=== PATIENT | female | born 1940 | race Caucasian/White ===

== ENCOUNTER → 2023-10-11 09:30 | Outpatient (REF) | payer MEDICARE, OTHER, SELFPAY | LOC: HWRAD 09:30 | PROVIDERS: ATTENDING PHYSICIAN Internal Medicine Geriatric Medicine | DX: R09.89 Other specified symptoms and signs involving the circulatory and respiratory systems (principal) | CPT/HCPCS: 93880 ==

== ENCOUNTER → 2023-11-23 10:31 | Outpatient (REF) | payer OTHER, SELFPAY | LOC: HWRAD 10:31 | PROVIDERS: ATTENDING PHYSICIAN Surgery Vascular Surgery; FAMILY PHYSICIAN Internal Medicine Geriatric Medicine | DX: I65.23 Occlusion and stenosis of bilateral carotid arteries (principal) | CPT/HCPCS: 70496; 70498; Q9967 ==

== ENCOUNTER → 2023-12-29 14:28 | Outpatient (REF) | payer OTHER, SELFPAY | LOC: HWRAD 14:28 | PROVIDERS: ATTENDING PHYSICIAN Internal Medicine Geriatric Medicine; FAMILY PHYSICIAN Internal Medicine Geriatric Medicine | DX: M25.551 Pain in right hip (principal) | CPT/HCPCS: 73522 ==

== ENCOUNTER → 2024-06-13 13:52 | Outpatient (REF) | payer OTHER, SELFPAY | LOC: RAD 13:52 | PROVIDERS: ATTENDING PHYSICIAN Surgery Vascular Surgery; FAMILY PHYSICIAN Internal Medicine Geriatric Medicine | DX: I65.29 Occlusion and stenosis of unspecified carotid artery (principal) | CPT/HCPCS: 93880 ==

== ENCOUNTER → 2024-07-11 14:44 | Outpatient (REF) | payer OTHER, SELFPAY ==
[2024-07-11 16:00] LABS: Blood Urea Nitrogen 20 mg/dl (7-17); Carbon Dioxide 30 mmol/L (22-30); Chloride 103 mmol/L (98-107); Glucose 92 mg/dl (70-99); Sodium 142 mmol/L (135-145); eGFR > 60.00
== END ==
LOC: REG 14:44
PROVIDERS: ATTENDING PHYSICIAN Surgery Vascular Surgery; FAMILY PHYSICIAN Internal Medicine Geriatric Medicine
DX: I65.29 Occlusion and stenosis of unspecified carotid artery (principal)
CPT/HCPCS: 36415; 80048

== ENCOUNTER → 2024-07-26 09:31 | Outpatient (REF) | payer OTHER, SELFPAY | LOC: RAD 09:31 | PROVIDERS: ATTENDING PHYSICIAN Surgery Vascular Surgery; FAMILY PHYSICIAN Internal Medicine Geriatric Medicine | DX: I65.29 Occlusion and stenosis of unspecified carotid artery (principal) | CPT/HCPCS: 70496; 70498; Q9967 ==

== ENCOUNTER → 2024-08-08 09:14 | Outpatient (REF) | payer OTHER, SELFPAY | LOC: HWRCS 09:14 | PROVIDERS: ATTENDING PHYSICIAN Nuclear Medicine Nuclear Cardiology; FAMILY PHYSICIAN Nurse Practitioner Adult Health | DX: R00.2 Palpitations (principal); Z01.810 Encounter for preprocedural cardiovascular examination; I10 Essential (primary) hypertension; I35.1 Nonrheumatic aortic (valve) insufficiency; I65.23 Occlusion and stenosis of bilateral carotid arteries; I34.0 Nonrheumatic mitral (valve) insufficiency; R93.1 Abnormal findings on diagnostic imaging of heart and coronary circulation | CPT/HCPCS: 93306 ==

== ENCOUNTER → 2024-08-15 07:49 | Outpatient (REF) | payer OTHER, SELFPAY | LOC: HWRCS 07:49 | PROVIDERS: ATTENDING PHYSICIAN Nuclear Medicine Nuclear Cardiology; FAMILY PHYSICIAN Nurse Practitioner Adult Health | DX: R00.2 Palpitations (principal); Z01.810 Encounter for preprocedural cardiovascular examination; I10 Essential (primary) hypertension; I35.1 Nonrheumatic aortic (valve) insufficiency; I65.23 Occlusion and stenosis of bilateral carotid arteries; I34.0 Nonrheumatic mitral (valve) insufficiency; R93.1 Abnormal findings on diagnostic imaging of heart and coronary circulation | CPT/HCPCS: 78452; 93017; A9500; J2785 ==

== ENCOUNTER 2024-08-28 06:23 | Inpatient (IN) | payer OTHER, SELFPAY ==
[2024-08-22 09:40] VITALS: BMI 27.2
[2024-08-22 10:01] LABS: % Basophils 1.3 % (0-2); % Eosinophils 3.8 % (0-6); % Immature Granulocytes 0.4 % (0-0.5); % Lymphocytes 17.9 % (20.5-51.1); % Monocytes 9.5 % (1.7-9.3); % Neutrophils 67.1 % (42.2-75.2); Absolute Basophils 0.1 10^3/uL (0-0.2); Absolute Eosinophils 0.2 10^3/uL (0-0.7); Absolute Monocytes 0.5 10^3/uL (0.1-0.6); Absolute Neutrophils 3.8 10^3/uL (1.4-6.5); Hematocrit 40.1 % (37.0-47.0); Hemoglobin 13.3 g/dL (12.0-16.0); Mean Corp Hgb Conc. 33.2 g/dL (33.0-37.0); Mean Corpuscular Hgb 31.9 pg (27.0-31.0); Mean Corpuscular Volume 96.2 fL (81.0-99.0); Mean Platelet Volume 9.8 fL (7.4-10.4); Nucleated Red Blood Cells % 0 %; Platelet Count 192 10^3/uL (130-400); Red Blood Cell Count 4.17 10^6/uL (4.20-5.40); Red Cell Dist. Width 13.3 % (11.5-14.5); White Blood Cell Count 5.6 10^3/uL (4.8-10.8)
[2024-08-22 10:11] LABS: INR 0.89; PT 12.5 Sec (11.4-14.6)
[2024-08-22 10:12] LABS: APTT 25.3 Sec (23.4-35.0)
[2024-08-22 10:16] LABS: Blood Urea Nitrogen 16 mg/dl (7-17); Calcium 9.5 mg/dl (8.4-10.2); Carbon Dioxide 29 mmol/L (22-30); Chloride 105 mmol/L (98-107); Estimated Creatinine Clearance 48 ml/min; Glucose 77 mg/dl (70-99); Potassium 3.7 mmol/L (3.5-5.1); Sodium 142 mmol/L (135-145); eGFR > 60.00
[2024-08-28] VITALS (9 sets, daily range): BP systolic 84–165; BP diastolic 49–89; BMI 26.9
[2024-08-28] MEDS: PERIDEX 0.12% ORAL RINSE 15 ML PO (06:45)
[2024-08-28] MEDS: BACTROBAN NASAL 1 GRAM NASAL (06:45)
[2024-08-28 07:19] LABS: Glucose - Point of Care 97 mg/dl (70-99)
--- NOTE | 2024-08-28 07:35 | W.SUR.PREOP ---
Pre-Operative Surgical Note
-
I have examined this patient prior to the performance of the scheduled procedure.
The patient's condition is unchanged from the time of the current History and
Physical and the patient is able to undergo the scheduled procedure.
[2024-08-28 08:57] LABS: ACT-LR - POC 282 Seconds (116-155)
[2024-08-28 09:29] LABS: ACT-LR - POC 244 Seconds (116-155)
--- NOTE | 2024-08-28 09:57 | OR.RPT ---
Operative Report
Operative Report
Date of Operation: 08/28/2024
Pre Op Diagnosis: High-grade asymptomatic right internal carotid artery stenosis
Post Op Diagnosis: High-grade asymptomatic right internal carotid artery stenosis
Procedure: RIGHT carotid endarterectomy with patch angioplasty using bovine pericardium
Surgeon: Juan R Fernandez III, MD
Child Development Professor: Lewis Haque MD PGY1
Anesthesia: General
Complications: None
History and Indications for Procedure: 83-year-old female with asymptomatic high-grade right internal carotid artery stenosis
Procedure in Detail: Komal Keller was correctly identified and placed supine on the operating table. After adequate induction of anesthesia the right neck was positioned, prepped and draped in the usual sterile fashion. Preoperative antibiotics were
administered. A timeout procedure was performed with the nursing and anesthesia staff confirming the patients identity as well as the nature and laterality of the procedure.
The carotid bifurcation was marked with ultrasound at the beginning of the case. The incision was planned accordingly. An incision was made along the anterior border of the right sternocleidomastoid muscle. Electrocautery was used to divide the
subcutaneous tissue and platysma. The carotid sheath was entered with sharp dissection. The internal jugular vein was retracted laterally. The vagus nerve was identified and protected throughout the case. The common carotid artery was identified at
the base of this incision and carefully encircled with a vessel loop. The patient was systemically heparinized. The dissection was continued distally towards the carotid bifurcation. The facial vein was skeletonized, ligated and divided between silk
ties and clips. The proximal external carotid artery was encircled with a vessel loop. The distal internal carotid artery was encircled with a vessel loop at a soft spot on the artery beyond the plaque. The hypoglossal nerve was identified and
protected.
The internal vessel loop was secured followed by the common and external. An arteriotomy was made on the distal common carotid artery with an 11-blade. This was extended proximally and distally with Mckeon scissors. The arteriotomy was extended
distally through the plaque to an area of normal appearing internal carotid artery. The distal vessel loop was replaced with a short tip hockey-stick type vascular clamp. An endarterectomy was performed with a [place] elevator in the standard
fashion. The proximal extent of the plaque was transected with scissors. The distal end of the plaque in the internal carotid artery was feathered and no distal intimal flap was identified. The plaque extending into the external carotid artery was
everted. Once the plaque was fully removed the endarterectomy plane was irrigated with heparinized saline and any loose fronds of tissue were removed. A pre-cut piece of bovine pericardium was sewn in place using a running 6-0 Prolene suture. Prior
to the completion of the patch the common carotid was allowed to forward bleed and the external was allowed to back bleed. The area under the patch was irrigated with heparinized saline to remove any potential thrombus or debris. The anastomosis was
completed.
The external vessel loop was released first, followed by the common and then the internal. There was an excellent pulse in the distal internal carotid artery. An excellent quality Doppler signal in the distal internal carotid artery was also
confirmed. The patch suture line was closely inspected for hemostasis and was achieved. Protamine was administered. Hemostasis was achieved in the wound bed. The wound was irrigated with saline solution.
The wound was then closed in layers. Sterile skin glue was applied. The patient awoke from anesthesia with no immediate neuro deficits and was taken to the PACU in stable condition.
Attestation: I was present and responsible for the entire procedure
Signed:
Juan R Fernandez III, MD
[facility] Vascular Surgery
[phone] (cell)
--- NOTE | 2024-08-28 10:11 | W.IMMPOSTOP ---
Surgical Immed Post Op Note
-
Primary Surgeon: Rebecca
Assisting Surgeon: Shabnam
Pre-op Diagnosis: R carotid stenosis
Post-op Diagnosis: R carotid stenosis
Procedure Performed: R carotid endarterectomy
Anesthesia Type: General
Specimen / Cultures: None
Estimated Blood Loss: 25 cc
Complications: None
Operative Findings: R carotid stenosis at bifurcation, endarterectomy performed with patch angioplasty
--- NOTE | 2024-08-28 10:28 | CON.INTV ---
Consultation
Consultation Request
Date/Time Consultation Requested: 08/28/2024947
Date/Time Consultation Performed: 08/28/2024 - 1014
Requesting Provider: REJI Del Valle
Performing Provider: Dr. Whyte
Reason for Consultation: s/p R-CEA
Medical History
-
Chief Complaint: Elective right carotid endarterectomy
History of Present Illness:
83-year-old female former tobacco smoker with a past medical history of gastric sarcoma s/p resection, history of Graves' disease, hypercholesterolemia, hypertension, osteopenia, history of bladder cancer, history of diverticulosis and carotid
artery stenosis who presents with elective right carotid endarterectomy. Patient known to vascular surgery with last visit on 08/06/[address] Fernandez. Patient had a recent CTA head/neck on 07/26/2024 showing moderate predominantly noncalcific
atherosclerotic plaque at the origin of the right ICA with associated 80% stenosis. The left carotid bifurcation had <30% stenosis of the left ICA at its origin. Vascular intervention was reviewed including its risks and benefits and she had
agreed to an endarterectomy. Today she underwent a right carotid endarterectomy with patch angioplasty using bovine pericardium. There were no complications and she was transferred to the ICU postoperatively for further care, with inventory worker
services consulted for additional management/recommendations.
When I saw the patient, she was in bed in no acute distress. She has an ice pack on her right side of her neck. Heart rate 51, BP via A-line: 112/45, and saturating 97% on 5 L/min. Patient's daughter, Dm, and the patient's , Will, both
at bedside, and all questions were answered. Patient has a slight left-sided facial droop which she has never had before. Vascular surgery made aware. The patient otherwise feels fine, denying shortness of breath, chest pain, MILAN, nausea, fevers
or chills. Also no tingling or weakness in any extremity.
PMHx: Gastric sarcoma s/p stomach resection, Hx of Graves disease, high cholesterol, hypertension, Osteopenia, pessary--removed in favor of surgical treatment, bladder CA, chronic adhesional pain s/p abdominal surgery, mild MR and mild-moderate AR
on Echo 01/16/19, colonoscopy 09/12/2017 [facility]: diverticulosis; repeat 5 years (2022), carotid artery stenosis
PSHx: Breast reduction, WALT/BSO, appendectomy, cholecystectomy, gastric sarcoma resection in her stomach, bladder lift, bladder carcinoma curettage/excision
Past Medical History
Past Medical History: Other (Above as per HPI)
Past Surgical History: Other (Above as per HPI)
Social History
Tobacco: Former Smoker (Quit 5-10 years ago, smoked 1 pack/day for 65-70 years)
Alcohol: None
Drug: None
Family History
Family History: CAD (Mother: History of DE) and Cancer (Father, mother + sibling: Colon cancer; Maternal grandmother: Breast cancer)
Allergies / Home Medications
Allergies
Allergy/AdvReac Type Severity Reaction Status Date / Time
No Known Allergies Allergy Verified 08/28/24 06:36
Home Medications
�Medication �Instructions �Recorded �Confirmed �Last Taken �Type
acetaminophen 500 mg tablet 1,000 mg PO BID 08/20/24 08/20/24 Unknown History
amlodipine 10 mg tablet 10 mg PO DAILY 08/20/24 08/20/24 08/27/24 09:00 History
aspirin 81 mg capsule 81 mg PO DAILY 08/20/24 08/20/24 08/28/24 05:45 History
calcium 600 mg (as carbonate)-vit 1 tab PO DAILY 08/20/24 08/20/24 08/27/24 22:00 History
D3 20 mcg (800 unit) chewable
tablet (Caltrate plus D)
cholecalciferol (vitamin D3) 25 25 mcg PO DAILY 08/20/24 08/20/24 08/27/24 22:00 History
mcg (1,000 unit) capsule (Vitamin
D3)
folic acid 1 mg tablet 1 mg PO DAILY 08/20/24 08/20/24 08/27/24 09:00 History
levothyroxine 88 mcg tablet 88 mcg PO DAILY 08/20/24 08/20/24 08/28/24 05:45 History
lisinopril 10 mg tablet 10 mg PO DAILY 08/20/24 08/20/24 08/28/24 05:45 History
mecobalamin (vitamin B12) 1,000 1,000 mcg PO DAILY 08/20/24 08/20/24 08/27/24 22:00 History
mcg chewable tablet (B12 Active)
pravastatin 20 mg tablet 20 mg PO HS 08/20/24 08/20/24 08/27/24 09:00 History
trazodone 50 mg tablet 100 mg PO HS 08/20/24 08/20/24 08/27/24 22:00 History
Review of Systems
-
History Source: Patient
All other systems: Negative unless noted
Vitals / Labs / Diagnostic Testing
Vital Signs
Temp Pulse Resp BP Pulse Ox
98.2 F 44 14 106/54 98
08/28/24 11:55 08/28/24 12:45 08/28/24 12:45 08/28/24 12:00 08/28/24 12:45
Lab Data
08/28/24 10:35
08/28/24 10:35
Diagnostic Testing:
Physical Exam
-
HEENT: Normocephalic and Anicteric
Cardiovascular: S1/S2 and Peripheral Edema (negative)
Respiratory: Wheeze (negative), Rales (negative), Rhonchi (negative) and Non-Labored Respirations
GI: Soft, Non Distended, Non Tender and Normal Bowel Sounds
Neurology: Awake, Alert, Tremors (negative) and Other (Mild facial droop on the left with flattening of her nasolabial fold; normal labor delivery rn strength bilaterally and normal foot dorsi/plantarflexion bilaterally; normal sensation to light touch in all 4
extremities)
Skin: Warm and Dry
General: Respiratory Distress (negative), Comfortable, Fever (negative) and Chills (negative)
Assessment
-
Assessment: 83-year-old female former tobacco smoker with a past medical history of gastric sarcoma s/p resection, history of Graves' disease, hypercholesterolemia, hypertension, osteopenia, history of bladder cancer, history of diverticulosis and
carotid artery stenosis who presents with elective right carotid endarterectomy. Patient known to vascular surgery with last visit on 08/06/[address] Fernandez. Patient had a recent CTA head/neck on 07/26/2024 showing moderate predominantly
noncalcific atherosclerotic plaque at the origin of the right ICA with associated 80% stenosis. The left carotid bifurcation had <30% stenosis of the left ICA at its origin. Vascular intervention was reviewed including its risks and benefits and
she had agreed to an endarterectomy. Today she underwent a right carotid endarterectomy with patch angioplasty using bovine pericardium. There were no complications and she was transferred to the ICU postoperatively for further care, with
inventory worker services consulted for additional management/recommendations.
Chronic conditions RADIO COMMUNICATION COORDINATOR: Gastric sarcoma s/p stomach resection, Hx of Graves disease, high cholesterol, hypertension, Osteopenia, pessary--removed in favor of surgical treatment, bladder CA, chronic adhesional pain s/p abdominal surgery, mild MR and
mild-moderate AR on Echo 01/16/19, colonoscopy 09/12/2017 [facility]: diverticulosis; repeat 5 years (2022), carotid artery stenosis
Impression:
#High-grade asymptomatic right internal carotid artery stenosis s/p right carotid endarterectomy with patch angioplasty using bovine pericardium (POD #0)
#Anemia
#Former tobacco smoker (quit 5-10 years ago, smoked 1 pack/day for 65-70 years)
#History of gastric sarcoma s/p resection
#History of Graves' disease
#Hypercholesterolemia
#Hypertension
#History of bladder cancer
Plan:
Postoperative surgical intensive care unit monitoring
Supplemental oxygen as needed to maintain SpO2 >90-94%
prn nebulized bronchodilators � not currently bronchospastic
Incentive spirometry encouraged 10x per hour for at least 4 hrs a day
Aspiration precautions
Pain control
Neuro and vascular checks per protocol
Maintain MAP>65
Replete electrolytes with K>4, Mg>2
Maintain euglycemia with goal BG 140-180
Vascular surgery following-correspondence and operative notes reviewed
Transfuse blood products as needed to keep Hb>7g/dL, and plt>50k (given post-operative status)
She does not qualify for lung cancer screening giving she is >80 years old
DVT prophylaxis
Early nutrition
Early mobilization
Critical care statement: A total of 37 minutes of critical care time was provided for this patient today. This includes management of unstable vital signs, evaluation of the patient at bedside, reviewing the patient's pertinent medical records
including radiographs, microbiology, laboratory evaluations, and discussion with primary team, consultants, pharmacy, nutrition, physical therapy, case management, charge nurse, critical care nursing, and respiratory therapy.
[2024-08-28] MEDS: SUBLIMAZE 50 MCG IV (10:38)
[2024-08-28 10:55] LABS: Hematocrit 35.2 % (37.0-47.0); Hemoglobin 11.7 g/dL (12.0-16.0); Mean Corp Hgb Conc. 33.2 g/dL (33.0-37.0); Mean Corpuscular Hgb 31.9 pg (27.0-31.0); Mean Corpuscular Volume 95.9 fL (81.0-99.0); Mean Platelet Volume 9.6 fL (7.4-10.4); Platelet Count 166 10^3/uL (130-400); Red Blood Cell Count 3.67 10^6/uL (4.20-5.40); Red Cell Dist. Width 13.5 % (11.5-14.5)
[2024-08-28] MEDS: NEO-SYNEPHRINE 250 IV (10:57)
[2024-08-28 11:01] LABS: Blood Urea Nitrogen 16 mg/dl (7-17); Calcium 8.6 mg/dl (8.4-10.2); Carbon Dioxide 25 mmol/L (22-30); Chloride 109 mmol/L (98-107); Estimated Creatinine Clearance 48 ml/min; Glucose 105 mg/dl (70-99); Potassium 3.9 mmol/L (3.5-5.1); Sodium 140 mmol/L (135-145); eGFR > 60.00
[2024-08-28] MEDS: SUBLIMAZE 25 MCG IV (11:17)
[2024-08-28] MEDS: NSS 1000 IV (12:03)
[2024-08-28] MEDS: TYLENOL 650 MG PO ×3 (12:40→21:29)
--- NOTE | 2024-08-28 12:40 | W.PN.UPDATE ---
Update Note
Progress Note Update
Notified by RN via [place] text the patient is exhibiting facial asymmetry, patient is status post right carotid endarterectomy. Responded to bedside immediately following notification to assess patient. Patient resting in bed comfortably with equal
strength at bilateral upper extremities and lower extremities and no drift noted with left at either bilateral upper or lower extremity. Denies vision changes, headache, aphasia, dysphagia, nausea, vomiting, or unilateral weakness. Family is at
bedside and notes that she did have some intermittent thickness to some words, currently cannot appreciate. Patient is right-handed. Low suspicion for stroke given no additional signs or symptoms accompanying right sided facial droop, believe this
is likely injury to the mandibular nerve. Updated attending Dr. 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 Patient will continue with close monitoring in
ICU.
--- NOTE | 2024-08-28 12:53 | PTCARENOTE ---
Pt admitted to ICU bed 3365 from PACU. Noted very slight left sided facial droop during handoff. NIH 2 for droop and slightly slurred speech. Vascular HEAVY DUTY CUSTODIAN notified immediately and came to bedside to assess. No new orders at this time. Received
on Phenylephrine at 40mcg/min, now at 20. BP via right radial a-line. PRN Tylenol given for c/o mild headache and right neck pain. Incision C/D/I, ice applied. Pt resting at this time. Family at bedside.
--- NOTE | 2024-08-28 18:28 | PTCARENOTE ---
Pt alert and oriented. Forgetful which is her baseline per family. Continues to have slight facial droop. Slurred speech seems improved. Extremity strength equal. 'Little bit of a headache' and right neck pain improves with Tylenol. All other
assessments unchanged.
[2024-08-28] MEDS: HEPARIN 5000 UNITS SC (19:52)
[2024-08-28] MEDS: PRAVACHOL 20 MG PO (23:00)
[2024-08-29] VITALS (19 sets, daily range): BP systolic 76–130; BP diastolic 37–73; BMI 27.0
[2024-08-29] MEDS: NSS 1000 IV (01:35)
--- NOTE | 2024-08-29 03:29 | PTCARENOTE ---
received pt from daysokneri RN, patient in room eating dinner, no c/o pain at this time, neuro checks q1hr, patient has slight L facial droop, per prior shift this is normal post op, no difficulty swallowing, speaking, no uneven traffic personnel supervisor or unequal
strength.
kin remains on for sbp of 97, a line patent, patient pleasant but wanting to get oob.
--- NOTE | 2024-08-29 03:31 | PTCARENOTE ---
while patient turning about in bed, she pulled out her IV in L upper arm, currently has patent iv in L lower arm, patient c/o headache, tylenol given with effective results. purewick in place no urine as of yet.
[2024-08-29] MEDS: TYLENOL 650 MG PO ×3 (04:22→14:55)
[2024-08-29 04:34] LABS: Hematocrit 32.3 % (37.0-47.0); Hemoglobin 10.6 g/dL (12.0-16.0); Mean Corp Hgb Conc. 32.8 g/dL (33.0-37.0); Mean Corpuscular Hgb 31.9 pg (27.0-31.0); Mean Corpuscular Volume 97.3 fL (81.0-99.0); Mean Platelet Volume 9.8 fL (7.4-10.4); Platelet Count 164 10^3/uL (130-400); Red Blood Cell Count 3.32 10^6/uL (4.20-5.40); White Blood Cell Count 13.1 10^3/uL (4.8-10.8)
[2024-08-29 04:50] LABS: INR 1.03; PT 13.8 Sec (11.4-14.6)
[2024-08-29 05:02] LABS: Blood Urea Nitrogen 27 mg/dl (7-17); Calcium 8.7 mg/dl (8.4-10.2); Carbon Dioxide 21 mmol/L (22-30); Chloride 108 mmol/L (98-107); Estimated Creatinine Clearance 38 ml/min; Glucose 141 mg/dl (70-99); Potassium 4.2 mmol/L (3.5-5.1); Sodium 138 mmol/L (135-145); eGFR 55.21
[2024-08-29] MEDS: SYNTHROID 75 MCG PO (05:36)
[2024-08-29] MEDS: HEPARIN 5000 UNITS SC ×2 (07:48→20:35)
--- NOTE | 2024-08-29 08:10 | W.PN.INTV ---
Addendum entered and electronically signed by Wilder Whyte MD 08/29/24 20:31:
CDI inquiry response: Anemia is suspected to be acute dilutional anemia
Original Note:
Today's Communication / Plan
Recommendations
Up OOB as tolerated
Pain control
PT/OT
Maintain SpO2 >90-94%
Encourage incentive spirometer
Continue ICU level care until deemed stable for downgrade per vascular surgery. Once she is downgraded then we will sign off at that time.
Assessment
-
Assessment: 83-year-old female former tobacco smoker with a past medical history of gastric sarcoma s/p resection, history of Graves' disease, hypercholesterolemia, hypertension, osteopenia, history of bladder cancer, history of diverticulosis and
carotid artery stenosis who presents with elective right carotid endarterectomy. Patient known to vascular surgery with last visit on 08/06/[address] Fernandez. Patient had a recent CTA head/neck on 07/26/2024 showing moderate predominantly
noncalcific atherosclerotic plaque at the origin of the right ICA with associated 80% stenosis. The left carotid bifurcation had <30% stenosis of the left ICA at its origin. Vascular intervention was reviewed including its risks and benefits and
she had agreed to an endarterectomy. Today she underwent a right carotid endarterectomy with patch angioplasty using bovine pericardium. There were no complications and she was transferred to the ICU postoperatively for further care, with
candy spreader helper services consulted for additional management/recommendations.
Chronic conditions DOCUMENT PROCESSING SPECIALIST: Gastric sarcoma s/p stomach resection, Hx of Graves disease, high cholesterol, hypertension, Osteopenia, pessary--removed in favor of surgical treatment, bladder CA, chronic adhesional pain s/p abdominal surgery, mild MR and
mild-moderate AR on Echo 01/16/19, colonoscopy 09/12/2017 [facility]: diverticulosis; repeat 5 years (2022), carotid artery stenosis
Impression:
#High-grade asymptomatic right internal carotid artery stenosis s/p right carotid endarterectomy with patch angioplasty using bovine pericardium (POD #1)
#Anemia
#Former tobacco smoker (quit 5-10 years ago, smoked 1 pack/day for 65-70 years)
#History of gastric sarcoma s/p resection
#History of Graves' disease
#Hypercholesterolemia
#Hypertension
#History of bladder cancer
Plan:
Postoperative surgical intensive care unit monitoring
Supplemental oxygen as needed to maintain SpO2 >90-94%
prn nebulized bronchodilators � not currently bronchospastic
Incentive spirometry encouraged 10x per hour for at least 4 hrs a day
Aspiration precautions
Pain control
Neuro and vascular checks per protocol
Maintain MAP>65
Replete electrolytes with K>4, Mg>2
Maintain euglycemia with goal BG 140-180
Vascular surgery following-correspondence and operative notes reviewed
Transfuse blood products as needed to keep Hb>7g/dL, and plt>50k (given post-operative status)
She does not qualify for lung cancer screening giving she is >80 years old
DVT prophylaxis
Early nutrition
Early mobilization
Continue ICU level care until deemed stable for downgrade per vascular surgery. Once she is downgraded then we will sign off at that time.
Total time spent today was 56 minutes for this encounter. Time includes reviewing laboratory test/imaging results, reviewing pertinent medical records, obtaining and reviewing medical history, performing an appropriate exam, ordering medications,
tests and procedures. Time also includes documentation of this encounter, coordinating patient care and communicating with other healthcare professionals. Total time does not include separately billed tests performed on this date of service.
Subjective Dataa
Subjective Data
Date of Service:
Date of Service: August 29, 2024
Chief Complaint: Bottom Crane Operator Follow Up
Subjective:
Pt seen this AM. HR 43, BP 108/56 and SpO2 95% on room air. Off kin since 730AM today. She feels well, sitting in chair no acute distress with family members at bedside. Denies chest pain, MILAN, nausea, fevers or chills.
Review of Systems
General: Other (Negative unless mentioned above)
Objective Data
Data Reviewed
Vital Signs / I&O / Oxygen:
Vital Signs
Temp Pulse Resp BP Pulse Ox
97.6 F 54 16 106/54 92
08/29/24 08:25 08/29/24 07:30 08/29/24 07:30 08/28/24 12:00 08/29/24 07:00
Intake and Output
08/28/24 08/29/24 08/30/24
06:59 06:59 06:59
Intake Total 1911 160 / 160
Output Total 100 / 100
Balance 1911 60 / 60
SaO2 92
Nasal Cannula flow liters per 2
minute
Physical Exam
General: Respiratory Distress (n), Comfortable and Chills (n)
HEENT: Normocephalic and Anicteric
Cardiovascular: S1-S2, Peripheral Edema (n) and Other (Bradycardic)
Respiratory: Wheeze (n), Crackles (Bibasilar) and Rhonchi (n)
GI: Soft, Non Distended, Non Tender and Normal Bowel Sounds
Neurology: AO x 3 and Tremors (n)
Skin: Warm and Dry
Labs/Micro/Reports
Lab Data
08/29/24 04:17
08/29/24 04:17
Laboratory Results
08/29/24
04:17
PT 13.8
INR 1.03
APTT 27.0
--- NOTE | 2024-08-29 08:23 | W.PN.VS ---
Addendum entered and electronically signed by Juan R Fernandez III, MD 08/29/24 10:30:
This patient was seen and examined in collaboration with REJI Banegas. I agree with the history and physical exam as well as the assessment and plan. I have the following additions:
Grossly nonfocal neuroexam
No complaints this morning
Neck incision clean and dry
Neck is soft
Agree with plan
Signed:
Juan R Fernandez III, MD
[facility] Vascular Surgery
[phone] (akqg)
Original Note:
Today's Communication / Plan
-
Patient seen and examined at bedside with Dr. Juan R Fernandez III, below plan reviewed with attending.
Assessment/Plan
-
Assessment: 83-year-old female POD #1 right carotid endarterectomy
Plan:
Wean off Antonio-Synephrine infusion as tolerated and discontinue arterial line
Discontinue IV fluids
OOB to chair with progression to ambulation as tolerated
Continue aspirin and statin
Possible discharge later this afternoon pending patient progression
Subjective Data
-
Date of Service: August 29, 2024
Patient seen and examined at bedside, offers no complaints. Denies headache, nausea, vomiting, fever, and chills. Endorses no difficulty with swallowing.
Objective Data
-
Vital Signs
Temp Pulse Resp BP Pulse Ox
97.6 F 54 16 106/54 92
08/28/24 15:56 08/29/24 07:30 08/29/24 07:30 08/28/24 12:00 08/29/24 07:00
Intake and Output
08/28/24 08/29/24 08/30/24
06:59 06:59 06:59
Intake Total 1911 160 / 160
Output Total 100 / 100
Balance 1911 60 / 60
Intake:
Oral fluids 400 / 400
IV fluids (Total) 1512 / 1592 160 / 160
Nss 1,000 ml @ 80 mls/hr IV . 1440 / 1520 160 / 160
[id number] SUMEET Rx#:[id number]
Phenylephrine 72 / 72
Output:
Urine, Voided 100 / 100
Other:
Number of approximated MODERATE 1
amounts of urine
Lab Results
08/29/24 04:17
08/29/24 04:17
Calcium 8.7 mg/dl (8.4-10.2) 08/29/24 04:17
Physical Exam
-
No apparent distress, resting in bed comfortably
Scant right-sided nasolabial fold paralysis (unchanged from postop), tongue midline, right neck surgical incision CDI with no evidence of hematoma or edema
No tachycardia
No dyspnea on room air
ABD flat, nontender, nondistended
Moves bilateral upper extremities and lower extremities with equal strength spontaneously and to command
[2024-08-29] MEDS: ZESTRIL PO (08:34)
[2024-08-29] MEDS: NORVASC PO (08:34)
[2024-08-29] MEDS: FOLVITE 1 MG PO (08:59)
[2024-08-29] MEDS: VITAMIN D3 (cholecalciferol) 25 MCG PO (08:59)
[2024-08-29] MEDS: OSCAL 500 + D 500 MG PO (08:59)
[2024-08-29] MEDS: LOW STRENGTH ASPIRIN 81 MG PO (08:59)
[2024-08-29] MEDS: VITAMIN B-12 1000 MCG PO (10:20)
--- NOTE | 2024-08-29 10:31 | PN.CDI ---
CDI
- -
CDI:
Physician Documentation Request
Admit Date: 08/28/24 06:23
Dear Doctor,
Please review the following and provide your response in the progress notes.
Clinical Indicators:
Pt admitted with right carotid stenosis s/p carotid endarterectomy 08/28
Linotyper consult, ' #Anemia...'
Trended Hemoglobin/Hematocrit below
08/22/24 08/28/24 08/29/24
09:51 10:35 04:17
Hgb 13.3 11.7 L 10.6 L
Hct 40.1 35.2 L 32.3 L
Based on the above, could you clarify, in your progress note, which of the following is the most likely type of anemia you are evaluating, monitoring and/or treating?
Acute blood loss anemia
Drop in hemoglobin only
Other ( please specify)
Use of terms such as suspected, likely, concern for, or probable (associated with a specific diagnosis that is being evaluated, monitored, or treated as if it exists) are acceptable and can be coded in the inpatient setting, when documented at the
time of discharge.
Thank you,
Maddie Abarca RN
CDI Specialist
[place] [employer]
Please use your independent medical judgment in providing your response.
--- NOTE | 2024-08-29 12:51 | CM ---
CM following re: discharge planning.
Reviewed pt's chart, met with pt.
Pt is an 83 year old female, admitted with primary dx of POD #1 right carotid endarterectomy. pt stated she was told by she will be discharged home tomorrow. IMM reviewed, placed on chart, pt has a copy.
Pt reports she lives with in an independent apartment at [facility], has 3 supportive children. 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 No DME, VN or SNF history. Pt has been observed walking independently in her room.
Pt reports her just had chest RX and might be admitted to the hospital.
PCP: Fritz Goodrich
Pharmacy: [facility].
D/C plan: home with anticipated no needs. Family to transport at discharge.
--- NOTE | 2024-08-29 13:22 | PTCARENOTE ---
Pt AAOx3, forgetful. Neuro checks WNL. OOB in chair. Ambulating with steady gait. BP stable off phenylephrine. Sinus pietro HR 45. Denies pain. Good appetite.
--- NOTE | 2024-08-29 17:32 | PTCARENOTE ---
PRN Tylenol given for c/o dull headache. Neurochecks WNL. All other assessments unchanged.
--- NOTE | 2024-08-29 20:39 | PTCARENOTE ---
Pt AAOx3 forgetful at times. Q4 neuro checks. Sinus pietro HR in the 40's. Denies pain has slight tenderness at incision site. Pt had no complaints at this time. Bed alarm communications director gold within reach.
[2024-08-29] MEDS: PRAVACHOL 20 MG PO (21:49)
[2024-08-29] MEDS: TUMS EX (EXTRA STRENGTH) CHEWABLE TABLET 600 MG PO (23:52)
[2024-08-30] VITALS (11 sets, daily range): BP systolic 106–130; BP diastolic 50–72; BMI 28.3
--- NOTE | 2024-08-30 00:04 | PTCARENOTE ---
Pt having complaints of 'heart burn' feeling pt requesting Tums. KIDS ACTIVITIES COACH made aware order for Tums placed. Pt denies pain at surgical site, just tenderness.
[2024-08-30] MEDS: SYNTHROID 75 MCG PO (04:25)
[2024-08-30 04:50] LABS: Hematocrit 32.5 % (37.0-47.0); Hemoglobin 10.5 g/dL (12.0-16.0); Mean Corp Hgb Conc. 32.3 g/dL (33.0-37.0); Mean Corpuscular Volume 99.1 fL (81.0-99.0); Mean Platelet Volume 9.9 fL (7.4-10.4); Platelet Count 151 10^3/uL (130-400); Red Blood Cell Count 3.28 10^6/uL (4.20-5.40); Red Cell Dist. Width 14.2 % (11.5-14.5); White Blood Cell Count 10.9 10^3/uL (4.8-10.8)
[2024-08-30 05:40] LABS: Blood Urea Nitrogen 37 mg/dl (7-17); Calcium 9.8 mg/dl (8.4-10.2); Carbon Dioxide 24 mmol/L (22-30); Chloride 109 mmol/L (98-107); Estimated Creatinine Clearance 43 ml/min; Glucose 99 mg/dl (70-99); Potassium 4.4 mmol/L (3.5-5.1); Sodium 139 mmol/L (135-145); eGFR > 60.00
--- NOTE | 2024-08-30 06:10 | PTCARENOTE ---
Pt appearing to get some rest though out night. Respiration even unlabored. Spo2 spo2 check at 92%. Q4 Neuro exam unremarkable. Right carotid surgical site clean dry intact, slight ecchymosis.
--- NOTE | 2024-08-30 07:20 | PTCARENOTE ---
Received pt in bed. Right neck incision MARY, approximated with purple ecchymosis along the incision line. Right AC#20g protective catheter flushed and patent. Lungs dim in the bases. Exertional wheeze, denies SOB. Good peripheral pulses, no edema.
+BSx4. Fair appetite. She was encouraged to take Colace or Senokot when she gets home if she feels full and constipated. She was informed of the plan of care. Safe environment maintained.
[2024-08-30] MEDS: HEPARIN 5000 UNITS SC (07:56)
[2024-08-30] MEDS: OSCAL 500 + D 500 MG PO (07:56)
[2024-08-30] MEDS: VITAMIN D3 (cholecalciferol) 25 MCG PO (07:56)
[2024-08-30] MEDS: FOLVITE 1 MG PO (07:56)
[2024-08-30] MEDS: LOW STRENGTH ASPIRIN 81 MG PO (07:56)
[2024-08-30] MEDS: NORVASC 10 MG PO (08:00)
--- NOTE | 2024-08-30 08:00 | PTCARENOTE ---
Verified with Yadira MENDOZA regarding the administration of her Norvasc & Zestril given HR 40's and SBP was 106. Will administer as ordered. Pt was instructed to call for ambulation and to sit up first then manager of international place then ambulates as long as
she has no dizziness.
[2024-08-30] MEDS: ZESTRIL 10 MG PO (08:05)
[2024-08-30] MEDS: VITAMIN B-12 1000 MCG PO (08:07)
--- NOTE | 2024-08-30 08:10 | W.PN.INTV ---
Today's Communication / Plan
Recommendations
Up OOB as tolerated
Pain control
PT/OT
Maintain SpO2 >90-94%
Encourage incentive spirometer
Patient is being prepared for discharge home today. No additional recommendations at this time. Event Coordinator/Pulmonary service will now sign off. Please reconsult if there are any additional questions/concerns, or if patient's respiratory status
deteriorates.
Assessment
-
Assessment: 83-year-old female former tobacco smoker with a past medical history of gastric sarcoma s/p resection, history of Graves' disease, hypercholesterolemia, hypertension, osteopenia, history of bladder cancer, history of diverticulosis and
carotid artery stenosis who presents with elective right carotid endarterectomy. Patient known to vascular surgery with last visit on 08/06/[address] Fernandez. Patient had a recent CTA head/neck on 07/26/2024 showing moderate predominantly
noncalcific atherosclerotic plaque at the origin of the right ICA with associated 80% stenosis. The left carotid bifurcation had <30% stenosis of the left ICA at its origin. Vascular intervention was reviewed including its risks and benefits and
she had agreed to an endarterectomy. Today she underwent a right carotid endarterectomy with patch angioplasty using bovine pericardium. There were no complications and she was transferred to the ICU postoperatively for further care, with
screen tacker services consulted for additional management/recommendations.
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
mild-moderate AR on Echo 01/16/19, colonoscopy 09/12/2017 [facility]: diverticulosis; repeat 5 years (2022), carotid artery stenosis
Impression:
#High-grade asymptomatic right internal carotid artery stenosis s/p right carotid endarterectomy with patch angioplasty using bovine pericardium (POD #2)
#Anemia
#Former tobacco smoker (quit 5-10 years ago, smoked 1 pack/day for 65-70 years)
#History of gastric sarcoma s/p resection
#History of Graves' disease
#Hypercholesterolemia
#Hypertension
#History of bladder cancer
Plan:
Postoperative surgical intensive care unit monitoring
Supplemental oxygen as needed to maintain SpO2 >90-94%
prn nebulized bronchodilators � not currently bronchospastic
Incentive spirometry encouraged 10x per hour for at least 4 hrs a day
Aspiration precautions
Pain control
Neuro and vascular checks per protocol
Maintain MAP>65
Replete electrolytes with K>4, Mg>2
Maintain euglycemia with goal BG 140-180
Vascular surgery following-correspondence and operative notes reviewed
Transfuse blood products as needed to keep Hb>7g/dL, and plt>50k (given post-operative status)
She does not qualify for lung cancer screening giving she is >80 years old
DVT prophylaxis
Early nutrition
Early mobilization
Patient is being prepared for discharge home today. No additional recommendations at this time. Event Coordinator/Pulmonary service will now sign off. Thank you for allowing us to be involved in the care of this patient. Please reconsult if there are
any additional questions/concerns, or if patient's respiratory status deteriorates.
Total time spent today was 26 minutes for this encounter. Time includes reviewing laboratory test/imaging results, reviewing pertinent medical records, obtaining and reviewing medical history, performing an appropriate exam, ordering medications,
tests and procedures. Time also includes documentation of this encounter, coordinating patient care and communicating with other healthcare professionals. Total time does not include separately billed tests performed on this date of service.
Subjective Dataa
Subjective Data
Date of Service:
Date of Service: August 30, 2024
Chief Complaint: Event Coordinator Follow Up
Subjective:
Patient seen and evaluated this morning. Still off Antonio-Synephrine since yesterday. Currently, heart rate 45 and she is asymptomatic. She is being discharged home today. She feels well, denying chest pain, MILAN, nausea, fevers or chills.
Review of Systems
General: Other (Negative unless mentioned above)
Objective Data
Data Reviewed
Vital Signs / I&O / Oxygen:
Vital Signs
Temp Pulse Resp BP Pulse Ox
98.3 F 43 13 129/55 92
08/30/24 03:43 08/30/24 08:05 08/30/24 08:00 08/30/24 08:05 08/29/24 21:16
Intake and Output
08/29/24 08/30/24 08/31/24
06:59 06:59 06:59
Intake Total 1911 460 / 460
Output Total 150 / 150
Balance 1911 310 / 310
SaO2 92
Nasal Cannula flow liters per 2
minute
Physical Exam
General: Respiratory Distress (n), Comfortable and Chills (n)
HEENT: Normocephalic and Anicteric
Cardiovascular: S1-S2, Peripheral Edema (n) and Other (Bradycardic)
Respiratory: Wheeze (n), Crackles (Bibasilar) and Rhonchi (n)
GI: Soft, Non Distended, Non Tender and Normal Bowel Sounds
Neurology: AO x 3 and Tremors (n)
Skin: Warm and Dry
Labs/Micro/Reports
Lab Data
08/30/24 04:37
08/30/24 04:37
--- NOTE | 2024-08-30 09:03 | W.PN.VS ---
Addendum entered and electronically signed by Juan R Fernandez III, MD 08/30/24 11:32:
This patient was seen and examined in collaboration with REJI Castillo. I agree with the history and physical exam as well as the assessment and plan. I have the following additions:
Blood pressure improved
Remains bradycardic but asymptomatic
Neck incision clean and dry
Neck soft
Will plan for discharge later today
Signed:
Juan R Fernandez III, MD
[facility]
[phone] (cell)
Original Note:
Today's Communication / Plan
-
Seen and assessed with Dr Fernandez
Assessment/Plan
-
Assessment: 83-year-old female POD #2 right carotid endarterectomy
Plan:
OK for discharge this am after home meds administered and tolerated
Subjective Data
-
Date of Service: August 30, 2024
Pt seen at bedside this am with Dr Fernandez. Pt offers no complaints at this time. No events overnight. BP stable
Objective Data
-
Vital Signs
Temp Pulse Resp BP Pulse Ox
98.3 F 43 13 129/55 92
08/30/24 03:43 08/30/24 08:05 08/30/24 08:00 08/30/24 08:05 08/29/24 21:16
Intake and Output
08/29/24 08/30/24 08/31/24
06:59 06:59 06:59
Intake Total 1911 460 / 460
Output Total 150 / 150
Balance 1911 310 / 310
Intake:
Oral fluids 400 / 400 300 / 300
IV fluids (Total) 1512 / 1592 160 / 160
Nss 1,000 ml @ 80 mls/hr IV . 1440 / 1520 160 / 160
[id number] SUMEET Rx#:[id number]
Phenylephrine 72 / 72
Output:
Urine, Voided 150 / 150
Other:
Number of approximated MODERATE 1 1
amounts of urine
Number of approximated LARGE 1
amounts of urine
Lab Results
08/30/24 04:37
08/30/24 04:37
Calcium 9.8 mg/dl (8.4-10.2) 08/30/24 04:37
Physical Exam
-
No apparent distress, resting in bed comfortably
Right neck surgical incision CDI with no evidence of hematoma or edema
No tachycardia
No dyspnea on room air
ABD flat, nontender, nondistended
Moves bilateral upper extremities and lower extremities with equal strength spontaneously and to command
--- NOTE | 2024-08-30 11:19 | PTCARENOTE ---
She tolerated ambulating on the unit with RN. BP stable. She did not experience any dizziness, or SOB. Her was informed of the plan of care for possible discharge in several hours.
--- NOTE | 2024-08-30 11:21 | W.DS.TRANS ---
DC Summary - Power Distribution Engineer
-
Discharge Instructions:
Discharge Diagnosis/Procedures Right carotid endarterectomy
Diet As tolerated
Activity No strenuous activity
Driving Restrictions Not until seen by your Dr
Bathing Restrictions OK to Shower
Instructions:
Stand-Alone Forms:
Changes to Home Medications: No
Discharge Medications:
DC Medications w/original date entered in [employer]
acetaminophen 500 mg tablet 1,000 mg PO BID 08/20/24
amlodipine 10 mg tablet 10 mg PO DAILY 08/20/24
aspirin 81 mg capsule 81 mg PO DAILY 08/20/24
calcium 600 mg (as carbonate)-vit D3 20 mcg (800 unit) chewable tablet (Caltrate plus D) 1 tab PO DAILY 08/20/24
cholecalciferol (vitamin D3) 25 mcg (1,000 unit) capsule (Vitamin D3) 25 mcg PO DAILY 08/20/24
folic acid 1 mg tablet 1 mg PO DAILY 08/20/24
levothyroxine 88 mcg tablet 75 mcg PO DAILY 08/20/24
lisinopril 10 mg tablet 10 mg PO DAILY 08/20/24
mecobalamin (vitamin B12) 1,000 mcg chewable tablet (B12 Active) 1,000 mcg PO DAILY 08/20/24
pravastatin 20 mg tablet 20 mg PO HS 08/20/24
trazodone 50 mg tablet 100 mg PO HS 08/20/24
rivastigmine 4.6 mg/24 hour transdermal patch 1 patch transdermal DAILY 08/28/24
Home Medication Changes
Pending Results: No
--- NOTE | 2024-08-30 11:31 | CM ---
CM following re: discharge planning.
Reviewed pt's chart, met with pt.
Discharge order noted. pt is aware, expressed her agreement with discharge and she stated her and daughter are coming to transport home. IMM reviewed yesterday.
Pt reports she walks independently and she does not need after care VN services.
D/C plan: home no needs. and daughter to transport.
--- NOTE | 2024-08-30 12:10 | PTCARENOTE ---
EKG obtained. Per Kirstin MENDOZA, Dr. Fernandez said OK for discharge.
--- NOTE | 2024-08-30 13:24 | PTCARENOTE ---
All discharge instructions read aloud. Pt's daughter is aware of physician follow-up visit, medications yet to take tonight. Reviewed S/S stroke and to call 911 to expedite care. Understanding verbalized. She was escorted to the car via wheelchair
and seat belt placed on pt.
== END 2024-08-30 13:25 | disposition home or self-care (01) | DRG 38 ==
LOC: ICU 06:23
PROVIDERS: Nurse Practitioner; ADMITTING PHYSICIAN Surgery Vascular Surgery; CONSULT PHYSICIAN Internal Medicine Critical Care Medicine; FAMILY PHYSICIAN Internal Medicine Geriatric Medicine
PROC: 03UK0KZ Supplement Right Internal Carotid Artery with Nonautologous Tissue Substitute, Open Approach (ICD-10-PCS; 2024-08-28)
PROC: 03CK0ZZ Extirpation of Matter from Right Internal Carotid Artery, Open Approach (ICD-10-PCS; 2024-08-28)
DX: I65.21 Occlusion and stenosis of right carotid artery (principal); G97.81 Other intraoperative complications of nervous system; I10 Essential (primary) hypertension; E78.00 Pure hypercholesterolemia, unspecified; M85.80 Other specified disorders of bone density and structure, unspecified site; E03.9 Hypothyroidism, unspecified; I08.0 Rheumatic disorders of both mitral and aortic valves; K21.9 Gastro-esophageal reflux disease without esophagitis; D64.89 Other specified anemias; Y83.8 Other surgical procedures as the cause of abnormal reaction of the patient, or of later complication, without mention of misadventure at the time of the procedure; R29.810 Facial weakness; Z85.028 Personal history of other malignant neoplasm of stomach; Z82.49 Family history of ischemic heart disease and other diseases of the circulatory system; Z85.51 Personal history of malignant neoplasm of bladder; Z87.891 Personal history of nicotine dependence; Z79.82 Long term (current) use of aspirin; Z79.890 Hormone replacement therapy; Z79.899 Other long term (current) drug therapy
CPT/HCPCS: 88304; 88311; 35301; 36415; 71046; 80048; 82962; 85025; 85027; 85610; 85730; 93005; 95938; 95941; 95955

== ENCOUNTER 2024-10-15 17:15 | Inpatient (IN) | payer OTHER, SELFPAY ==
[2024-10-15] VITALS (26 sets, daily range): BP systolic 82–119; BP diastolic 47–87; BMI 25.2
[2024-10-15 14:38] LABS: ALT (SGPT) 18 U/L (0-35); AST (SGOT) 38 U/L (14-36); Albumin 4.1 g/dl (3.5-5.0); Alkaline Phosphatase 80 U/L (38-126); Blood Urea Nitrogen 40 mg/dl (7-17); Calcium 9.5 mg/dl (8.4-10.2); Carbon Dioxide 20 mmol/L (22-30); Chloride 106 mmol/L (98-107); Glucose 154 mg/dl (70-99); Hematocrit 38.7 % (37.0-47.0); Hemoglobin 12.9 g/dL (12.0-16.0); Mean Corp Hgb Conc. 33.3 g/dL (33.0-37.0); Mean Platelet Volume 10.5 fL (7.4-10.4); Platelet Count 131 10^3/uL (130-400); Potassium 4.1 mmol/L (3.5-5.1); Red Blood Cell Count 4.03 10^6/uL (4.20-5.40); Red Cell Dist. Width 13.5 % (11.5-14.5); Sodium 142 mmol/L (135-145); Total Bilirubin 1.5 mg/dl (0.2-1.3); Total Protein 6.3 g/dl (6.3-8.2); White Blood Cell Count 27.9 10^3/uL (4.8-10.8); eGFR 19.31
[2024-10-15 15:34] LABS: Absolute Neutrophils -Man Diff 25.3 10^3/uL (1.4-6.5); Band Neutrophils 22 % (0-3); Lymphocytes 1 % (20-51); Metamyelocytes 3 % (-); Monocytes 5 % (2-9); Normal RBC Morphology Yes; Platelets Checked Yes; Segmented Neutrophils 69 % (42-75)
[2024-10-15 15:35] LABS: Total Cells Counted 100
--- NOTE | 2024-10-15 15:38 | ED.GENMED ---
History of Present Illness
<REJI Lugo - Last Filed: 10/16/24 16:12>
General
Chief Complaint: Abdominal Symptoms
Source: patient
Exam Limitations: none
Time Seen by Provider: 10/15/24 14:06
Nursing documentation reviewed up to this point in time: agreed with
History of Present Illness
History of Present Illness:
Patient is a 83-year-old female with past med history of hypertension hyperlipidemia MR carotid stenosis with right carotid enterectomy August 28 who presents to the ER for evaluation. Daughter at bedside reports patient's has COVID . the
patient started with sneezing 2 days ago and tested positive today. She does report however the patient apparently woke up vomiting in her sleep and has had several episodes of vomiting and diarrhea. She reports patient does have some mild
dementia seemed a little more confused than normal.
Pt arrives awake alert mildly confused has not complaints now. Confused on why she is here.
Past History
<REJI Lugo - Last Filed: 10/16/24 16:12>
Past History
ED Past Medical History: Cancer (Gallbladder CA), HTN and Other (Hyperthyroid)
ED Past Surgical History: Cholecystectomy, Gynecological (Hysterectomy) and Urological (Bladder tumor with surgery)
Social History
Tobacco: Former smoker
Alcohol: None
Personal:
Living: with family
Review of Systems
<REJI Lugo - Last Filed: 10/16/24 16:12>
Review of Systems
Allergies reviewed?: Yes
Other source history: family
All Other Systems: ROS reviewed and negative except as documented in HPI and ROS
Constitutional: Reports no symptoms; Denies fever
Respiratory: Reports no symptoms
Cardiac: Reports no symptoms
ABD/GI: Reports nausea and vomiting
: Reports no symptoms
Musculoskeletal: Reports no symptoms
Skin: Reports no symptoms
Neurological: Reports no symptoms
Psychiatric: Reports no symptoms
Phy Exam
<REJI Lugo - Last Filed: 10/16/24 16:12>
General Physical Exam
General Presentation: no apparent distress
General age: appears stated age
General Skin: warm and dry
General Habitus: elderly
General Mental: alert
General Hydration: dry mucous membranes
Cardiovascular Exam
Cardiovascular Exam: regular rate/rhythm, no murmur and normal peripheral pulses
Pulmonary Exam
Pulmonary Exam: lungs clear and no respiratory distress
Neurological Exam
Neurological Exam: alert and oriented x3
Musculoskeletal Exam
Musculoskeletal Exam: full ROM and other (right lateral neck with healing surgical incision(recent carotid enterectomy 08/28/24) )
Skin Exam
Skin Exam: normal color and warm/dry
Psychiatric Exam
Psychiatric Exam: normal mood/affect
Course
<REJI Lugo - Last Filed: 10/16/24 16:12>
Orders/Labs/Results
Orders:
Orders
10/15/24 Lunch
Regular
At Your Request: Limited, Inspector Publications Required
10/15/24 14:18
Complete Blood Count/With Diff Urgent
Comprehensive Metabolic Panel Urgent
Manual Differential Urgent
10/15/24 15:37
UA Reflex to Culture [Urinalysis Reflex To Culture] Urgent
Date Specimen was Collected: 10/16/24
Time Specimen was Collected: 08:43
0.9% Sodium Chloride 1000 ml [Nss] 1,000 ml IV BOLUS
Chest [CR Chest - 2 Views ] Urgent
Comment:
Reason For Exam: elevated wbc
10/15/24 15:53
COVID-19 Antigen Urgent
Source: Nasal Swab
Lactic Acid Q4H
Comment: CANCEL 2nd LACTIC ACID IF 1st LACTIC ACID IS LESS THAN 2
Blood Culture Q30M
CARMITA Source: Blood/Venous
Specimen Description:
Blood Culture Q30M
CARMITA Source: Blood/Venous
Specimen Description:
Influenza A+B Rapid Molecular Urgent
CARMITA Source: Nasal Swab
Specimen Description:
10/15/24 16:24
CefTRIAXone [Rocephin] 1,000 mg IV NOW STA
10/15/24 16:25
Azithromycin 500 mg/250 ml [Zithromax Infusion] 500 mg in 250 ml IV NOW
10/15/24 16:57
Admit/Transfer Patient As Directed
Co-Sign Provider:
Level of Care: Inpatient admission
Assign to:: Telemetry
Physician / Group: alexis bennett
Diagnosis: Severe sepsis with acute organ dysfunction
Reason for Telemetry: Other
Other Reason for Telemetry: Sepsis
Date to Stop Telemetry: 10/17/24
Time to Stop Telemetry: 11:00
Reason for Hospitalization: Severe sepsis with acute organ dysfunction
Expected length of stay greater than two midnights?: Yes
ELOS- Estimated Length of Stay in days: 2
I certify the patient meets the requirements for IP care: Yes
PRN Pain Medication Management As Directed
May give lesser potent ordered pain med per pt: Yes
preference::
Protocol:: Medication orders for pain may be administered in a
manner that supports deferring to patient preference
when the pt is:
- Requesting an ordered lesser potent pain medication.
Least to most potent pain medications are defined
as: acetaminophen < NSAID < tramadol < opioids
(morphine, oxycodone, hydromorphone).
- Requesting a lesser dose of the same medication IF
ORDERED.
- Requesting a less intrusive route of administration
if both routes are prescribed by the provider (PO <
IV).
10/15/24 18:00
Dexamethasone Sod Phosphate [Decadron] 6 mg IV Q12H
10/15/24 21:25
Lactic Acid Q4H
Comment: CANCEL 2nd LACTIC ACID IF 1st LACTIC ACID IS LESS THAN 2
10/15/24 21:47
0.9% Sodium Chloride 1000 ml [Nss] 1,000 ml IV 80 mls/hr
Acetaminophen [Tylenol] 650 mg PO Q4HPRN PRN
Bisacodyl [Dulcolax] 10 mg RECTAL [id number] PRN
Docusate W/Senna [Senokot-S] 1 tablet PO BIDPRN PRN
Ipratropium/Albuterol Sulfate [Duoneb] 3 ml INH R Q4HPRN PRN
Ondansetron Injectable [Zofran] 4 mg IV Q6HPRN PRN
Polyethylene Glycol Powder [Miralax] 17 grams PO DAILYPRN PRN
10/15/24 21:47
INFECTIOUS DISEASE CONSULT Routine
Consulting Provider: Abe Peraza
Was physician already notified: Yes
Reason for consult: COVID, pneumonia
Activity As Directed
Activity Level: With Assistance
Vital Signs As Directed
Frequency: Per unit guidelines
Ot Eval And Treat Routine
Pt Eval And Treat Routine
Activity Level: With Assistance
DX Deep Vein Thrombosis Video Routine
10/15/24 22:00
Pravastatin Sodium [Pravachol] 20 mg PO HS
Trazodone [Desyrel] 100 mg PO HS
10/16/24 00:00
Heparin 5,000 units SC Q8
10/16/24 05:35
Complete Blood Count/No Diff IN AM
Comprehensive Metabolic Panel IN AM
10/16/24 06:00
Levothyroxine [Synthroid] 75 mcg PO DAILY @ 0600
10/16/24 08:00
Aspirin Chewable [Low Strength Aspirin] 81 mg PO DAILY
Calcium Carbonate/Vitamin D3 [Oscal 500 + D] 500 mg PO DAILY
Cholecalciferol (Vitamin D3) [VITAMIN D3 (cholecalciferol)] 25 mcg PO DAILY
Cyanocobalamin [Vitamin B-12] 1,000 mcg PO DAILY
FOLic ACID [Folvite] 1 mg PO DAILY
Rivastigmine [Exelon Patch] 4.6 mg TRANSDERM DAILY
10/16/24 16:00
Azithromycin 500 mg/250 ml [Zithromax Infusion] 500 mg in 250 ml IV Q24H
CefTRIAXone [Rocephin] 1,000 mg IV Q24H
10/17/24 11:00
DC Protocol for Telemetry ONCE
Abnormal Lab Results
10/15/24 10/15/24
14:18 15:53
WBC 27.9 H 10^3/uL
(4.8-10.8)
RBC 4.03 L 10^6/uL
(4.20-5.40)
MCH 32.0 H pg
(27.0-31.0)
MPV 10.5 H fL
(7.4-10.4)
Abs Neuts (Manual) 25.3 H 10^3/uL
(1.4-6.5)
Band Neutrophils 22 H %
(0-3)
Lymphocytes (Manual) 1 L %
(20-51)
Carbon Dioxide 20 L mmol/L
(22-30)
BUN 40 H mg/dl
(7-17)
Creatinine 2.4 H mg/dL
(0.6-1.0)
Glucose 154 H mg/dl
(70-99)
Lactic Acid 2.7 H mmol/L
(0.7-2.0)
Total Bilirubin 1.5 H mg/dl
(0.2-1.3)
AST 38 H U/L
(14-36)
SARS-CoV-2 Antigen Positive A
(Negative)
10/15/24 14:18
10/15/24 14:18
Vital Signs
Initial and Last Documented VS:
Initial Vital Signs
Pulse Resp Pulse Ox
75 21 95
10/15/24 14:03 10/15/24 14:03 10/15/24 14:03
Last Documented Vital Signs
Temp Pulse Resp BP Pulse Ox
97.9 F 67 16 115/53 96
10/16/24 11:43 10/16/24 11:43 10/16/24 11:43 10/16/24 11:43 10/16/24 11:43
[employer] Nurse consulted with Physician
[employer] Nurse consulted with physician?: Yes
Name of Physician Consulted: marilyn
<Jitendra Early MD - Last Filed: 10/15/24 15:57>
Orders/Labs/Results
Orders:
Orders
10/15/24 Lunch
Regular
At Your Request: Limited, Inspector Publications Required
10/15/24 14:18
Complete Blood Count/With Diff Urgent
Comprehensive Metabolic Panel Urgent
Manual Differential Urgent
10/15/24 15:37
UA Reflex to Culture [Urinalysis Reflex To Culture] Urgent
Date Specimen was Collected: 10/16/24
Time Specimen was Collected: 08:43
0.9% Sodium Chloride 1000 ml [Nss] 1,000 ml IV BOLUS
Chest [CR Chest - 2 Views ] Urgent
Comment:
Reason For Exam: elevated wbc
10/15/24 15:53
COVID-19 Antigen Urgent
Source: Nasal Swab
Lactic Acid Q4H
Comment: CANCEL 2nd LACTIC ACID IF 1st LACTIC ACID IS LESS THAN 2
Blood Culture Q30M
CARMITA Source: Blood/Venous
Specimen Description:
Blood Culture Q30M
CARMITA Source: Blood/Venous
Specimen Description:
Influenza A+B Rapid Molecular Urgent
CARMITA Source: Nasal Swab
Specimen Description:
10/15/24 16:24
CefTRIAXone [Rocephin] 1,000 mg IV NOW STA
10/15/24 16:25
Azithromycin 500 mg/250 ml [Zithromax Infusion] 500 mg in 250 ml IV NOW
10/15/24 16:57
Admit/Transfer Patient As Directed
Co-Sign Provider:
Level of Care: Inpatient admission
Assign to:: Telemetry
Physician / Group: alexis bennett
Diagnosis: Severe sepsis with acute organ dysfunction
Reason for Telemetry: Other
Other Reason for Telemetry: Sepsis
Date to Stop Telemetry: 10/17/24
Time to Stop Telemetry: 11:00
Reason for Hospitalization: Severe sepsis with acute organ dysfunction
Expected length of stay greater than two midnights?: Yes
ELOS- Estimated Length of Stay in days: 2
I certify the patient meets the requirements for IP care: Yes
PRN Pain Medication Management As Directed
May give lesser potent ordered pain med per pt: Yes
preference::
Protocol:: Medication orders for pain may be administered in a
manner that supports deferring to patient preference
when the pt is:
- Requesting an ordered lesser potent pain medication.
Least to most potent pain medications are defined
as: acetaminophen < NSAID < tramadol < opioids
(morphine, oxycodone, hydromorphone).
- Requesting a lesser dose of the same medication IF
ORDERED.
- Requesting a less intrusive route of administration
if both routes are prescribed by the provider (PO <
IV).
10/15/24 18:00
Dexamethasone Sod Phosphate [Decadron] 6 mg IV Q12H
10/15/24 21:25
Lactic Acid Q4H
Comment: CANCEL 2nd LACTIC ACID IF 1st LACTIC ACID IS LESS THAN 2
10/15/24 21:47
0.9% Sodium Chloride 1000 ml [Nss] 1,000 ml IV 80 mls/hr
Acetaminophen [Tylenol] 650 mg PO Q4HPRN PRN
Bisacodyl [Dulcolax] 10 mg RECTAL [id number] PRN
Docusate W/Senna [Senokot-S] 1 tablet PO BIDPRN PRN
Ipratropium/Albuterol Sulfate [Duoneb] 3 ml INH R Q4HPRN PRN
Ondansetron Injectable [Zofran] 4 mg IV Q6HPRN PRN
Polyethylene Glycol Powder [Miralax] 17 grams PO DAILYPRN PRN
10/15/24 21:47
INFECTIOUS DISEASE CONSULT Routine
Consulting Provider: Abe Peraza
Was physician already notified: Yes
Reason for consult: COVID, pneumonia
Activity As Directed
Activity Level: With Assistance
Vital Signs As Directed
Frequency: Per unit guidelines
Ot Eval And Treat Routine
Pt Eval And Treat Routine
Activity Level: With Assistance
DX Deep Vein Thrombosis Video Routine
10/15/24 22:00
Pravastatin Sodium [Pravachol] 20 mg PO HS
Trazodone [Desyrel] 100 mg PO HS
10/16/24 00:00
Heparin 5,000 units SC Q8
10/16/24 05:35
Complete Blood Count/No Diff IN AM
Comprehensive Metabolic Panel IN AM
10/16/24 06:00
Levothyroxine [Synthroid] 75 mcg PO DAILY @ 0600
10/16/24 08:00
Aspirin Chewable [Low Strength Aspirin] 81 mg PO DAILY
Calcium Carbonate/Vitamin D3 [Oscal 500 + D] 500 mg PO DAILY
Cholecalciferol (Vitamin D3) [VITAMIN D3 (cholecalciferol)] 25 mcg PO DAILY
Cyanocobalamin [Vitamin B-12] 1,000 mcg PO DAILY
FOLic ACID [Folvite] 1 mg PO DAILY
Rivastigmine [Exelon Patch] 4.6 mg TRANSDERM DAILY
10/16/24 16:00
Azithromycin 500 mg/250 ml [Zithromax Infusion] 500 mg in 250 ml IV Q24H
CefTRIAXone [Rocephin] 1,000 mg IV Q24H
10/17/24 11:00
DC Protocol for Telemetry ONCE
Abnormal Lab Results
10/15/24 10/15/24
14:18 15:53
WBC 27.9 H 10^3/uL
(4.8-10.8)
RBC 4.03 L 10^6/uL
(4.20-5.40)
MCH 32.0 H pg
(27.0-31.0)
MPV 10.5 H fL
(7.4-10.4)
Abs Neuts (Manual) 25.3 H 10^3/uL
(1.4-6.5)
Band Neutrophils 22 H %
(0-3)
Lymphocytes (Manual) 1 L %
(20-51)
Carbon Dioxide 20 L mmol/L
(22-30)
BUN 40 H mg/dl
(7-17)
Creatinine 2.4 H mg/dL
(0.6-1.0)
Glucose 154 H mg/dl
(70-99)
Lactic Acid 2.7 H mmol/L
(0.7-2.0)
Total Bilirubin 1.5 H mg/dl
(0.2-1.3)
AST 38 H U/L
(14-36)
SARS-CoV-2 Antigen Positive A
(Negative)
10/15/24 14:18
10/15/24 14:18
Vital Signs
Initial and Last Documented VS:
Initial Vital Signs
Pulse Resp Pulse Ox
75 21 95
10/15/24 14:03 10/15/24 14:03 10/15/24 14:03
Last Documented Vital Signs
Temp Pulse Resp BP Pulse Ox
97.9 F 67 16 115/53 96
10/16/24 11:43 10/16/24 11:43 10/16/24 11:43 10/16/24 11:43 10/16/24 11:43
<REJI Lugo - Last Filed: 10/16/24 16:12>
MDM/Problems Addressed
MDM/Problems Addressed:
Patient is an 83-year-old female who was COVID-positive presents with several days of sneezing etc. however today was vomiting in her sleep and also may have several episodes of diarrhea. Patient presents afebrile however white count is elevated at
27,000 patient is dehydrated with elevated BUN/creatinine. Patient is not hypoxic however chest x-ray does shows bilateral opacities antibiotics ordered for pneumonia.
With elevated white count and bandemia along with pneumonia, dehydration will admit.
<REJI Lugo - Last Filed: 10/16/24 16:12>
*Radiology
Radiology exam reviewed: radiology read reviewed
*Pulse Oximetry
Patient hypoxic: no
*EKG
Interpreted by ED Provider?: Yes
Heart Rate: 69
Rate: normal
Rhythm: sinus
Ischemia: non-specific ST changes
*Critical Care Note
Total Time (30-74mins, 75-104mins- exclusive of procedures): Not Applicable
ED Attending Note
<REJI Lugo - Last Filed: 10/16/24 16:12>
-
Portions of this chart may have been created with voice recognition software.� Occasional wrong word or��sound alike� substitutions may have occurred due to the inherent limitations of voice recognition software.
<Jitendra Early MD - Last Filed: 10/15/24 15:57>
ED Attending Note
Patient seen and examined by attending physician: Yes
I performed the substantive portion of visit, reviewed & personally made and approve the management plan that is documented in note by myself or LEONIDAS.: Yes
ED Attending Note:
83-year-old female brought in for change in mental status weakness. Started this morning. Patient's diagnosed with COVID days ago. COVID-positive at home earlier today. Daughter notes patient does appear better at this time and is more
alert. Patient has no specific complaints
GENERAL: Alert and oriented in no apparent distress. Elderly and frail
EYE: Orbits normal.
NECK: Supple, no significant adenopathy. Well-healing scar to the right neck
ENT: Pharynx without erythema
CARDIAC: Regular rate and rhythm without any obvious murmurs.
LUNGS: Clear breath sounds,normal
ABDOMEN: Soft, without focal tenderness or distention
NEUROLOGICAL: Alert and oriented , grossly non-focal
SKIN: Warm and dry, no rash or lesion, no discoloration, skin intact.
MUSCULOSKELETAL: No edema,no deformity.Good color
PSYCH: Normal and appropriate interaction.
Impression COVID/prerenal azotemia/dehydration. Significant white count with bandemia. Looking for secondary bacterial infection including urine and chest. Will require admission. To consider antibiotics for bandemia and high white count but
will await urine x-ray first
Discharge Plan
Departure
Patient Disposition: Admit
Date of Disposition: 10/15/24
Time of Disposition: 16:29
Admit to: Med/Surg
Admit to doctor: hospitalist
Presentation/result/management discussed w/ accepting MD/DO: Hospitalist
Patient with high blood pressure during this ER visit?: No
Condition: Fair
Covid-19: Confirmed COVID-19
Discharge Problem:
COVID-19, bilateral pneumonia, Acute kidney insufficiency
Interventions
Interventions:
*Risk Screen - Suicide Last Done: 10/15/24 14:12
*General Assessment Last Done: 10/15/24 19:18
*Neglect/Abuse Screening Last Done: 10/15/24 14:12
*ED- Fall Risk Assessment Last Done: 10/15/24 19:18
*ED COVID-19 Vaccine History Last Done: 10/15/24 14:12
*Nursing Disposition Last Done: 10/15/24 21:38
JE-Gecngh-Lmxaiflisz Assessment Last Done: 10/15/24 14:33
Discharge Date and Time
Discharge Date/Time: 10/15/24 21:48
[2024-10-15] MEDS: NSS 1000 IV ×2 (15:53→23:16)
[2024-10-15 16:20] LABS: Lactic Acid 2.7 mmol/L (0.7-2.0)
[2024-10-15 16:47] LABS: COVID-19 Antigen Positive (Negative)
[2024-10-15] MEDS: ZITHROMAX INFUSION 250 IV (16:48)
[2024-10-15] MEDS: ROCEPHIN 1000 MG IV (16:48)
--- NOTE | 2024-10-15 17:08 | HPS.HSE ---
Family Physician
-
Family Physician: Fritz Akins
Chief Complaint
-
Confusion
History of Present Illness
Patient is a pleasant 83 years old with a history of hypertension, hyperlipidemia, hypothyroidism, carotid stenosis status post right carotid artery endarterectomy, who came to the ER combined with daughter at bedside for change in status,
was diagnosed with COVID on Tuesday and patient started sneezing 2 days ago and tested positive today.
Daughter was concerning that patient was confused, she has underlying mild dementia but seems confused more than normal.
Patient also has several episodes of vomiting and diarrhea.
In the ER initial workup shows evidence of sepsis with elevated white count and also acute renal failure.
Chest x-ray done in the ER shows There are new patchy bibasilar airspace opacities concerning for pneumonia.
Patient started on Rocephin and Zithromax and will be admitted under hospitalist service.
Medical History
Past Medical History
Past Medical History: Reports HTN and Hypothyroidism
Additional Past Medical History:
Gallbladder cancer
Past Surgical History: Reports Other (Cholecystectomy, Gynecological (Hysterectomy) and Urological (Bladder tumor with surgery)-carotid endarterectomy)
Social History
Unable to obtain full social history at this time due to: Dementia
Tobacco: Former Smoker
Alcohol: None
Drug: None
Personal:
Living: With Family
Family History
Family History: Not pertinent
Allergies / Home Medications
Allergies reflects when Allergies were last updated in [facility].
Home Medications with original date entered in [facility]
Allergy/Medication List:
Allergies
Allergy/AdvReac Type Severity Reaction Status Date / Time
No Known Allergies Allergy Verified 08/28/24 06:36
Home Medications
acetaminophen 500 mg tablet 1,000 mg PO BID Pain 08/20/24
amlodipine 10 mg tablet 10 mg PO DAILY Blood Pressure 08/20/24
calcium 600 mg (as carbonate)-vit D3 20 mcg (800 unit) chewable tablet (Caltrate plus D) 1 tab PO DAILY Supplement 08/20/24
cholecalciferol (vitamin D3) 25 mcg (1,000 unit) capsule (Vitamin D3) 25 mcg PO DAILY Supplement 08/20/24
folic acid 1 mg tablet 1 mg PO DAILY Supplement 08/20/24
lisinopril 10 mg tablet 10 mg PO DAILY Blood Pressure 08/20/24
pravastatin 20 mg tablet 20 mg PO HS High Cholesterol 08/20/24
trazodone 50 mg tablet 100 mg PO HS Sleep 08/20/24
rivastigmine 4.6 mg/24 hour transdermal patch 1 patch transdermal DAILY 08/28/24
aspirin 81 mg chewable tablet 81 mg PO DAILY 10/15/24
cyanocobalamin (vitamin B-12) 1,000 mcg tablet 1,000 mcg PO DAILY 10/15/24
levothyroxine 75 mcg tablet 75 mcg PO DAILY 10/15/24
Review of Systems
-
History Source: Family
A 12 point ROS was completed and negative except as noted: Yes
Constitutional: Reports Fatigue; Denies Fever, Weight Gain, Weight Loss or Sleep Disturbance
EENT: Denies Tearing, Sore Throat, Mouth Pain, Mouth Swelling or Runny Nose
Respiratory: Denies Cough, Hemoptysis or Trouble Breathing
Cardiac: Denies Chest Pain, Diaphoresis, Palpitations or Syncope
Abdomen/GI: Reports Vomiting and Diarrhea; Denies Abdominal Pain, Nausea, Constipated, Bloody Stools or Black Stools
: Denies Dysuria, Frequency, Flank Pain, Incontinence, Difficulty Voiding, Urgency, Bleeding or Dark Urine
Musculoskeletal: Denies Joint Pain, Joint Swelling, Muscle Pain, Muscle Stiffness or Edema
Skin: Denies Itching or Rash
Neurological: Denies Dizzy, Headache, Weakness or Numbness
Endocrine: Denies Polyuria, Polydipsia or Temp Intolerance
Hematologic/Lymphatic: Denies Bleeding, Swollen Glands or Bruising
Psych: Reports Calm; Denies Depression, Anxiety or Panic Disorder
Physical Exam
Vital Signs
Vital Signs
Temp Pulse Resp BP Pulse Ox
97.6 F 78 19 96/51 94
10/15/24 14:12 10/15/24 16:00 10/15/24 16:00 10/15/24 16:47 10/15/24 16:00
Physical Exam
General: Well Developed, Well Nourished, No Apparent Distress, Comfortable and Good Appetite; No Pain, Chills or Sweats
HEENT: NormoCephalic, Moist mucous membranes, Atraumatic, Good Dentition, PERRLA, Nose Appears Normal and Ears Appear Normal
Respiratory: Rales and Rhonchi
Cardiac: S1/S2 and Regular Rhythm
Breast: Deferred by me
GI: Soft, Non Tender, Non Distended and Normal Bowel Sounds
Genito-urinary: Deferred by me
Musculoskeletal: No Clubbing, No Cyanosis and No Edema
Skin: Warm; No Rash, Jaundice, Ulcers, Lesions or Decubitus Ulcers
Neuro: Awake, Alert, No Motor Deficits, Nonfocal/grossly intact and Cranial Nerves Intact
Hematologic/Lymphatic: No Lymphadenopathy
Psych: Calm and Confused
Laboratory Results
-
10/15/24 14:18
10/15/24 14:18
Laboratory Results
Lactic Acid 2.7 mmol/L (0.7-2.0) H 10/15/24 15:53
Total Bilirubin 1.5 mg/dl (0.2-1.3) H 10/15/24 14:18
AST 38 U/L (14-36) H 10/15/24 14:18
ALT 18 U/L (0-35) 10/15/24 14:18
Alkaline Phosphatase 80 U/L (38-126) 10/15/24 14:18
Data Reviewed
-
Diagnostic Radiology: Report Reviewed by me
CT Scan: Report Reviewed by me
Medical Tests (Nuc Med, Echo, EKG etc): Report Reviewed by me
Lab Data: Labs Reviewed by me
Old Records: Reviewed
Impression/Plan
-
IMPRESSION:
Patient is a pleasant 83 years old with a history of hypertension, hyperlipidemia, hypothyroidism, carotid stenosis status post right carotid artery endarterectomy, who came to the ER combined with daughter at bedside for change in status,
was diagnosed with COVID on Tuesday and patient started sneezing 2 days ago and tested positive for COVID today.
found to have sepsis with elevated white count and acute renal failure.
Chest x-ray done in the ER shows There are new patchy bibasilar airspace opacities concerning for pneumonia.
Assessment/plan:
Severe sepsis with acute organ dysfunction
Patient meets sepsis criteria on admission
Elevated white count to 27.9
Bandemia 22
Source of infection is COVID/bacterial pneumonia
Organ dysfunction in form of acute metabolic encephalopathy/acute renal failure
hypotension and lactic acidosis
Start IV fluid
Start IV antibiotic in form of Rocephin/azithromycin
IV dexamethasone
Blood culture pending
Urine culture pending
Consult infectious disease.
Acute renal failure
IV fluid hydration.
Avoid nephrotoxins.
Hold lisinopril/amlodipine
Acute metabolic encephalopathy
Secondary to sepsis.
Underlying mild dementia.
Continue to monitor
Lactic acidosis
IV fluid hydration, repeat lactic
Hypertension
Currently hypotensive, hold amlodipine and lisinopril
History of hypercholesterolemia
Continue statin
DVT prophylaxis: Heparin
Diet: Regular diet
Family communication: Discussed with daughter at bedside
Total time spent on today's encounter was 75 minutes which included time spent in counseling the patient/family regarding diagnosis and treatment plan as listed above, goals of care, and symptom management. Case was discussed with nursing staff,
specialists, and care coordinators/case management. All labs and imaging personally reviewed by me. Remainder the time spent in detailed review of previous records, lab data, imaging, and other medical provider documentation.
[2024-10-15] MEDS: DECADRON 6 MG IV (18:31)
[2024-10-15 21:44] LABS: Lactic Acid 1.2 mmol/L (0.7-2.0)
[2024-10-15] MEDS: PRAVACHOL PO (23:16)
[2024-10-15] MEDS: HEPARIN SC (23:17)
[2024-10-15 23:31] LABS: Glucose - Point of Care 123 mg/dl (70-99)
[2024-10-16] VITALS (9 sets, daily range): BP systolic 107–172; BP diastolic 48–93; PULSE 67–101; O2SAT 97
[2024-10-16 00:06] LABS: HCO3 21.8 mmol/L (21-28); PCO2 30 mmHg (32-35); PO2 152 mmHg (83-108); pH 7.47 (7.35-7.45)
[2024-10-16 00:09] LABS: Hematocrit 34.6 % (37.0-47.0); Hemoglobin 11.9 g/dL (12.0-16.0); Mean Corp Hgb Conc. 34.4 g/dL (33.0-37.0); Mean Corpuscular Hgb 32.5 pg (27.0-31.0); Mean Corpuscular Volume 94.5 fL (81.0-99.0); Mean Platelet Volume 10.1 fL (7.4-10.4); Platelet Count 123 10^3/uL (130-400); Red Blood Cell Count 3.66 10^6/uL (4.20-5.40); Red Cell Dist. Width 13.5 % (11.5-14.5); White Blood Cell Count 23.6 10^3/uL (4.8-10.8)
[2024-10-16 00:15] LABS: INR 1.29; PT 16.4 Sec (11.4-14.6)
[2024-10-16 00:16] LABS: APTT 35.4 Sec (23.4-35.0)
--- NOTE | 2024-10-16 00:18 | PTCARENOTE ---
Patient arrived to the floor aprox 2200 from ER via Stretcher with DX of COVID and Sepsis. She was arousable once in bed, she ambulated to Bathroom with nurse, steady gait, able to answer questions appropriately as to where she was month date and
year as well as name and . Monitor placed on Patient, VSS, Nurse re entered patients room aprox 2300 to complete admission. patient was unresponsive, eyes fixed pupils sluggish only responded to deep pain, MANAGER [employer] arrived to room advised to call
Rapid Response and Stroke alert due to change in MS.
--- NOTE | 2024-10-16 00:28 | W.PN.UPDATE ---
Addendum entered and electronically signed by REJI Villar 10/16/24 06:09:
Called and spoke with patient's daughter, Mariluz to update with overnight events. Reviewed plan of care. Daughter appreciative of call. Of note, daughter stated that patient's also has COVID.
Original Note:
Update Note
Progress Note Update
~ 23:30 Received TT from RN, patient with change of mental status. Per RN, patient was able to walk to the bathroom earlier (around 2200) when she arrived on the unit. Patient was AOx3 and is now unresponsive.
Evaluated patient, patient is only responsive to pain, does awake and fall back to sleep, pupils are sluggish, unable to do NIH at this time. VS: BP 101/50, HR 74, Resp 19, Pulsox 94% 2L, afebrile, temp 97.0. Accucheck 123.
EKG showed NSR incomplete right bundle branch block, HR 69.
Rapid response called. Stroke alert called. RN spoke with Neurologist, Dr. Wilson for SBAR. Reviewed with Neurology
Per Neurology Orders placed for: CBC, CMP, PTT, PT/INR, ABG, UA, Orthostatic VS,
CT Head showed No acute intracranial abnormality. No acute territorial infarct, hemorrhage, mass effect, or midline shift. Mild microangiopathy and volume loss.
Ordered CTA Head/Neck unable to be done due to elevated creatinine.
Ordered MRA Head/Neck w/o Gadolinium due to elevated creatinine, to rule out basilar artery thrombosis
Patient taken to CT scan, patient is more responsive. She is answering questions,
~1 am Repeat assessment completed. Arousable to verbal stimuli. No facial droop noted, patient able to complete some items. No drift b/l upper and lower extremities. + Resistance to gravity. Opens eyes on request. Protecting face when arm drop test
done. No asymmetry noted on exam. Patient is very sleepy.
~2 am Decision made by Neurology and Radiology to proceed with CTA Head/Neck, aware of elevated creatinine.
Preliminary read: CTA Head/Neck with IV contrast - Results finalized @ 3:15 and faxed
CTA Neck
No new occlusion or severe narrowing. Compared to prior exam, there is resolution of the moderate focal narrowing of the origin of the right internal carotid artery with persistent moderate focal narrowing just distally at the side of prior
dissection. The carotid arteries were other calles patent.
The bilateral vertebral arteries are widely patent
Moderate centrilobular emphysema. Moderate atherosclerotic calcifications of the aortic arch. Prior thyroidectomy.
CTA Head
No occlusion or significant stenosis.
Similar appearing 5 mm aneurysm arising off the terminal right ICA, 3 mm aneurysm arising off of the terminal left ICA and 3 mm aneurysm arising off of the left A1 segment.
Report sent to Neurology
~[address] scan, patient wide awake, answering all questions, moves all limbs w/o restrictions, drank water. Patient states she does not remember anything that happened the last three hours.
[2024-10-16] MEDS: PRAVACHOL PO (00:41)
[2024-10-16 00:54] LABS: ALT (SGPT) 16 U/L (0-35); AST (SGOT) 36 U/L (14-36); Albumin 3.3 g/dl (3.5-5.0); Alkaline Phosphatase 85 U/L (38-126); Blood Urea Nitrogen 46 mg/dl (7-17); Calcium 8.6 mg/dl (8.4-10.2); Carbon Dioxide 19 mmol/L (22-30); Chloride 111 mmol/L (98-107); Estimated Creatinine Clearance 21 ml/min; Glucose 130 mg/dl (70-99); Potassium 3.9 mmol/L (3.5-5.1); Sodium 143 mmol/L (135-145); Total Bilirubin 0.9 mg/dl (0.2-1.3); Total Protein 5.7 g/dl (6.3-8.2); eGFR 29.21
[2024-10-16] MEDS: HEPARIN SC (01:18)
[2024-10-16] MEDS: SYNTHROID 75 MCG PO (05:17)
[2024-10-16] MEDS: DECADRON 6 MG IV ×2 (05:17→17:08)
--- NOTE | 2024-10-16 07:07 | CON.NEURO ---
Consultation
Order
Date of Consultation: 10/16/24
Requesting Provider: Tylor Gallardo MD
Reason for Consult: Unresponsiveness
Neurology Consultation Note.
HPI: This is an 83-year-old woman who presented to [facility] on 10/15/2024 with emesis, diarrhea and worsening of baseline encephalopathy.
ER VS: 97/48-82/50, 75, afebrile, 95 on 2 L of oxygen.
CXR-patchy bibasilar airspace opacities concerning for pneumonia.
EKG: NSR, QTc Int : 458 ms
PDMP: No recently prescribed medication
Labs: WBCs�27.9, platelets�131�119, PT�16.7, PTT�35.4, glucose�154, creatinine�2.4 -1.7 normal sodium, bilirubin�1.5, SARS-CoV-2�positive..
Stroke alert was activated at 11:36 PM on 10/15/2024 due to unresponsiveness. Last time seen verbal and ambulatory at 22:00 on 10/15/2024. No TNK was provided due to clinical improvement.
The patient does not recall the above events. No history of seizures or epilepsy.
MAR: No administered MACHINE FOLDER suppressants.
CT head wo contrast�no acute abnormalities, mild atrophy
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
PMH: Mild dementia, R marginal mandibular nerve palsy, gastric sarcoma, bladder CA, T11-T12 compression fracture, HTN, DLP, anemia, hypothyroidism, GERD, osteoporosis, insomnia,
PSH: R CEA(08/28/2024), thyroidectomy, appendectomy, WALT/BSO, reduction mammoplasty, sacrocolpopexy, cholecystectomy, appendectomy,
SH: , resident at [facility], former smoker, does not drive
FH: Not contributory to current presentation
All:NKDA
ROS: Constitutional: Negative. Negative for chills, fever and unexpected weight change.
HENT: Positive for hearing impairment
Eyes: Negative. Negative for photophobia, pain and visual disturbance.
Respiratory: Negative for cough, choking and shortness of breath.
Cardiovascular: Negative for chest pain, palpitations and leg swelling.
Gastrointestinal: Positive for recent emesis, diarrhea
Endocrine: Negative. Negative for cold intolerance.
Genitourinary: Negative for dysuria, flank pain and urgency.
Musculoskeletal: Negative for back pain, gait problem, neck pain and neck stiffness.
Skin: Negative for rash.
Allergic/Immunologic: Negative. Negative for immunocompromised state.
Neurological: Positive for chronic cognitive symptoms
General: Well developed. In no acute distress.
Cardio: Regular rate and rhythm without murmur. Extremities are without cyanosis or edema.
Neuro:
Mental Status: Alert, oriented to person, place, year, month. Impaired attention and comprehension. Follows simple requests. Nonfluent. No hemineglect.
Cranial Nerves: Pupils are equally round and reactive to light. EOMs full. Blinks to threat bilaterally no ptosis. No nystagmus. V1-V3 intact to light touch and pinprick bilaterally, symmetric. Face symmetric. Poor hearing AU. The palate
elevated well. SCMs and traps 5/5. Tongue midline. No dysarthria.
Motor: Normal bulk and tone. No pronator or arm drift. Strength 5/5 throughout. No clonus.
Reflexes: Positive for grasp bilaterally
Sensory: Stated that patient at the ankles was intact
Coordination: No dysmetria or tremor.
Gait: deferred
Assessment and Plan:
I. Transient unresponsiveness. Differential diagnosis includes vascular vs toxic vs epileptic etiologies.
II. History of right REX stenosis status post right CEA (08/2024)
III. 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
IV. Encephalopathy (neurodegenerative, metabolic, vascular, infectious)
V. 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
. History of sedative, hypnotic or anxiolytic dependence
-Continue Telemetry monitoring
-Avoid cerebral hypoperfusion and hypoxia
-Please obtain brain MRI without nicki to rule out acute infarcts
-Please check urine tox, LDL
- Aspirin 81 mg once a day
- Neurosurgery consult (can be done as OP)
- The case was discussed with patient's daughter
I personally reviewed all radiology and labs along with past medical records pertinent to current medical problems. Total time spent in patient care is 60 minutes.
Thank you for allowing us to participate in the care of this patient. We will continue to follow. Please do not hesitate to contact us with any questions or concerns.
Subjective/Objective
Subjective Data
Date of Service: October 16, 2024
Objective Data
Vital Signs
Temp Pulse Resp BP Pulse Ox
36.4 C 79 18 113/60 98
10/16/24 03:14 10/16/24 03:14 10/16/24 03:14 10/16/24 03:14 10/16/24 03:14
PT 16.4 Sec (11.4-14.6) H 10/15/24 23:55
INR 1.29 10/15/24 23:55
APTT 35.4 Sec (23.4-35.0) H 10/15/24 23:55
Sodium 143 mmol/L (135-145) 10/15/24 23:55
Potassium 3.9 mmol/L (3.5-5.1) 10/15/24 23:55
BUN 46 mg/dl (7-17) H 10/15/24 23:55
Glucose 130 mg/dl (70-99) H 10/15/24 23:55
Calcium 8.6 mg/dl (8.4-10.2) 10/15/24 23:55
Patient Allergies
No Known Allergies Allergy (Verified 08/28/24 06:36)
Medications
-
Active Medications
Generic Name Dose Route Start Last Admin
Trade Name Freq PRN Reason Stop Dose Admin
Acetaminophen 650 mg 10/15/24 21:47
Acetaminophen 325 Mg Tablet PO 11/12/24 21:46
Q4HPRN PRN
mild pain/MILAN/temp> 100.4F
Albuterol/Ipratropium 3 ml 10/15/24 21:47
Ipratropium 0.5/Albuterol 3 Mg (3 Ml Ampul) INH
R Q4HPRN PRN
shortness of breath
Protocol
Aspirin 81 mg 10/16/24 08:00
Aspirin 81 Mg Chewable Tablet PO 11/13/24 07:59
DAILY SUMEET
Bisacodyl 10 mg 10/15/24 21:47
Bisacodyl 10 Mg Rectal Suppository RECTAL 11/12/24 21:46
[id number] PRN
constipation
Calcium/Vitamin D 500 mg 10/16/24 08:00
Calcium Carbonate 500 Mg/Vitamin D 5 Mcg (200 Units) Tablet PO 11/13/24 07:59
DAILY SUMEET
Ceftriaxone Sodium 1,000 mg 10/16/24 16:00
Ceftriaxone 1000 Mg / 10 Ml Vial IV
Q24H SUMEET
Cholecalciferol 25 mcg 10/16/24 08:00
Cholecalciferol (Vitamin D3) 25 Mcg Tablet (1,000 Units) PO 11/13/24 07:59
DAILY SUMEET
Cyanocobalamin 1,000 mcg 10/16/24 08:00
Cyanocobalamin 1,000 Mcg Tablet PO 11/13/24 07:59
DAILY SUMEET
Dexamethasone Sodium Phosphate 6 mg 10/15/24 18:00 10/16/24 05:17
Dexamethasone 4 Mg/Ml 1 Ml Vial IV 11/12/24 17:59 6 mg
Q12H SUMEET Administration
Folic Acid 1 mg 10/16/24 08:00
Folic Acid 1 Mg Tablet PO 11/13/24 07:59
DAILY SUMEET
Heparin Sodium 5,000 units 10/16/24 00:00 10/16/24 01:18
Heparin 5,000 Units/Ml 1 Ml Vial SC 11/13/24 00:00 Not Given
Q8 SUMEET
Azithromycin 500 mg in 250 mls @ 250 mls/hr 10/16/24 16:00
Zithromax Infusion IV
Q24H SUMEET
Sodium Chloride 1,000 mls @ 80 mls/hr 10/15/24 21:47 10/15/24 23:16
Nss IV 1,000 mls
.[id number] SUMEET Administration
Levothyroxine Sodium 75 mcg 10/16/24 06:00 10/16/24 05:17
Levothyroxine 75 Mcg Tablet PO 11/13/24 05:59 75 mcg
DAILY @ 0600 SUMEET Administration
Ondansetron HCl 4 mg 10/15/24 21:47
Ondansetron 4 Mg/2 Ml Vial IV 11/12/24 21:46
Q6HPRN PRN
nausea and vomiting
Polyethylene Glycol 17 grams 10/15/24 21:47
Polyethylene Glycol Powder 17 Grams Packet PO 11/12/24 21:46
DAILYPRN PRN
constipation
Pravastatin Sodium 20 mg 10/15/24 22:00 10/16/24 00:41
Pravastatin 20 Mg Tablet PO 11/12/24 21:59 Not Given
HS SUMEET
Rivastigmine 4.6 mg 10/16/24 08:00
Rivastigmine (Exelon) 4.6 Mg Patch TRANSDERM 11/13/24 07:59
DAILY SUMEET
Senna/Docusate Sodium 1 tablet 10/15/24 21:47
Docusate W/Senna (Shikha-Colace) Tablet PO 11/12/24 21:46
BIDPRN PRN
constipation
Sodium Chloride 0 flush 10/15/24 18:00
Sodium Chloride 0.9% (Flush) Syringe IV 11/12/24 17:59
PER PROTOCOL SUMEET
Sterile Water 10 ml 10/16/24 16:00
Sterile Water For Injection 10 Ml Vial IV 11/13/24 15:59
Q24H SUMEET
Trazodone HCl 100 mg 10/15/24 22:00 10/16/24 00:40
Trazodone 50 Mg Tablet PO 11/12/24 21:59 Not Given
HS SUMEET
Home Medications
�Medication �Instructions �Recorded
acetaminophen 500 mg tablet 1,000 mg PO BID Pain 08/20/24
amlodipine 10 mg tablet 10 mg PO DAILY Blood Pressure 08/20/24
calcium 600 mg (as carbonate)-vit 1 tab PO DAILY Supplement 08/20/24
D3 20 mcg (800 unit) chewable
tablet (Caltrate plus D)
cholecalciferol (vitamin D3) 25 25 mcg PO DAILY Supplement 08/20/24
mcg (1,000 unit) capsule (Vitamin
D3)
folic acid 1 mg tablet 1 mg PO DAILY Supplement 08/20/24
lisinopril 10 mg tablet 10 mg PO DAILY Blood Pressure 08/20/24
pravastatin 20 mg tablet 20 mg PO HS High Cholesterol 08/20/24
trazodone 50 mg tablet 100 mg PO HS Sleep 08/20/24
rivastigmine 4.6 mg/24 hour 1 patch transdermal DAILY 08/28/24
transdermal patch
aspirin 81 mg chewable tablet 81 mg PO DAILY 10/15/24
cyanocobalamin (vitamin B-12) 1,000 mcg PO DAILY 10/15/24
1,000 mcg tablet
levothyroxine 75 mcg tablet 75 mcg PO DAILY 10/15/24
Vital Signs and Labs
-
Vital Signs and Labs:
Vital Signs
Temp Pulse Resp BP Pulse Ox
36.4 C 79 18 113/60 98
10/16/24 03:14 10/16/24 03:14 10/16/24 03:14 10/16/24 03:14 10/16/24 03:14
PT 16.4 Sec (11.4-14.6) H 10/15/24 23:55
INR 1.29 10/15/24 23:55
APTT 35.4 Sec (23.4-35.0) H 10/15/24 23:55
Sodium 143 mmol/L (135-145) 10/15/24 23:55
Potassium 3.9 mmol/L (3.5-5.1) 10/15/24 23:55
BUN 46 mg/dl (7-17) H 10/15/24 23:55
Glucose 130 mg/dl (70-99) H 10/15/24 23:55
Calcium 8.6 mg/dl (8.4-10.2) 10/15/24 23:55
Medications
-
Medications:
Generic Name Dose Route Start Last Admin
Trade Name Freq PRN Reason Stop Dose Admin
Acetaminophen 650 mg 10/15/24 21:47
Acetaminophen 325 Mg Tablet PO 11/12/24 21:46
Q4HPRN PRN
mild pain/MILAN/temp> 100.4F
Albuterol/Ipratropium 3 ml 10/15/24 21:47
Ipratropium 0.5/Albuterol 3 Mg (3 Ml Ampul) INH
R Q4HPRN PRN
shortness of breath
Protocol
Aspirin 81 mg 10/16/24 08:00
Aspirin 81 Mg Chewable Tablet PO 11/13/24 07:59
DAILY SUMEET
Bisacodyl 10 mg 10/15/24 21:47
Bisacodyl 10 Mg Rectal Suppository RECTAL 11/12/24 21:46
[id number] PRN
constipation
Calcium/Vitamin D 500 mg 10/16/24 08:00
Calcium Carbonate 500 Mg/Vitamin D 5 Mcg (200 Units) Tablet PO 11/13/24 07:59
DAILY SUMEET
Ceftriaxone Sodium 1,000 mg 10/16/24 16:00
Ceftriaxone 1000 Mg / 10 Ml Vial IV
Q24H SUMEET
Cholecalciferol 25 mcg 10/16/24 08:00
Cholecalciferol (Vitamin D3) 25 Mcg Tablet (1,000 Units) PO 11/13/24 07:59
DAILY SUMEET
Cyanocobalamin 1,000 mcg 10/16/24 08:00
Cyanocobalamin 1,000 Mcg Tablet PO 11/13/24 07:59
DAILY SUMEET
Dexamethasone Sodium Phosphate 6 mg 10/15/24 18:00 10/16/24 05:17
Dexamethasone 4 Mg/Ml 1 Ml Vial IV 11/12/24 17:59 6 mg
Q12H SUMEET Administration
Folic Acid 1 mg 10/16/24 08:00
Folic Acid 1 Mg Tablet PO 11/13/24 07:59
DAILY SUMEET
Heparin Sodium 5,000 units 10/16/24 00:00 10/16/24 01:18
Heparin 5,000 Units/Ml 1 Ml Vial SC 11/13/24 00:00 Not Given
Q8 SUMEET
Azithromycin 500 mg in 250 mls @ 250 mls/hr 10/16/24 16:00
Zithromax Infusion IV
Q24H SUMEET
Sodium Chloride 1,000 mls @ 80 mls/hr 10/15/24 21:47 10/15/24 23:16
Nss IV 1,000 mls
.[id number] SUMEET Administration
Levothyroxine Sodium 75 mcg 10/16/24 06:00 10/16/24 05:17
Levothyroxine 75 Mcg Tablet PO 11/13/24 05:59 75 mcg
DAILY @ 0600 SUMEET Administration
Ondansetron HCl 4 mg 10/15/24 21:47
Ondansetron 4 Mg/2 Ml Vial IV 11/12/24 21:46
Q6HPRN PRN
nausea and vomiting
Polyethylene Glycol 17 grams 10/15/24 21:47
Polyethylene Glycol Powder 17 Grams Packet PO 11/12/24 21:46
DAILYPRN PRN
constipation
Pravastatin Sodium 20 mg 10/15/24 22:00 10/16/24 00:41
Pravastatin 20 Mg Tablet PO 11/12/24 21:59 Not Given
HS SUMEET
Rivastigmine 4.6 mg 10/16/24 08:00
Rivastigmine (Exelon) 4.6 Mg Patch TRANSDERM 11/13/24 07:59
DAILY SUMEET
Senna/Docusate Sodium 1 tablet 10/15/24 21:47
Docusate W/Senna (Shikha-Colace) Tablet PO 11/12/24 21:46
BIDPRN PRN
constipation
Sodium Chloride 0 flush 10/15/24 18:00
Sodium Chloride 0.9% (Flush) Syringe IV 11/12/24 17:59
PER PROTOCOL SUMEET
Sterile Water 10 ml 10/16/24 16:00
Sterile Water For Injection 10 Ml Vial IV 11/13/24 15:59
Q24H SUMEET
Trazodone HCl 100 mg 10/15/24 22:00 10/16/24 00:40
Trazodone 50 Mg Tablet PO 11/12/24 21:59 Not Given
HS SUMEET
Home Medications
-
Home Medications
acetaminophen 500 mg tablet 1,000 mg PO BID Pain 08/20/24
amlodipine 10 mg tablet 10 mg PO DAILY Blood Pressure 08/20/24
calcium 600 mg (as carbonate)-vit D3 20 mcg (800 unit) chewable tablet (Caltrate plus D) 1 tab PO DAILY Supplement 08/20/24
cholecalciferol (vitamin D3) 25 mcg (1,000 unit) capsule (Vitamin D3) 25 mcg PO DAILY Supplement 08/20/24
folic acid 1 mg tablet 1 mg PO DAILY Supplement 08/20/24
lisinopril 10 mg tablet 10 mg PO DAILY Blood Pressure 08/20/24
pravastatin 20 mg tablet 20 mg PO HS High Cholesterol 08/20/24
trazodone 50 mg tablet 100 mg PO HS Sleep 08/20/24
rivastigmine 4.6 mg/24 hour transdermal patch 1 patch transdermal DAILY 08/28/24
aspirin 81 mg chewable tablet 81 mg PO DAILY 10/15/24
cyanocobalamin (vitamin B-12) 1,000 mcg tablet 1,000 mcg PO DAILY 10/15/24
levothyroxine 75 mcg tablet 75 mcg PO DAILY 10/15/24
[2024-10-16 07:09] LABS: Hematocrit 36.1 % (37.0-47.0); Mean Corp Hgb Conc. 33.2 g/dL (33.0-37.0); Mean Corpuscular Hgb 32.3 pg (27.0-31.0); Mean Platelet Volume 10.6 fL (7.4-10.4); Platelet Count 119 10^3/uL (130-400); Red Blood Cell Count 3.72 10^6/uL (4.20-5.40); Red Cell Dist. Width 13.6 % (11.5-14.5); White Blood Cell Count 23.2 10^3/uL (4.8-10.8)
[2024-10-16] MEDS: HEPARIN 5000 UNITS SC ×2 (07:56→16:24)
[2024-10-16] MEDS: VITAMIN B-12 1000 MCG PO (07:56)
[2024-10-16] MEDS: VITAMIN D3 (cholecalciferol) 25 MCG PO (07:56)
[2024-10-16] MEDS: LOW STRENGTH ASPIRIN 81 MG PO (07:56)
[2024-10-16] MEDS: OSCAL 500 + D 500 MG PO (07:56)
[2024-10-16] MEDS: FOLVITE 1 MG PO (07:56)
[2024-10-16] MEDS: EXELON PATCH 4.6 MG TRANSDERM (07:56)
[2024-10-16 09:11] LABS: Urine Albumin 2+ (Neg - Trace); Urine Bilirubin Negative (Negative); Urine Character Cloudy (Clear); Urine Color Yellow; Urine Glucose Negative (Negative); Urine Ketone Negative (Negative); Urine Leukocyte 3+ (Negative); Urine Nitrite Negative (Negative); Urine Occult Blood 4+ (Negative); Urine Specific Gravity 1.015 (<1.030); Urine Urobilinogen Negative (Neg - 1+)
[2024-10-16 09:20] LABS: Urine Bacteria Few (Negative); Urine Squamous Cell 16-20 /LPF (Few); Urine White Cell 50-60 /HPF (0-5)
[2024-10-16 09:21] LABS: Urine Red Blood Cell 0-2 /HPF (0-2)
[2024-10-16 09:39] LABS: ALT (SGPT) 17 U/L (0-35); AST (SGOT) 33 U/L (14-36); Albumin 3.5 g/dl (3.5-5.0); Alkaline Phosphatase 97 U/L (38-126); Blood Urea Nitrogen 46 mg/dl (7-17); Calcium 8.6 mg/dl (8.4-10.2); Carbon Dioxide 17 mmol/L (22-30); Chloride 110 mmol/L (98-107); Estimated Creatinine Clearance 22 ml/min; Glucose 103 mg/dl (70-99); Potassium 3.8 mmol/L (3.5-5.1); Sodium 143 mmol/L (135-145); Total Bilirubin 0.7 mg/dl (0.2-1.3); Total Protein 5.8 g/dl (6.3-8.2); eGFR 31.41
--- NOTE | 2024-10-16 09:57 | CON.ID ---
Consultation
-
Date/Time Consultation Requested: October 15, [id number]
Date/Time Consultation Performed: October 16, 2024 1000
Requesting Provider: Dr. Tylor Gallardo
Performing Provider: Dr. Yadira Jorgensen
Reason for Consultation: COVID, pneumonia
Chief Complaint / Past History
Chief Complaint
Cough, change in mental status
History of Present Illness
83-year-old female with history of Graves' disease, hypertension, carotid artery stenosis status post recent right CEA August 2024 who presented to the hospital on October 15 due to COVID and confusion. Patient reports her started feeling
unwell last week and tested positive for COVID on October 12. On Tuesday, patient started with mild headache, dry cough, fatigue. On Tuesday, daughter noted pt more confused. She was sent to the hospital. White count 27.9. Patient mildly
hypoxic 87% room air. COVID-positive. Chest x-ray shows new bibasilar opacities. She was started on ceftriaxone and azithromycin. Overnight she was minimally responsive. Head CT no acute pathology. This morning mental status returned to
baseline. She denies rhinorrhea/sinus congestion/sore throat. Mild headache. Positive dry cough. Mild shortness of breath. No chest pain. No nausea, vomiting, abdominal pain, or diarrhea. No dysuria, urinary urgency, frequency, or flank
pain. No fever. She states she recently just had her COVID-vaccine at [facility] prior to admission. She is feeling better today.
Past History
Additional Past Medical History:
Hypertension
Graves' disease
Gastric sarcoma status post resection
History of bladder cancer status post excision
Mild to moderate aortic regurgitation
HLD
Carotid artery stenosis s/p RIGHT carotid endarterectomy with patch angioplasty using bovine pericardium (08/28/24)
chronic adhesional pain s/p abdominal surgery,
WALT/BSO
Appendectomy
Cholecystectomy
Allergy History:
No Known Allergies Allergy (Verified 08/28/24 06:36)
Medications Reviewed: Yes
Current Antibiotics:
Ceftriaxone
Azithromycin
Social History
Tobacco: Former Smoker
Alcohol: None
Drug: None
Personal:
Living: With Family
Family History
Family History: Not Pertinent
Review of Systems
Review of Systems
General: Change in Appetite; Negative Fever or Chills
HEENT: Negative Sinus Problems or Pharyngitis
Cardiovascular: Negative Chest Pain
Respiratory: Dyspnea and Cough; Negative Sputum Production
Gasteroenterology: Negative Nausea, Vomiting or Diarrhea
Genital / Urological: Negative Dysuria, Hematuria or Flank Pain
Endocrine: Weakness
Skin / Hair / Nails: Negative Rash
Neurological: Negative Dizziness
All systems: All other systems were reviewed and were negative
Vital Signs
Temp Pulse Resp BP Pulse Ox
98.2 F 70 16 111/51 88
10/16/24 07:25 10/16/24 07:25 10/16/24 07:25 10/16/24 07:25 10/16/24 07:25
Physical Exam
Physical Exam
Constitutional: No Acute Distress and Comfortable
Head: Other (No frontal or max or sinus tenderness)
Eyes: No Conjunctival Hemorrhage and Sclera Anicteric
Cardiovascular: Regular Rate and S1/S2
Pulmonary: Rales (crackles at bases)
Gastrointestinal: Soft, Non Tender, Non Distended and Normal Bowel Sounds
Genito-Urinary: Negative Fernandez, Suprapubic Tenderness or CVA Tenderness
Extremities: Negative Edema
Neurological: AO x 3
Lab / Diagnostic Study Results
10/16/24 05:35
10/16/24 05:35
Total Counted 100 10/15/24 14:18
Abs Neuts (Manual) 25.3 10^3/uL (1.4-6.5) H 10/15/24 14:18
Segmented Neutrophils 69 % (42-75) 10/15/24 14:18
Band Neutrophils 22 % (0-3) H 10/15/24 14:18
Lymphocytes (Manual) 1 % (20-51) L 10/15/24 14:18
PT 16.4 Sec (11.4-14.6) H 10/15/24 23:55
INR 1.29 10/15/24 23:55
Lactic Acid 1.2 mmol/L (0.7-2.0) 10/15/24 21:25
Ur Squamous Epith Cells 16-20 /LPF (Few) 10/16/24 08:49
Microbiology Results
Micro:
10/16/24 08:49 Urine Culture - Pending
Urine
10/15/24 15:53 Blood Culture - Preliminary
Blood/Venous Positive culture in progress
Gram Stain - Preliminary
10/15/24 15:53 Blood Culture - Preliminary
Blood/Venous Positive culture in progress
Gram Stain - Preliminary
10/15/24 15:53 Influenza Types A & B (ONEL) - Final
Nasal Swab Negative for Influenza A & B, NAAT
Negative results must be combined with clinical observations
and patient history.
Nucleic Acid Amplification test (NAAT)performed on the
[employer] NOW platform.
10/15/24 CXR: There are new patchy bibasilar airspace opacities concerning for pneumonia.
10/16/24 Head/Neck CTA: Bilateral carotid plaque with nonhemodynamically significant stenosis of the proximal internal carotid arteries bilaterally, right greater than left, as detailed above. Findings suspicious for small chronic dissection of the
proximal right internal carotid artery.
Assessment / Plan
# GNR bacteremia x 2 sets.
# Leukocytosis with bandemia
- possibly urine source, although pt without urinary sxs
- await identification of organism.
- Continue ceftriaxone (d2)
- Trend wbc.
# Pneumonia
- COVID vs bacterial CAP
- Check urine legionella and strep pneumo ag.
-Continue ceftriaxone and p.o. azithromycin.
# Mild symptomatic COVID19
- Sxs onset 10/14
- Hypoxic insufficiency
-Start molnupiravir 800 mg p.o. twice daily x 5 days. (CrCL <30)
- COVID isolation
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
Hypertension
Graves' disease
Gastric sarcoma status post resection
History of bladder cancer status post excision
Mild to moderate aortic regurgitation
HLD
Carotid artery stenosis s/p RIGHT carotid endarterectomy with patch angioplasty using bovine pericardium (08/28/24)
chronic adhesional pain s/p abdominal surgery,
WALT/BSO
Appendectomy
Cholecystectomy
Care Review
Plan reviewed with: Physician (Dr. Gallardo)
[2024-10-16 10:44] LABS: Amphetamines Negative (Negative); Barbiturates Negative (Negative); Benzodiazepines Negative (Negative); Buprenorphine Negative (Negative); Cocaine Negative (Negative); Marijuana Negative (Negative); Methadone Negative (Negative); Methamphetamines Negative (Negative); Opiates Negative (Negative); Phencyclidine Negative (Negative); Tricyclic Antidepressants Negative (Negative)
[2024-10-16 10:51] LABS: Ammonia < 9 umol/L (9-30)
[2024-10-16 10:56] LABS: Creatine Phosphokinase 97 U/L (30-135)
[2024-10-16] MEDS: ZITHROMAX 500 MG PO (10:56)
[2024-10-16] MEDS: MOLNUPIRAVIR (EUA) 800 MG PO ×2 (10:59→20:51)
--- NOTE | 2024-10-16 12:34 | W.PN.HOSP.TC ---
Today's Communication/Plan
-
MRI brain, neurology consult.
Assessment / Plan
Assessment / Plan
IMPRESSION:
Patient is a pleasant 83 years old with a history of hypertension, hyperlipidemia, hypothyroidism, carotid stenosis status post right carotid artery endarterectomy, who came to the ER combined with daughter at bedside for change in status,
was diagnosed with COVID on Tuesday and patient started sneezing 2 days ago and tested positive for COVID today.
found to have sepsis with elevated white count and acute renal failure.
Chest x-ray done in the ER shows There are new patchy bibasilar airspace opacities concerning for pneumonia.
10/16
Overnight developed unresponsive event and stroke alert
MRI pending.
Assessment/plan:
Severe sepsis with acute organ dysfunction
Patient meets sepsis criteria on admission
Elevated white count to 27.9
Bandemia 22
Source of infection is COVID/bacterial pneumonia
Organ dysfunction in form of acute metabolic encephalopathy/acute renal failure
hypotension and lactic acidosis
Start IV fluid
Start IV antibiotic in form of Rocephin/azithromycin
IV dexamethasone
Blood culture pending
Urine culture pending
Consulted infectious disease.
10/16
Overnight event of unresponsiveness.
2/2 blood cultures came back positive for gram-negative bacilli.
Infectious disease recommending to continue current anti-B
COVID-pneumonia
Continue infectious disease per
Start molnupiravir 800 mg p.o. twice daily x 5 days.
Episodes of unresponsiveness rule out acute CVA.
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
Episodes of unresponsiveness
Stroke alert called
CT head shows no acute finding.
CTA Neck showed No new occlusion or severe narrowing. Compared to prior exam, there is resolution of the moderate focal narrowing of the origin of the right internal carotid artery with persistent moderate focal narrowing just distally at the side
of prior dissection. The carotid arteries were other calles patent.
The bilateral vertebral arteries are widely patent
Moderate centrilobular emphysema. Moderate atherosclerotic calcifications of the aortic arch. Prior thyroidectomy.
CTA Head showed No occlusion or significant stenosis.
MRI pending.
Patient completely back to baseline.
Neurology consulted
Acute renal failure
continue IV fluid hydration.
Avoid nephrotoxins.
Hold lisinopril/amlodipine
Creatinine improved
Acute metabolic encephalopathy
Secondary to sepsis/rule out acute CVA
Superimposed with underlying mild dementia.
Continue to monitor
Lactic acidosis
Resolved
Hypertension
Currently hypotensive, hold amlodipine and lisinopril
History of hypercholesterolemia
Continue statin
CODE STATUS: Full code
DVT prophylaxis: Heparin
Diet: Regular diet
Family communication: Discussed with daughter at bedside
Total time spent on today's encounter was 65 minutes which included time spent in counseling the patient/family regarding diagnosis and treatment plan as listed above, goals of care, and symptom management. Case was discussed with nursing staff,
specialists, and care coordinators/case management. All labs and imaging personally reviewed by me. Remainder the time spent in detailed review of previous records, lab data, imaging, and other medical provider documentation.
Anticipated Discharge: > 48 hours
Subjective/Interval History
-
Date of Service: October 16, 2024
Patient seen and examined at bedside, overnight patient had episode of unresponsiveness.
Stroke alert called.
Currently patient back to baseline, patient denies any chest pain or shortness of breath, no abdominal pain, no nausea, no vomiting, no diarrhea or constipation.
Later discussed with daughter at bedside.
Objective Data
-
Labs:
Laboratory Results
10/15/24 10/16/24
23:55 05:35
WBC 23.2 H
Hgb 12.0
Hct 36.1 L
Plt Count 119 L
Sodium 143 143
Potassium 3.9 3.8
Chloride 111 H 110 H
Carbon Dioxide 19 L 17 L
BUN 46 H 46 H
Creatinine 1.7 H 1.6 H
Glucose 130 H 103 H
Calcium 8.6 8.6
Total Bilirubin 0.9 0.7
AST 36 33
ALT 16 17
Alkaline Phosphatase 85 97
Vital Signs:
Vital Signs
Temp Pulse Resp BP Pulse Ox
97.9 F 67 16 115/53 96
10/16/24 11:43 10/16/24 11:43 10/16/24 11:43 10/16/24 11:43 10/16/24 11:43
Physical Exam
-
General: Well Developed, Well Nourished, No Apparent Distress and Comfortable
HEENT: Normocephalic, Atraumatic, Moist Mucous Membranes, No Ptosis, PERRLA and Nose Appears Normal
Respiratory: Clear to Auscultation and Non Labored Respirations
Cardiac: Regular Rhythm and S1/S2
Breast: Deferred by me
GI: Soft, Nontender, Nondistended and Normal Bowel Sounds
Genito-urinary: No Costovertebral Tender
Musculoskeletal: No Clubbing, No Cyanosis and No Edema
Skin: Warm
Neuro: Awake, Alert, Oriented, AO x 3 and No Motor Deficits
Psych: Calm
Data Reviewed
-
Diagnostic Radiology: Image personally visualized and interpreted and Report Reviewed by me
CT Scan: Image personally visualized and interpreted and Report Reviewed by me
Ultrasound: Image personally visualized and interpreted and Report Reviewed by me
MRI: Image personally visualized and interpreted and Report Reviewed by me
Medical Tests (Nuc Med, Echo etc): Image personally visualized and interpreted and Report Reviewed by me
Labs: Labs Reviewed by me
Old Records: Reviewed
--- NOTE | 2024-10-16 12:42 | CM ---
Reviewed the chart notes and spoke with the patient at the bedside. The patient resides with her spouse in an independent apartment at [facility]. The patient reports no DME/VN/SNF in the past. The patient confirmed her pharmacy of choice is
the [facility] in [facility]. CM continues to be available to patient/family and is monitoring medical plan for needs at discharge.
Plan: Discharge to home when medically stable. No needs anticipated at this time.
[2024-10-16] MEDS: NSS 1000 IV (14:09)
[2024-10-16] MEDS: STERILE WATER FOR INJECTION 10 ML IV (16:23)
[2024-10-16] MEDS: ROCEPHIN 1000 MG IV (16:24)
[2024-10-16] MEDS: PRAVACHOL 20 MG PO (22:16)
[2024-10-17] VITALS (8 sets, daily range): BP systolic 127–154; BP diastolic 59–85; PULSE 63–85
[2024-10-17] MEDS: HEPARIN 5000 UNITS SC ×3 (01:02→17:20)
[2024-10-17] MEDS: NSS 1000 IV ×3 (03:15→22:54)
--- NOTE | 2024-10-17 04:02 | PTCARENOTE ---
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 Patient sleeping with no issues and arousable during 0000 heparin and 0300 vital signs.
[2024-10-17] MEDS: DECADRON 6 MG IV ×2 (05:35→17:20)
[2024-10-17] MEDS: SYNTHROID 75 MCG PO (05:36)
[2024-10-17] MEDS: MOLNUPIRAVIR (EUA) 800 MG PO ×2 (07:44→19:20)
[2024-10-17] MEDS: VITAMIN B-12 1000 MCG PO (07:45)
[2024-10-17] MEDS: VITAMIN D3 (cholecalciferol) 25 MCG PO (07:45)
[2024-10-17] MEDS: LOW STRENGTH ASPIRIN 81 MG PO (07:45)
[2024-10-17] MEDS: OSCAL 500 + D 500 MG PO (07:45)
[2024-10-17] MEDS: EXELON PATCH 4.6 MG TRANSDERM (07:45)
[2024-10-17] MEDS: FOLVITE 1 MG PO (07:45)
[2024-10-17] MEDS: ZITHROMAX 500 MG PO (07:45)
[2024-10-17 08:46] LABS: Blood Urea Nitrogen 44 mg/dl (7-17); Calcium 8.4 mg/dl (8.4-10.2); Carbon Dioxide 19 mmol/L (22-30); Chloride 114 mmol/L (98-107); Estimated Creatinine Clearance 36 ml/min; Glucose 132 mg/dl (70-99); Sodium 142 mmol/L (135-145); eGFR 55.21
[2024-10-17 09:03] LABS: Hematocrit 34.3 % (37.0-47.0); Hemoglobin 11.6 g/dL (12.0-16.0); Mean Corp Hgb Conc. 33.8 g/dL (33.0-37.0); Mean Corpuscular Hgb 32.1 pg (27.0-31.0); Mean Platelet Volume 11.2 fL (7.4-10.4); Platelet Count 140 10^3/uL (130-400); Red Blood Cell Count 3.61 10^6/uL (4.20-5.40); Red Cell Dist. Width 13.4 % (11.5-14.5)
--- NOTE | 2024-10-17 09:57 | W.PN.NEURO.1 ---
Today's Communication / Plan
-
.
Subjective/Objective
Subjective Data
Date of Service: October 17, 2024
Neurology Consultation Note.
The patient continues to be afebrile. She reports no complaints.
Brain MRI showed evidence of acute infarcts.
Urine cultures�E. coli, blood cultures�positive
Labs: WBCs�17, glucose�132, urine tox�negative
PMH: Mild dementia, R marginal mandibular nerve palsy, gastric sarcoma, bladder CA, T11-T12 compression fracture, HTN, DLP, anemia, hypothyroidism, GERD, osteoporosis, insomnia,
PSH: R CEA(08/28/2024), thyroidectomy, appendectomy, WALT/BSO, reduction mammoplasty, sacrocolpopexy, cholecystectomy, appendectomy,
SH: , resident at [facility], former smoker, does not drive
All:NKDA
ROS: Negative for headache, chills, fever, positive for chronic cognitive impairment, hearing impairment
General: Well developed. In no acute distress.
Cardio: Regular rate and rhythm without murmur. Extremities are without cyanosis or edema.
Neuro:
Mental Status: Alert, oriented to self, place. Impaired attention and comprehension. Follows simple requests. Nonfluent. No hemineglect.
Cranial Nerves: Pupils are equally round and reactive to light. EOMs full. Blinks to threat bilaterally no ptosis. No nystagmus. V1-V3 intact to light touch and pinprick bilaterally, symmetric. Mild R facial weakness. Poor hearing AU. The
palate elevated well. SCMs and traps 5/5. Tongue midline. No dysarthria.
Motor: Normal bulk and tone. No pronator or arm drift. Strength 5/5 throughout. No clonus.
Coordination: No dysmetria or tremor.
Gait: deferred
Assessment and Plan:
I. Transient unresponsiveness. Likely due to bacteremia, UTI
II. History of right REX stenosis status post right CEA (08/2024)
III. 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
IV. Encephalopathy (neurodegenerative, metabolic,infectious), stable.
V. 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
-Continue Telemetry monitoring
- Continue aspirin 81 mg once a day
- Neurosurgery consult (can be done as OP)
- Please follow up TFTs
- Please recall neurology service with any questions or concerns
I personally reviewed all radiology and labs along with past medical records pertinent to current medical problems. Total time spent in patient care is 35 minutes.
Thank you for allowing us to participate in the care of this patient. Please do not hesitate to contact us with any questions or concerns.
Objective Data
Vital Signs
Temp Pulse Resp BP Pulse Ox
36.4 C 104 16 154/75 96
10/17/24 07:56 10/17/24 07:56 10/17/24 07:56 10/17/24 07:56 10/17/24 07:56
Lab Results
10/17/24 07:35
10/17/24 07:35
PT 16.4 Sec (11.4-14.6) H 10/15/24 23:55
INR 1.29 10/15/24 23:55
APTT 35.4 Sec (23.4-35.0) H 10/15/24 23:55
Sodium 142 mmol/L (135-145) 10/17/24 07:35
Potassium 4.0 mmol/L (3.5-5.1) 10/17/24 07:35
BUN 44 mg/dl (7-17) H 10/17/24 07:35
Glucose 132 mg/dl (70-99) H 10/17/24 07:35
Calcium 8.4 mg/dl (8.4-10.2) 10/17/24 07:35
Ur Buprenorphine Negative (Negative) 10/16/24 08:49
Patient Allergies
No Known Allergies Allergy (Verified 08/28/24 06:36)
Vital Signs and Labs
-
Vital Signs and Labs:
Vital Signs
Temp Pulse Resp BP Pulse Ox
36.4 C 104 16 154/75 96
10/17/24 07:56 10/17/24 07:56 10/17/24 07:56 10/17/24 07:56 10/17/24 07:56
Lab Results
10/17/24 07:35
10/17/24 07:35
PT 16.4 Sec (11.4-14.6) H 10/15/24 23:55
INR 1.29 10/15/24 23:55
APTT 35.4 Sec (23.4-35.0) H 10/15/24 23:55
Sodium 142 mmol/L (135-145) 10/17/24 07:35
Potassium 4.0 mmol/L (3.5-5.1) 10/17/24 07:35
BUN 44 mg/dl (7-17) H 10/17/24 07:35
Glucose 132 mg/dl (70-99) H 10/17/24 07:35
Calcium 8.4 mg/dl (8.4-10.2) 10/17/24 07:35
Ur Buprenorphine Negative (Negative) 10/16/24 08:49
Medications
-
Medications:
Generic Name Dose Route Start Last Admin
Trade Name Freq PRN Reason Stop Dose Admin
Acetaminophen 650 mg 10/15/24 21:47
Acetaminophen 325 Mg Tablet PO 11/12/24 21:46
Q4HPRN PRN
mild pain/MILAN/temp> 100.4F
Albuterol/Ipratropium 3 ml 10/15/24 21:47
Ipratropium 0.5/Albuterol 3 Mg (3 Ml Ampul) INH
R Q4HPRN PRN
shortness of breath
Protocol
Aspirin 81 mg 10/16/24 08:00 04/16/25 07:45
Aspirin 81 Mg Chewable Tablet PO 11/13/24 07:59 81 mg
DAILY SUMEET Administration
Azithromycin 500 mg 10/16/24 11:00 10/17/24 07:45
Azithromycin 250 Mg Tablet PO 500 mg
DAILY SUMEET Administration
Bisacodyl 10 mg 10/15/24 21:47
Bisacodyl 10 Mg Rectal Suppository RECTAL 11/12/24 21:46
[id number] PRN
constipation
Calcium/Vitamin D 500 mg 10/16/24 08:00 10/17/24 07:45
Calcium Carbonate 500 Mg/Vitamin D 5 Mcg (200 Units) Tablet PO 11/13/24 07:59 500 mg
DAILY SUMEET Administration
Ceftriaxone Sodium 1,000 mg 10/16/24 16:00 10/16/24 16:24
Ceftriaxone 1000 Mg / 10 Ml Vial IV 1,000 mg
Q24H SUMEET Administration
Cholecalciferol 25 mcg 10/16/24 08:00 10/17/24 07:45
Cholecalciferol (Vitamin D3) 25 Mcg Tablet (1,000 Units) PO 11/13/24 07:59 25 mcg
DAILY SUMEET Administration
Cyanocobalamin 1,000 mcg 10/16/24 08:00 10/17/24 07:45
Cyanocobalamin 1,000 Mcg Tablet PO 11/13/24 07:59 1,000 mcg
DAILY SUMEET Administration
Dexamethasone Sodium Phosphate 6 mg 10/15/24 18:00 10/17/24 05:35
Dexamethasone 4 Mg/Ml 1 Ml Vial IV 11/12/24 17:59 6 mg
Q12H SUMEET Administration
Folic Acid 1 mg 10/16/24 08:00 10/17/24 07:45
Folic Acid 1 Mg Tablet PO 11/13/24 07:59 1 mg
DAILY SUMEET Administration
Heparin Sodium 5,000 units 10/16/24 00:00 10/17/24 07:45
Heparin 5,000 Units/Ml 1 Ml Vial SC 11/13/24 00:00 5,000 units
Q8 SUMEET Administration
Levothyroxine Sodium 75 mcg 10/16/24 06:00 10/17/24 05:36
Levothyroxine 75 Mcg Tablet PO 11/13/24 05:59 75 mcg
DAILY @ 0600 SUMEET Administration
Molnupiravir 800 mg 10/16/24 10:37 10/17/24 07:44
Molnupiravir 200 Mg Capsule PO 10/20/24 20:01 800 mg
BID SUMEET Administration
Ondansetron HCl 4 mg 10/15/24 21:47
Ondansetron 4 Mg/2 Ml Vial IV 11/12/24 21:46
Q6HPRN PRN
nausea and vomiting
Polyethylene Glycol 17 grams 10/15/24 21:47
Polyethylene Glycol Powder 17 Grams Packet PO 11/12/24 21:46
DAILYPRN PRN
constipation
Pravastatin Sodium 20 mg 10/15/24 22:00 10/16/24 22:16
Pravastatin 20 Mg Tablet PO 11/12/24 21:59 20 mg
HS SUMEET Administration
Rivastigmine 4.6 mg 10/16/24 08:00 10/17/24 07:45
Rivastigmine (Exelon) 4.6 Mg Patch TRANSDERM 11/13/24 07:59 4.6 mg
DAILY SUMEET Administration
Senna/Docusate Sodium 1 tablet 10/15/24 21:47
Docusate W/Senna (Shikha-Colace) Tablet PO 11/12/24 21:46
BIDPRN PRN
constipation
Sodium Chloride 0 flush 10/15/24 18:00
Sodium Chloride 0.9% (Flush) Syringe IV 11/12/24 17:59
PER PROTOCOL SUMEET
Sterile Water 10 ml 10/16/24 16:00 10/16/24 16:23
Sterile Water For Injection 10 Ml Vial IV 11/13/24 15:59 10 ml
Q24H SUMEET Administration
Trazodone HCl 100 mg 10/15/24 22:00 10/16/24 22:16
Trazodone 50 Mg Tablet PO 11/12/24 21:59 Not Given
HS SUMEET
Home Medications
-
Home Medications
acetaminophen 500 mg tablet 1,000 mg PO BID Pain 08/20/24
amlodipine 10 mg tablet 10 mg PO DAILY Blood Pressure 08/20/24
calcium 600 mg (as carbonate)-vit D3 20 mcg (800 unit) chewable tablet (Caltrate plus D) 1 tab PO DAILY Supplement 08/20/24
cholecalciferol (vitamin D3) 25 mcg (1,000 unit) capsule (Vitamin D3) 25 mcg PO DAILY Supplement 08/20/24
folic acid 1 mg tablet 1 mg PO DAILY Supplement 08/20/24
lisinopril 10 mg tablet 10 mg PO DAILY Blood Pressure 08/20/24
pravastatin 20 mg tablet 20 mg PO HS High Cholesterol 08/20/24
trazodone 50 mg tablet 100 mg PO HS Sleep 08/20/24
rivastigmine 4.6 mg/24 hour transdermal patch 1 patch transdermal DAILY 08/28/24
aspirin 81 mg chewable tablet 81 mg PO DAILY Blood Clot Prevention/Tx 10/15/24
cyanocobalamin (vitamin B-12) 1,000 mcg tablet 1,000 mcg PO DAILY Supplement 10/15/24
levothyroxine 75 mcg tablet 75 mcg PO DAILY Thyroid 10/15/24
[2024-10-17 11:51] LABS: % Basophils 0.2 % (0-2); % Immature Granulocytes 1.4 % (0-0.5); % Lymphocytes 2.5 % (20.5-51.1); % Monocytes 2.3 % (1.7-9.3); % Neutrophils 93.6 % (42.2-75.2); Absolute Immature Granulocytes 0.2 10^3/uL (0-0.05); Absolute Lymphocytes 0.4 10^3/uL (1.2-3.4); Absolute Monocytes 0.4 10^3/uL (0.1-0.6); Absolute Neutrophils 15.9 10^3/uL (1.4-6.5); Nucleated Red Blood Cells % 0 %
--- NOTE | 2024-10-17 11:51 | W.PN.HOSP.TC ---
Today's Communication/Plan
-
Pending repeat blood culture
Assessment / Plan
Assessment / Plan
IMPRESSION:
Patient is a pleasant 83 years old with a history of hypertension, hyperlipidemia, hypothyroidism, carotid stenosis status post right carotid artery endarterectomy, who came to the ER combined with daughter at bedside for change in status,
was diagnosed with COVID on Tuesday and patient started sneezing 2 days ago and tested positive for COVID today.
found to have sepsis with elevated white count and acute renal failure.
Chest x-ray done in the ER shows There are new patchy bibasilar airspace opacities concerning for pneumonia.
Patient developed unresponsive event and stroke alert
MRI shows no acute finding, patient back to baseline
Assessment/plan:
Severe sepsis with acute organ dysfunction
Patient meets sepsis criteria on admission
Elevated white count to 27.9
Bandemia 22
Source of infection is COVID/bacterial pneumonia
Organ dysfunction in form of acute metabolic encephalopathy/acute renal failure
hypotension and lactic acidosis
Start IV fluid
Start IV antibiotic in form of Rocephin/azithromycin
IV dexamethasone
Blood culture pending
Urine culture pending
Consulted infectious disease.
10/16
Overnight event of unresponsiveness.
2/2 blood cultures came back positive for gram-negative bacilli.
Infectious disease recommending to continue current antibiotic.
10/17
MRI negative
Patient back to baseline
Improved leukocytosis
Repeat blood culture pending
COVID-pneumonia
Continue infectious disease per
Started on molnupiravir 800 mg p.o. twice daily x 5 days.
Episodes of unresponsiveness rule out acute CVA.
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
Episodes of unresponsiveness
Stroke alert called
CT head shows no acute finding.
CTA Neck showed No new occlusion or severe narrowing. Compared to prior exam, there is resolution of the moderate focal narrowing of the origin of the right internal carotid artery with persistent moderate focal narrowing just distally at the side
of prior dissection. The carotid arteries were other calles patent.
The bilateral vertebral arteries are widely patent
Moderate centrilobular emphysema. Moderate atherosclerotic calcifications of the aortic arch. Prior thyroidectomy.
CTA Head showed No occlusion or significant stenosis.
MRI pending.
Patient completely back to baseline.
Neurology consulted
10/17
MRI negative.
Patient back to baseline.
Acute renal failure
continue IV fluid hydration.
Avoid nephrotoxins.
Hold lisinopril/amlodipine
Creatinine improved
10/17
Resolved, discontinue IV fluid
Acute metabolic encephalopathy
Secondary to sepsis/rule out acute CVA
Superimposed with underlying mild dementia.
Continue to monitor
Lactic acidosis
Resolved
Hypertension
Currently hypotensive, hold amlodipine and lisinopril
10/17
Kidney function improved.
Blood pressure improved
Resume Norvasc today and lisinopril 10
History of hypercholesterolemia
Continue statin
CODE STATUS: Full code
DVT prophylaxis: Heparin
Diet: Regular diet
Family communication: Discussed with daughter at bedside
Total time spent on today's encounter was 65 minutes which included time spent in counseling the patient/family regarding diagnosis and treatment plan as listed above, goals of care, and symptom management. Case was discussed with nursing staff,
specialists, and care coordinators/case management. All labs and imaging personally reviewed by me. Remainder the time spent in detailed review of previous records, lab data, imaging, and other medical provider documentation.
Anticipated Discharge: Within 24 hours
Subjective/Interval History
-
Date of Service: October 17, 2024
Patient seen and examined at bedside, denies any chest pain or shortness of breath, no abdominal pain, no nausea, no vomiting, no diarrhea or constipation.
MRI brain shows no acute infarct.
Objective Data
-
Labs:
Laboratory Results
10/17/24
07:35
WBC 17.0 H
Hgb 11.6 L
Hct 34.3 L
Plt Count 140
Sodium 142
Potassium 4.0
Chloride 114 H
Carbon Dioxide 19 L
BUN 44 H
Creatinine 1.0
Glucose 132 H
Calcium 8.4
Vital Signs:
Vital Signs
Temp Pulse Resp BP Pulse Ox
97.8 F 63 16 144/66 96
10/17/24 11:30 10/17/24 11:30 10/17/24 11:30 10/17/24 11:30 10/17/24 11:30
I&O
10/16/24 10/17/24 10/18/24
06:59 06:59 06:59
Intake Total 1380 / 1380
Balance 1380 / 1380
Physical Exam
-
General: Well Developed, Well Nourished, No Apparent Distress and Comfortable
HEENT: Normocephalic, Atraumatic, Moist Mucous Membranes, No Ptosis, PERRLA and Nose Appears Normal
Respiratory: Clear to Auscultation and Non Labored Respirations
Cardiac: Regular Rhythm and S1/S2
Breast: Deferred by me
GI: Soft, Nontender, Nondistended and Normal Bowel Sounds
Genito-urinary: No Costovertebral Tender
Musculoskeletal: No Clubbing, No Cyanosis and No Edema
Skin: Warm
Neuro: Awake, Alert, Oriented, AO x 3 and No Motor Deficits
Psych: Calm
Data Reviewed
-
Diagnostic Radiology: Image personally visualized and interpreted and Report Reviewed by me
CT Scan: Image personally visualized and interpreted and Report Reviewed by me
Ultrasound: Image personally visualized and interpreted and Report Reviewed by me
MRI: Image personally visualized and interpreted and Report Reviewed by me
Medical Tests (Nuc Med, Echo etc): Image personally visualized and interpreted and Report Reviewed by me
Labs: Labs Reviewed by me
Old Records: Reviewed
--- NOTE | 2024-10-17 12:05 | CM ---
Reviewed the chart notes. Patient from independent living at [facility]. Per PT notes, no skilled need. CM continues to be available to patient/family and is monitoring medical plan for needs at discharge.
Plan: Discharge back to home when medically stable. No needs anticipated at this time.
[2024-10-17] MEDS: OMNIPAQUE 50 ML PO (12:42)
[2024-10-17] MEDS: NORVASC 10 MG PO (12:42)
--- NOTE | 2024-10-17 13:56 | W.PN.ID1 ---
Date of Service
Date of Service: October 17, 2024
Today's Communication
Recommend CT a/p
Assessment / Plan
# E.coli bacteremia x 2 sets.
# Leukocytosis with bandemia - improving
- Ucx< 40K mixed mj -> not urine source of bacteremia
- Recommend CT a/p with po and IV contrast to assess for intra-abd source.
- Repeat blood cx's
- Continue ceftriaxone (d3) for now pending susceptibility.
- Trend wbc.
# Pneumonia
- COVID vs bacterial CAP
- urine legionella and strep pneumo ag neg (low sensitivity tests)
-Continue ceftriaxone and p.o. azithromycin (d3)
# Mild symptomatic COVID19
- Sxs onset 10/14
- Hypoxic insufficiency - resolved
-Continue molnupiravir 800 mg p.o. twice daily (d2 of 5). (CrCL <30)
- COVID isolation
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
Hypertension
Graves' disease
Gastric sarcoma status post resection
History of bladder cancer status post excision
Mild to moderate aortic regurgitation
HLD
Carotid artery stenosis s/p RIGHT carotid endarterectomy with patch angioplasty using bovine pericardium (08/28/24)
chronic adhesional pain s/p abdominal surgery,
WALT/BSO
Appendectomy
Cholecystectomy
Chief Complaint
-: Pneumonia, Bacteremia and Other (COVID)
Subjective / Review of Systems
Daughter at bedside.
Pt reports she is feeling good today. Cough better.
Per daughter had diarrhea at home. No diarrhea today.
Vital Signs / Physical Exam
Vital Signs
Vital Signs
Temp Pulse Resp BP Pulse Ox
97.8 F 63 16 144/66 96
10/17/24 11:30 10/17/24 11:30 10/17/24 11:30 10/17/24 11:30 10/17/24 11:30
Physical Exam
Constitutional: No Acute Distress and Comfortable
Eyes: Sclera Anicteric
Cardiovascular: Regular Rate and S1/S2
Pulmonary: Coarse (bases)
Gastrointestinal: Soft, Non Tender and Non Distended
Genito-Urinary: Negative CVA Tenderness
Extremities: Negative Edema
Neurological: AO x 3
Objective Data
Lab Data
Lab Results
10/17/24 07:35
10/17/24 07:35
PT 16.4 Sec (11.4-14.6) H 10/15/24 23:55
INR 1.29 10/15/24 23:55
APTT 35.4 Sec (23.4-35.0) H 10/15/24 23:55
Estimated Creat Clear 36 ml/min 10/17/24 07:35
Lactic Acid 1.2 mmol/L (0.7-2.0) 10/15/24 21:25
Total Bilirubin 0.7 mg/dl (0.2-1.3) 10/16/24 05:35
AST 33 U/L (14-36) 10/16/24 05:35
ALT 17 U/L (0-35) 10/16/24 05:35
Alkaline Phosphatase 97 U/L (38-126) 10/16/24 05:35
Most recent labs reviewed.
Micro Results:
10/15/24 15:53 Blood Culture - Preliminary
Blood/Venous Escherichia coli
Gram Stain - Preliminary
10/15/24 15:53 Blood Culture - Preliminary
Blood/Venous Escherichia coli
Gram Stain - Preliminary
10/17/24 10:45 Blood Culture - Pending
Blood/Venous
10/16/24 08:49 Urine Culture - Final
Urine
10/17/24 09:46 Blood Culture - Pending
Blood/Venous
10/16/24 08:49 Legionella Urinary Antigen - Final
Urine Negative for Legionella pneumophila Serogroup 1 antigen.
A negative result does not rule out the possiblity of
Legionella infection due to other serogroups or species of
Legionella. Clinical correlation is recommended.
Streptococcus pneumoniae Antigen (M - Final
Negative for Streptococcus pneumoniae antigen.
A negative result does not exclude infection with
Streptococcus pneumoniae. Clinical correlation is
recommended.
10/15/24 15:53 Influenza Types A & B (ONEL) - Final
Nasal Swab Negative for Influenza A & B, NAAT
Negative results must be combined with clinical observations
and patient history.
Nucleic Acid Amplification test (NAAT)performed on the
[employer] platform.
10/15/24 CXR: There are new patchy bibasilar airspace opacities concerning for pneumonia.
10/16/24 Head/Neck CTA: Bilateral carotid plaque with nonhemodynamically significant stenosis of the proximal internal carotid arteries bilaterally, right greater than left, as detailed above. Findings suspicious for small chronic dissection of the
proximal right internal carotid artery.
Care Review
Plan reviewed with: Physician (Dr. Gallardo)
[2024-10-17] MEDS: STERILE WATER FOR INJECTION 10 ML IV (17:20)
[2024-10-17] MEDS: ROCEPHIN 1000 MG IV (17:20)
--- NOTE | 2024-10-17 17:51 | CON.MD ---
Consultation - Medical
-
see dictated note
pt with remote hx of bladder cancer
presented with fevers/mild hypotension
COVID +- blood cx's would return + for ecoli/ ucx contamination
has been stable
had CT today- obstructing prox right ureteral stone
pt is comfortable/afebrile/HD stable
has mild dementia reviewed plan with pt/daughter and med team
clinically stable now
continue hydration and iv antibx
to OR tomorrow for cysto/stent
risks, benefits, alternatives and disabilities reviewed
consent signed
[2024-10-17 19:59] LABS: TSH 0.72 uIU/ml (0.47-4.68)
[2024-10-17] MEDS: PRAVACHOL 20 MG PO (21:47)
[2024-10-18] VITALS (14 sets, daily range): BP systolic 107–170; BP diastolic 51–90; PULSE 68–78
[2024-10-18] MEDS: HEPARIN 5000 UNITS SC ×2 (00:52→08:38)
[2024-10-18] MEDS: DECADRON 6 MG IV ×2 (05:28→18:56)
[2024-10-18] MEDS: SYNTHROID 75 MCG PO (05:29)
--- NOTE | 2024-10-18 06:18 | W.PN.UPDATE ---
Update Note
Progress Note Update
pt stable overnight
plan for OR today for stent placement
[employer] delivery consultant to OR
[2024-10-18 06:53] LABS: Hematocrit 32.2 % (37.0-47.0); Hemoglobin 10.9 g/dL (12.0-16.0); Mean Corp Hgb Conc. 33.9 g/dL (33.0-37.0); Mean Corpuscular Hgb 32.2 pg (27.0-31.0); Mean Corpuscular Volume 95.3 fL (81.0-99.0); Mean Platelet Volume 10.9 fL (7.4-10.4); Platelet Count 140 10^3/uL (130-400); Red Blood Cell Count 3.38 10^6/uL (4.20-5.40); Red Cell Dist. Width 13.4 % (11.5-14.5); White Blood Cell Count 12.3 10^3/uL (4.8-10.8)
[2024-10-18 07:16] LABS: Blood Urea Nitrogen 35 mg/dl (7-17); Calcium 8.7 mg/dl (8.4-10.2); Carbon Dioxide 20 mmol/L (22-30); Chloride 113 mmol/L (98-107); Estimated Creatinine Clearance 36 ml/min; Glucose 134 mg/dl (70-99); Potassium 4.1 mmol/L (3.5-5.1); Sodium 142 mmol/L (135-145); eGFR 55.21
[2024-10-18] MEDS: EXELON PATCH 4.6 MG TRANSDERM (08:36)
[2024-10-18] MEDS: MOLNUPIRAVIR (EUA) 800 MG PO ×2 (08:37→20:03)
[2024-10-18] MEDS: FOLVITE 1 MG PO (08:37)
[2024-10-18] MEDS: NORVASC 10 MG PO (08:38)
[2024-10-18] MEDS: LOW STRENGTH ASPIRIN 81 MG PO (08:38)
[2024-10-18] MEDS: OSCAL 500 + D 500 MG PO (08:38)
[2024-10-18] MEDS: ZITHROMAX 500 MG PO (08:38)
[2024-10-18] MEDS: VITAMIN B-12 1000 MCG PO (08:38)
[2024-10-18] MEDS: VITAMIN D3 (cholecalciferol) 25 MCG PO (08:39)
[2024-10-18] MEDS: ZESTRIL 10 MG PO (08:40)
[2024-10-18] MEDS: NSS 1000 IV (09:51)
--- NOTE | 2024-10-18 10:03 | CM ---
Reviewed the chart notes. Per notes, plan to proceed to the operating room tomorrow for cystoscopy and right ureteral stent placement. CM continues to be available to patient/family and is monitoring medical plan for needs at discharge.
Plan: Discharge plans will depend on the patient's progress after procedure.
--- NOTE | 2024-10-18 11:12 | W.PN.ID1 ---
Date of Service
Date of Service: October 18, 2024
Today's Communication
Continue current abx's.
Assessment / Plan
# E.coli bacteremia x 2 sets.
# Right pyelonephritis with obstructive uropathy
# Leukocytosis with bandemia - improving
- For ureteral stent today as per Urology.
- Repeat blood cx's neg to date
- Continue ceftriaxone (d4) for now pending susceptibility.
- Trend wbc.
# Pneumonia
- COVID vs bacterial CAP
- urine legionella and strep pneumo ag neg (low sensitivity tests)
-Continue ceftriaxone and p.o. azithromycin (d4)
# Mild symptomatic COVID19
- Sxs onset 10/14
- Hypoxic insufficiency - resolved
-Continue molnupiravir 800 mg p.o. twice daily (d3 of 5). (CrCL <30)
- COVID isolation
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
Hypertension
Graves' disease
Gastric sarcoma status post resection
History of bladder cancer status post excision
Mild to moderate aortic regurgitation
HLD
Carotid artery stenosis s/p RIGHT carotid endarterectomy with patch angioplasty using bovine pericardium (08/28/24)
chronic adhesional pain s/p abdominal surgery,
WALT/BSO
Appendectomy
Cholecystectomy
Chief Complaint
-: Pneumonia, Bacteremia and Other (COVID)
Subjective / Review of Systems
Continues to feel improved. Cough resolved.
No urinary sxs.
Vital Signs / Physical Exam
Vital Signs
Vital Signs
Temp Pulse Resp BP Pulse Ox
98.7 F 65 17 137/64 98
10/18/24 07:27 10/18/24 07:27 10/18/24 07:27 10/18/24 07:27 10/18/24 07:27
Physical Exam
Constitutional: No Acute Distress and Comfortable
Cardiovascular: Regular Rate and S1/S2
Pulmonary: Clear
Gastrointestinal: Soft, Non Tender, Non Distended and Normal Bowel Sounds
Genito-Urinary: Negative CVA Tenderness
Extremities: Negative Edema
Neurological: AO x 3
Objective Data
Lab Data
Lab Results
10/18/24 06:10
10/18/24 06:10
PT 16.4 Sec (11.4-14.6) H 10/15/24 23:55
INR 1.29 10/15/24 23:55
APTT 35.4 Sec (23.4-35.0) H 10/15/24 23:55
Estimated Creat Clear 36 ml/min 10/18/24 06:10
Lactic Acid 1.2 mmol/L (0.7-2.0) 10/15/24 21:25
Total Bilirubin 0.7 mg/dl (0.2-1.3) 10/16/24 05:35
AST 33 U/L (14-36) 10/16/24 05:35
ALT 17 U/L (0-35) 10/16/24 05:35
Alkaline Phosphatase 97 U/L (38-126) 10/16/24 05:35
Most recent labs reviewed.
Micro Results:
10/17/24 10:45 Blood Culture - Preliminary
Blood/Venous No Growth in 24 hours- Final report to follow
10/15/24 15:53 Blood Culture - Preliminary
Blood/Venous Escherichia coli
Gram Stain - Preliminary
10/17/24 09:46 Blood Culture - Preliminary
Blood/Venous No Growth in 24 hours- Final report to follow
10/15/24 15:53 Blood Culture - Preliminary
Blood/Venous Escherichia coli
Gram Stain - Preliminary
10/16/24 08:49 Urine Culture - Final
Urine
10/16/24 08:49 Legionella Urinary Antigen - Final
Urine Negative for Legionella pneumophila Serogroup 1 antigen.
A negative result does not rule out the possiblity of
Legionella infection due to other serogroups or species of
Legionella. Clinical correlation is recommended.
Streptococcus pneumoniae Antigen (M - Final
Negative for Streptococcus pneumoniae antigen.
A negative result does not exclude infection with
Streptococcus pneumoniae. Clinical correlation is
recommended.
10/15/24 15:53 Influenza Types A & B (ONEL) - Final
Nasal Swab Negative for Influenza A & B, NAAT
Negative results must be combined with clinical observations
and patient history.
Nucleic Acid Amplification test (NAAT)performed on the
[employer] platform.
10/15/24 CXR: There are new patchy bibasilar airspace opacities concerning for pneumonia.
10/16/24 Head/Neck CTA: Bilateral carotid plaque with nonhemodynamically significant stenosis of the proximal internal carotid arteries bilaterally, right greater than left, as detailed above. Findings suspicious for small chronic dissection of the
proximal right internal carotid artery.
10/17/24 CT a/p: There is a 7 mm stone in the proximal right ureter with associated mild right-sided hydronephrosis. There is a small wedge-shaped focus of mild hypoenhancement within the inferior pole the right kidney suspicious for focal
pyelonephritis.
Care Review
Plan reviewed with: Physician (Dr. Gallardo)
--- NOTE | 2024-10-18 11:24 | W.PN.HOSP.TC ---
Today's Communication/Plan
-
OR today.
CT head
Assessment / Plan
Assessment / Plan
IMPRESSION:
Patient is a pleasant 83 years old with a history of hypertension, hyperlipidemia, hypothyroidism, carotid stenosis status post right carotid artery endarterectomy, who came to the ER combined with daughter at bedside for change in status,
was diagnosed with COVID on Tuesday and patient started sneezing 2 days ago and tested positive for COVID today.
found to have sepsis with elevated white count and acute renal failure.
Chest x-ray done in the ER shows There are new patchy bibasilar airspace opacities concerning for pneumonia.
Patient developed unresponsive event and stroke alert
MRI shows no acute finding, patient back to baseline
CT abdomen pelvis done shows: 7 mm stone in the proximal right ureter with associated mild right-sided hydronephrosis. There is a small wedge-shaped focus of mild hypoenhancement within the inferior pole the right kidney suspicious for focal
pyelonephritis.
Trace bilateral pleural effusions with adjacent airspace opacities which may represent atelectasis or pneumonia.
Assessment/plan:
Severe sepsis with acute organ dysfunction
Patient meets sepsis criteria on admission
Elevated white count to 27.9
Bandemia 22
Source of infection is COVID/bacterial pneumonia/pyelonephritis
Organ dysfunction in form of acute metabolic encephalopathy/acute renal failure
hypotension and lactic acidosis
Start IV fluid
Start IV antibiotic in form of Rocephin/azithromycin
IV dexamethasone
Blood culture pending
Urine culture pending
Consulted infectious disease.
10/16
Overnight event of unresponsiveness.
2/ blood cultures came back positive for gram-negative bacilli.
Infectious disease recommending to continue current antibiotic.
10/17
MRI negative
Patient back to baseline
Improved leukocytosis
Repeat blood culture pending
10/18
Continue to improve leukocytosis.
Blood culture remains negative
Obstructive nephropathy with right-sided hydronephrosis/pyelonephritis
CT abdomen pelvis done shows: 7 mm stone in the proximal right ureter with associated mild right-sided hydronephrosis. There is a small wedge-shaped focus of mild hypoenhancement within the inferior pole the right kidney suspicious for focal
pyelonephritis.
Patient denies abdominal pain.
Continue Rocephin.
Urology consulted
for OR today by urology.
Status post fall
CT head ordered
Fall precautions.
PT/OT consult.
Social service for discharge planning.
COVID-pneumonia
Continue infectious disease per
Started on molnupiravir 800 mg p.o. twice daily x 5 days.
Episodes of unresponsiveness rule out acute CVA.
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
Episodes of unresponsiveness
Stroke alert called
CT head shows no acute finding.
CTA Neck showed No new occlusion or severe narrowing. Compared to prior exam, there is resolution of the moderate focal narrowing of the origin of the right internal carotid artery with persistent moderate focal narrowing just distally at the side
of prior dissection. The carotid arteries were other calles patent.
The bilateral vertebral arteries are widely patent
Moderate centrilobular emphysema. Moderate atherosclerotic calcifications of the aortic arch. Prior thyroidectomy.
CTA Head showed No occlusion or significant stenosis.
MRI pending.
Patient completely back to baseline.
Neurology consulted
10/17
MRI negative.
Patient back to baseline.
Acute renal failure
continue IV fluid hydration.
Avoid nephrotoxins.
Hold lisinopril/amlodipine
Creatinine improved
10/17
Resolved, discontinue IV fluid
Acute metabolic encephalopathy
Secondary to sepsis/rule out acute CVA
Superimposed with underlying mild dementia.
Continue to monitor
Lactic acidosis
Resolved
Hypertension
Currently hypotensive, hold amlodipine and lisinopril
10/17
Kidney function improved.
Blood pressure improved
Resume Norvasc today and lisinopril 10
History of hypercholesterolemia
Continue statin
CODE STATUS: Full code
DVT prophylaxis: Heparin
Diet: Regular diet
Family communication: Discussed with daughter at bedside
Total time spent on today's encounter was 65 minutes which included time spent in counseling the patient/family regarding diagnosis and treatment plan as listed above, goals of care, and symptom management. Case was discussed with nursing staff,
specialists, and care coordinators/case management. All labs and imaging personally reviewed by me. Remainder the time spent in detailed review of previous records, lab data, imaging, and other medical provider documentation.
Anticipated Discharge: Within 24 hours
Subjective/Interval History
-
Date of Service: October 18, 2024
Patient seen and examined at bedside, denies any chest pain or shortness of breath, no abdominal pain, no nausea, no vomiting, no diarrhea or constipation.
Plan for OR today.
Later on around 11:10 patient had a witnessed fall in the bathroom and hit her head
Patient seen again and examined at bedside, no headaches, no sign of bruising or ecchymosis.
Will obtain CT head.
Objective Data
-
Labs:
Laboratory Results
10/18/24
06:10
WBC 12.3 H
Hgb 10.9 L
Hct 32.2 L
Plt Count 140
Sodium 142
Potassium 4.1
Chloride 113 H
Carbon Dioxide 20 L
BUN 35 H
Creatinine 1.0
Glucose 134 H
Calcium 8.7
Vital Signs:
Vital Signs
Temp Pulse Resp BP Pulse Ox
98.7 F 65 17 137/64 98
10/18/24 07:27 10/18/24 07:27 10/18/24 07:27 10/18/24 07:27 10/18/24 07:27
I&O
10/17/24 10/18/24 10/19/24
06:59 06:59 06:59
Intake Total 1380 / 1380 960 / 960
Balance 1380 / 1380 960 / 960
Physical Exam
-
General: Well Developed, Well Nourished, No Apparent Distress and Comfortable
HEENT: Normocephalic, Atraumatic, Moist Mucous Membranes, No Ptosis, PERRLA and Nose Appears Normal
Respiratory: Clear to Auscultation and Non Labored Respirations
Cardiac: Regular Rhythm and S1/S2
Breast: Deferred by me
GI: Soft, Nontender, Nondistended and Normal Bowel Sounds
Genito-urinary: No Costovertebral Tender
Musculoskeletal: No Clubbing, No Cyanosis and No Edema
Skin: Warm
Neuro: Awake, Alert, Oriented, AO x 3 and No Motor Deficits
Psych: Calm
Data Reviewed
-
Diagnostic Radiology: Image personally visualized and interpreted and Report Reviewed by me
CT Scan: Image personally visualized and interpreted and Report Reviewed by me
Ultrasound: Image personally visualized and interpreted and Report Reviewed by me
MRI: Image personally visualized and interpreted and Report Reviewed by me
Medical Tests (Nuc Med, Echo etc): Image personally visualized and interpreted and Report Reviewed by me
Labs: Labs Reviewed by me
Old Records: Reviewed
--- NOTE | 2024-10-18 12:38 | FALL ---
Description of Fall:
Witnessed fall. Patient slide off of the toilet. Hit left side of face on wall.
Injuries Noted:
Patient denies any injuries.
Action Taken:
MD notified. Vital signs. Head CT.
Name of Provider Notified: Dr. Gallardo
--- NOTE | 2024-10-18 17:16 | W.IMMPOSTOP ---
Surgical Immed Post Op Note
-
Primary Surgeon:
aman
Assisting Surgeon:
Pre-op Diagnosis:
right ureteral stone
Post-op Diagnosis:
same
Procedure Performed:
cysto, right ureteral stent
Anesthesia Type:
gen
Specimen / Cultures:
none
Estimated Blood Loss:
0cc
Complications:
none
Operative Findings:
vaginal stenosis
no bladder tumor
stent placed
to PACU in stable condition
[2024-10-18] MEDS: STERILE WATER FOR INJECTION 10 ML IV (18:55)
[2024-10-18] MEDS: HEPARIN SC (18:55)
[2024-10-18] MEDS: ROCEPHIN 1000 MG IV (18:55)
--- NOTE | 2024-10-18 19:02 | PTCARENOTE ---
Patient received from PACU in a bed; VSS; c/o mild abd cramping; ambulated to BR with assistance; urinated mod. amount yellow urine; call gold within reach; bed alarm in place; will continue to monitor.
[2024-10-18] MEDS: TYLENOL 650 MG PO (22:45)
[2024-10-18] MEDS: PRAVACHOL 20 MG PO (22:47)
[2024-10-19] MEDS: HEPARIN 5000 UNITS SC ×2 (00:29→09:02)
[2024-10-19 03:27] VITALS: BP 142/67
[2024-10-19] MEDS: DECADRON 6 MG IV (05:12)
[2024-10-19] MEDS: SYNTHROID 75 MCG PO (05:13)
[2024-10-19 06:57] LABS: Hematocrit 33.3 % (37.0-47.0); Hemoglobin 11.1 g/dL (12.0-16.0); Mean Corp Hgb Conc. 33.3 g/dL (33.0-37.0); Mean Corpuscular Hgb 31.6 pg (27.0-31.0); Mean Corpuscular Volume 94.9 fL (81.0-99.0); Mean Platelet Volume 10.5 fL (7.4-10.4); Platelet Count 188 10^3/uL (130-400); Red Blood Cell Count 3.51 10^6/uL (4.20-5.40); Red Cell Dist. Width 13.4 % (11.5-14.5); White Blood Cell Count 9.9 10^3/uL (4.8-10.8)
[2024-10-19 07:11] LABS: Blood Urea Nitrogen 36 mg/dl (7-17); Calcium 8.8 mg/dl (8.4-10.2); Carbon Dioxide 20 mmol/L (22-30); Chloride 112 mmol/L (98-107); Estimated Creatinine Clearance 36 ml/min; Glucose 127 mg/dl (70-99); Potassium 4.2 mmol/L (3.5-5.1); Sodium 141 mmol/L (135-145); eGFR 55.21
[2024-10-19 07:25] VITALS: BP 136/65
[2024-10-19] MEDS: EXELON PATCH 4.6 MG TRANSDERM (09:01)
[2024-10-19] MEDS: VITAMIN D3 (cholecalciferol) 25 MCG PO (09:02)
[2024-10-19] MEDS: VITAMIN B-12 1000 MCG PO (09:03)
[2024-10-19] MEDS: MOLNUPIRAVIR (EUA) 800 MG PO (09:03)
[2024-10-19] MEDS: ZITHROMAX 500 MG PO (09:03)
[2024-10-19] MEDS: FOLVITE 1 MG PO (09:03)
[2024-10-19] MEDS: LOW STRENGTH ASPIRIN 81 MG PO (09:03)
[2024-10-19] MEDS: OSCAL 500 + D 500 MG PO (09:04)
[2024-10-19] MEDS: ZESTRIL 10 MG PO (09:04)
[2024-10-19] MEDS: NORVASC 10 MG PO (09:04)
[2024-10-19] MEDS: TYLENOL 650 MG PO (09:24)
--- NOTE | 2024-10-19 09:41 | W.PN.URO.CBU ---
Today's Communication / Plan
-
outpt f/u with dr newton
Assessment / Plan
-
right ureteral stone
ecoli bacteremia- presumed urinary source
pt stable after stent placement
cleared for discharge urologically
pt should call to schedule f/u with dr newton to discuss timing/scheduling of definitive stone therapy
call with any questions
Diagnosis
-
Date of Service: October 19, 2024
-
Patient Diagnosis:
right ureteral stone
ecoli bacteremia
Post Op Day:
right ureteral stent 10/18
Subjective
-
pt without complaint
afebrile
wbc normal
Objective
-
Vital Signs
Temp Pulse Resp BP Pulse Ox
97.7 F 57 16 136/65 95
10/19/24 07:25 10/19/24 09:04 10/19/24 07:25 10/19/24 09:04 10/19/24 09:16
Intake and Output
10/18/24 10/19/24 10/20/24
06:59 06:59 06:59
Intake Total 960 / 960 1200 / 1200
Output Total 725 / 725
Balance 960 / 960 475 / 475
Intake:
Oral fluids 960 / 960 240 / 240
IV fluids (Total) 960 / 960
Output:
Urine, Voided 725 / 725
Other:
Number of approximated SMALL 1
amounts of urine
Number of approximated MODERATE 1 1
amounts of urine
Number of approximated LARGE 5
amounts of urine
How many times incontinent 2
SATURATED amount urine
Laboratory Results
10/19/24 06:10
10/19/24 06:10
Physical Exam
-
General - no acute distress
--- NOTE | 2024-10-19 10:37 | W.PN.ID1 ---
Date of Service
Date of Service: October 19, 2024
Today's Communication
Transition ceftriaxone (d5) to doxycycline 100mg po bid through 10/28/24.
DC azithromycin
Continue molnupiravir 800 mg p.o. twice daily x 5 days (last dose 10/20/24 evening).
OK for DC home today.
Assessment / Plan
# E.coli bacteremia x 2 sets.
# Right pyelonephritis with obstructive uropathy - s/p ureteral stent placement 10/18/24
# Leukocytosis with bandemia - resolved
- Repeat blood cx's neg to date
- Transition ceftriaxone (d5) to doxycycline 100mg po bid through 10/28/24.
# Pneumonia
- COVID vs bacterial CAP
- urine legionella and strep pneumo ag neg (low sensitivity tests)
-DC ceftriaxone and p.o. azithromycin (d5)
# Mild symptomatic COVID19
- Sxs onset 10/14
- Hypoxic insufficiency - resolved
-Continue molnupiravir 800 mg p.o. twice daily x 5 days (last dose 10/20/24 evening).
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
Hypertension
Graves' disease
Gastric sarcoma status post resection
History of bladder cancer status post excision
Mild to moderate aortic regurgitation
HLD
Carotid artery stenosis s/p RIGHT carotid endarterectomy with patch angioplasty using bovine pericardium (08/28/24)
chronic adhesional pain s/p abdominal surgery,
WALT/BSO
Appendectomy
Cholecystectomy
Chief Complaint
-: Pneumonia, UTI, Bacteremia and Other (COVID)
Subjective / Review of Systems
Feels well. No complaints today.
Vital Signs / Physical Exam
Vital Signs
Vital Signs
Temp Pulse Resp BP Pulse Ox
97.7 F 57 16 136/65 95
10/19/24 07:25 10/19/24 09:04 10/19/24 07:25 10/19/24 09:04 10/19/24 09:16
Physical Exam
Constitutional: No Acute Distress and Comfortable
Cardiovascular: Regular Rate and S1/S2
Pulmonary: Clear
Gastrointestinal: Soft, Non Tender, Non Distended and Normal Bowel Sounds
Genito-Urinary: Negative CVA Tenderness
Extremities: Negative Edema
Neurological: AO x 3
Objective Data
Lab Data
Lab Results
10/19/24 06:10
10/19/24 06:10
PT 16.4 Sec (11.4-14.6) H 10/15/24 23:55
INR 1.29 10/15/24 23:55
APTT 35.4 Sec (23.4-35.0) H 10/15/24 23:55
Estimated Creat Clear 36 ml/min 10/19/24 06:10
Lactic Acid 1.2 mmol/L (0.7-2.0) 10/15/24 21:25
Total Bilirubin 0.7 mg/dl (0.2-1.3) 10/16/24 05:35
AST 33 U/L (14-36) 10/16/24 05:35
ALT 17 U/L (0-35) 10/16/24 05:35
Alkaline Phosphatase 97 U/L (38-126) 10/16/24 05:35
Most recent labs reviewed.
Micro Results:
10/17/24 09:46 Blood Culture - Preliminary
Blood/Venous No Growth in 48 hours- Final report to follow
10/15/24 15:53 Blood Culture - Final
Blood/Venous Escherichia coli
Gram Stain - Final
10/15/24 15:53 Blood Culture - Final
Blood/Venous Escherichia coli
Gram Stain - Final
10/17/24 10:45 Blood Culture - Preliminary
Blood/Venous No Growth in 24 hours- Final report to follow
10/16/24 08:49 Urine Culture - Final
Urine
10/16/24 08:49 Legionella Urinary Antigen - Final
Urine Negative for Legionella pneumophila Serogroup 1 antigen.
A negative result does not rule out the possiblity of
Legionella infection due to other serogroups or species of
Legionella. Clinical correlation is recommended.
Streptococcus pneumoniae Antigen (M - Final
Negative for Streptococcus pneumoniae antigen.
A negative result does not exclude infection with
Streptococcus pneumoniae. Clinical correlation is
recommended.
10/15/24 15:53 Influenza Types A & B (ONEL) - Final
Nasal Swab Negative for Influenza A & B, NAAT
Negative results must be combined with clinical observations
and patient history.
Nucleic Acid Amplification test (NAAT)performed on the
[employer] platform.
10/15/24 CXR: There are new patchy bibasilar airspace opacities concerning for pneumonia.
10/16/24 Head/Neck CTA: Bilateral carotid plaque with nonhemodynamically significant stenosis of the proximal internal carotid arteries bilaterally, right greater than left, as detailed above. Findings suspicious for small chronic dissection of the
proximal right internal carotid artery.
10/17/24 CT a/p: There is a 7 mm stone in the proximal right ureter with associated mild right-sided hydronephrosis. There is a small wedge-shaped focus of mild hypoenhancement within the inferior pole the right kidney suspicious for focal
pyelonephritis.
Care Review
Plan reviewed with: Physician (Dr. Gallardo)
[2024-10-19 10:56] VITALS: PULSE 80; O2SAT 95
[2024-10-19 11:12] VITALS: BP 140/54; BP 148/68; BP 148/74; PULSE 61; PULSE 69; PULSE 72
[2024-10-19] MEDS: VIBRAMYCIN 100 MG PO (11:35)
[2024-10-19] MEDS: VISBIOME 2 CAP PO (11:35)
--- NOTE | 2024-10-19 11:51 | W.PN.HOSP.TC ---
Today's Communication/Plan
-
Discharge home
Assessment / Plan
Assessment / Plan
IMPRESSION:
Patient is a pleasant 83 years old with a history of hypertension, hyperlipidemia, hypothyroidism, carotid stenosis status post right carotid artery endarterectomy, who came to the ER combined with daughter at bedside for change in status,
was diagnosed with COVID on Tuesday and patient started sneezing 2 days ago and tested positive for COVID today.
found to have sepsis with elevated white count and acute renal failure.
Chest x-ray done in the ER shows There are new patchy bibasilar airspace opacities concerning for pneumonia.
Patient developed unresponsive event and stroke alert
MRI shows no acute finding, patient back to baseline
CT abdomen pelvis done shows: 7 mm stone in the proximal right ureter with associated mild right-sided hydronephrosis. There is a small wedge-shaped focus of mild hypoenhancement within the inferior pole the right kidney suspicious for focal
pyelonephritis.
Trace bilateral pleural effusions with adjacent airspace opacities which may represent atelectasis or pneumonia.
Status post cystoscopy and stent placement.
Cleared for discharge home.
Follow-up as outpatient with urology
Patient cleared for discharge by urology and cleared by discharge by infectious disease on oral doxycycline for 10-days
Assessment/plan:
Severe sepsis with acute organ dysfunction
Patient meets sepsis criteria on admission
Elevated white count to 27.9
Bandemia 22
Source of infection is COVID/bacterial pneumonia/pyelonephritis
Organ dysfunction in form of acute metabolic encephalopathy/acute renal failure
hypotension and lactic acidosis
Start IV fluid
Start IV antibiotic in form of Rocephin/azithromycin
IV dexamethasone
Blood culture pending
Urine culture pending
Consulted infectious disease.
10/16
Overnight event of unresponsiveness.
2/2 blood cultures came back positive for gram-negative bacilli.
Infectious disease recommending to continue current antibiotic.
10/17
MRI negative
Patient back to baseline
Improved leukocytosis
Repeat blood culture pending
10/18
Continue to improve leukocytosis.
Blood culture remains negative.
10/19
Discharge home on oral doxycycline
Obstructive nephropathy with right-sided hydronephrosis/pyelonephritis
CT abdomen pelvis done shows: 7 mm stone in the proximal right ureter with associated mild right-sided hydronephrosis. There is a small wedge-shaped focus of mild hypoenhancement within the inferior pole the right kidney suspicious for focal
pyelonephritis.
Patient denies abdominal pain.
Continue Rocephin.
Urology consulted
for OR today by urology.
10/19
Status post cystoscopy and stent placement.
Cleared for discharge home.
Follow-up as outpatient with urology
Status post fall
CT head ordered
Fall precautions.
PT/OT consult.
Social service for discharge planning.
COVID-pneumonia
Continue infectious disease per
completed molnupiravir 800 mg p.o. twice daily x 5 days.
Episodes of unresponsiveness rule out acute CVA.
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
Episodes of unresponsiveness
Stroke alert called
CT head shows no acute finding.
CTA Neck showed No new occlusion or severe narrowing. Compared to prior exam, there is resolution of the moderate focal narrowing of the origin of the right internal carotid artery with persistent moderate focal narrowing just distally at the side
of prior dissection. The carotid arteries were other calles patent.
The bilateral vertebral arteries are widely patent
Moderate centrilobular emphysema. Moderate atherosclerotic calcifications of the aortic arch. Prior thyroidectomy.
CTA Head showed No occlusion or significant stenosis.
MRI pending.
Patient completely back to baseline.
Neurology consulted
10/17
MRI negative.
Patient back to baseline.
10/19
Hold trazodone on Dc
Acute renal failure
continue IV fluid hydration.
Avoid nephrotoxins.
Hold lisinopril/amlodipine
Creatinine improved
10/17
Resolved, discontinue IV fluid
Acute metabolic encephalopathy
Secondary to sepsis/rule out acute CVA
Superimposed with underlying mild dementia.
Continue to monitor
Lactic acidosis
Resolved
Hypertension
Currently hypotensive, hold amlodipine and lisinopril
10/17
Kidney function improved.
Blood pressure improved
Resume Norvasc today and lisinopril 10
History of hypercholesterolemia
Continue statin
CODE STATUS: Full code
DVT prophylaxis: Heparin
Diet: Regular diet
Family communication: Discussed with daughter at bedside, and discussed with the other daughter in the phone.
Total time spent on today's encounter was 65 minutes which included time spent in counseling the patient/family regarding diagnosis and treatment plan as listed above, goals of care, and symptom management. Case was discussed with nursing staff,
specialists, and care coordinators/case management. All labs and imaging personally reviewed by me. Remainder the time spent in detailed review of previous records, lab data, imaging, and other medical provider documentation.
Anticipated Discharge: Today
Subjective/Interval History
-
Date of Service: October 19, 2024
Patient seen and examined at bedside, sitting in a chair, daughter at bedside.
Patient denies any chest pain or shortness of breath, complaining of mild diabetes abdominal pain, no nausea, no vomiting, no diarrhea or constipation.
Otherwise cleared for discharge home.
Objective Data
-
Labs:
Laboratory Results
10/19/24
06:10
WBC 9.9
Hgb 11.1 L
Hct 33.3 L
Plt Count 188 D
Sodium 141
Potassium 4.2
Chloride 112 H
Carbon Dioxide 20 L
BUN 36 H
Creatinine 1.0
Glucose 127 H
Calcium 8.8
Vital Signs:
Vital Signs
Temp Pulse Resp BP Pulse Ox
98.0 F 61 16 140/54 98
10/19/24 11:12 10/19/24 11:12 10/19/24 11:12 10/19/24 11:12 10/19/24 11:12
I&O
10/18/24 10/19/24 10/20/24
06:59 06:59 06:59
Intake Total 960 / 960 1200 / 1200
Output Total 725 / 725
Balance 960 / 960 475 / 475
Physical Exam
-
General: Well Developed, Well Nourished, No Apparent Distress and Comfortable
HEENT: Normocephalic, Atraumatic, Moist Mucous Membranes, No Ptosis, PERRLA and Nose Appears Normal
Respiratory: Clear to Auscultation and Non Labored Respirations
Cardiac: Regular Rhythm and S1/S2
Breast: Deferred by me
GI: Soft, Nontender, Nondistended and Normal Bowel Sounds
Genito-urinary: No Costovertebral Tender
Musculoskeletal: No Clubbing, No Cyanosis and No Edema
Skin: Warm
Neuro: Awake, Alert, Oriented, AO x 3 and No Motor Deficits
Psych: Calm
Data Reviewed
-
Diagnostic Radiology: Image personally visualized and interpreted and Report Reviewed by me
CT Scan: Image personally visualized and interpreted and Report Reviewed by me
Ultrasound: Image personally visualized and interpreted and Report Reviewed by me
MRI: Image personally visualized and interpreted and Report Reviewed by me
Medical Tests (Nuc Med, Echo etc): Image personally visualized and interpreted and Report Reviewed by me
Labs: Labs Reviewed by me
Old Records: Reviewed
--- NOTE | 2024-10-19 12:01 | W.DCSUMMARY ---
Discharge Summary
Discharge Data
Date of Admission: 10/15/24
Date of Discharge: 10/19/24
-
Pending Results: No
Hospital Course
Hospital course
Patient is a pleasant 83 years old with a history of hypertension, hyperlipidemia, hypothyroidism, carotid stenosis status post right carotid artery endarterectomy, who came to the ER combined with daughter at bedside for change in status,
was diagnosed with COVID on Tuesday and patient started sneezing 2 days ago and tested positive for COVID today.
found to have sepsis with elevated white count and acute renal failure.
Chest x-ray done in the ER shows There are new patchy bibasilar airspace opacities concerning for pneumonia.
Patient developed unresponsive event and stroke alert
MRI shows no acute finding, patient back to baseline
CT abdomen pelvis done shows: 7 mm stone in the proximal right ureter with associated mild right-sided hydronephrosis. There is a small wedge-shaped focus of mild hypoenhancement within the inferior pole the right kidney suspicious for focal
pyelonephritis.
Trace bilateral pleural effusions with adjacent airspace opacities which may represent atelectasis or pneumonia.
Status post cystoscopy and stent placement.
Cleared for discharge home.
Follow-up as outpatient with urology
Patient cleared for discharge by urology and cleared by discharge by infectious disease on oral doxycycline for 10-days
During hospitalization patient was treated from the [facility]
Severe sepsis with acute organ dysfunction
Patient meets sepsis criteria on admission
Elevated white count to 27.9
Bandemia 22
Source of infection is COVID/bacterial pneumonia/pyelonephritis
Organ dysfunction in form of acute metabolic encephalopathy/acute renal failure
hypotension and lactic acidosis
Start IV fluid
Start IV antibiotic in form of Rocephin/azithromycin
IV dexamethasone
Blood culture pending
Urine culture pending
Consulted infectious disease.
10/16
Overnight event of unresponsiveness.
2/ blood cultures came back positive for gram-negative bacilli.
Infectious disease recommending to continue current antibiotic.
10/17
MRI negative
Patient back to baseline
Improved leukocytosis
Repeat blood culture pending
10/18
Continue to improve leukocytosis.
Blood culture remains negative.
10/19
Discharge home on oral doxycycline
Obstructive nephropathy with right-sided hydronephrosis/pyelonephritis
CT abdomen pelvis done shows: 7 mm stone in the proximal right ureter with associated mild right-sided hydronephrosis. There is a small wedge-shaped focus of mild hypoenhancement within the inferior pole the right kidney suspicious for focal
pyelonephritis.
Patient denies abdominal pain.
Continue Rocephin.
Urology consulted
for OR today by urology.
10/19
Status post cystoscopy and stent placement.
Cleared for discharge home.
Follow-up as outpatient with urology
Status post fall
CT head ordered
Fall precautions.
PT/OT consult.
Social service for discharge planning.
COVID-pneumonia
Continue infectious disease per
completed molnupiravir 800 mg p.o. twice daily x 5 days.
Episodes of unresponsiveness rule out acute CVA.
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
Episodes of unresponsiveness
Stroke alert called
CT head shows no acute finding.
CTA Neck showed No new occlusion or severe narrowing. Compared to prior exam, there is resolution of the moderate focal narrowing of the origin of the right internal carotid artery with persistent moderate focal narrowing just distally at the side
of prior dissection. The carotid arteries were other calles patent.
The bilateral vertebral arteries are widely patent
Moderate centrilobular emphysema. Moderate atherosclerotic calcifications of the aortic arch. Prior thyroidectomy.
CTA Head showed No occlusion or significant stenosis.
MRI pending.
Patient completely back to baseline.
Neurology consulted
10/17
MRI negative.
Patient back to baseline.
10/19
Hold trazodone on Dc
Acute renal failure
continue IV fluid hydration.
Avoid nephrotoxins.
Hold lisinopril/amlodipine
Creatinine improved
10/17
Resolved, discontinue IV fluid
Acute metabolic encephalopathy
Secondary to sepsis/rule out acute CVA
Superimposed with underlying mild dementia.
Continue to monitor
Lactic acidosis
Resolved
Hypertension
Currently hypotensive, hold amlodipine and lisinopril
10/17
Kidney function improved.
Blood pressure improved
Resume Norvasc today and lisinopril 10
History of hypercholesterolemia
Continue statin
CODE STATUS: Full code
DVT prophylaxis: Heparin
Diet: Regular diet
Family communication: Discussed with daughter at bedside, and discussed with the other daughter in the phone.
Total time spent on today's encounter was 40 minutes which included time spent in counseling the patient/family regarding diagnosis and treatment plan as listed above, goals of care, and symptom management. Case was discussed with nursing staff,
specialists, and care coordinators/case management. All labs and imaging personally reviewed by me. Remainder the time spent in detailed review of previous records, lab data, imaging, and other medical provider documentation.
Anticipated Discharge: Today
Discharge Plan
-
Patient Disposition: Home (Routine Discharge)
Discharge Diagnosis/Procedures: Sepsis secondary to UTI.
COVID.
Acute renal failure, resolved
Kidney stone status post cystoscopy
Diet: As tolerated
Activity: With assistance
Driving Restrictions: No driving
Wound Care: due to kidney stent- expect blood in urine, urinary urgency and frequency and some discomfort with urination
Referrals:
Fritz Akins MD [Family Provider] -
Haroldo Pearson Jr., MD [Active] - (call after discharge to schedule appointment to discuss follow up stone surgery)
Additional Discharge Medication Instructions: Doxycycline antibiotic for 10 days along with probiotic, please hold trazodone for now.
Prescriptions:
New
doxycycline hyclate 100 mg Capsule
100 mg PO Q12 10 Days Qty: 20 0RF
NewFlora 10 billion cell capsule
10,000 mmu cells PO DAILY Qty: 10 0RF
Continued
acetaminophen 500 mg Tablet
1,000 mg PO BID
amlodipine 10 mg Tablet
10 mg PO DAILY
lisinopril 10 mg Tablet
10 mg PO DAILY
folic acid 1 mg Tablet
1 mg PO DAILY
pravastatin 20 mg Tablet
20 mg PO HS
cholecalciferol (vitamin D3) [Vitamin D3] 25 mcg (1,000 unit) Capsule
25 mcg PO DAILY
Caltrate 600 plus D 600 mg-20 mcg (800 unit) Tablet,Chewable
1 tab PO DAILY
rivastigmine 4.6 mg/24 hour Patch 24 Hour
1 patch TRANSDERMAL DAILY
cyanocobalamin (vitamin B-12) 1,000 mcg Tablet
1,000 mcg PO DAILY
levothyroxine 75 mcg Tablet
75 mcg PO DAILY
aspirin 81 mg Tablet,Chewable
81 mg PO DAILY
Held
trazodone 50 mg Tablet
100 mg PO HS
Hold Instructions: Hold until follow-up with primary care physician
Discharge Orders:
Discharge Patient (As Directed); Ordered 10/19/24
Ordered By: Tylor Gallardo
Discharge Date and Time
Print Language: MACEDONIAN
--- NOTE | 2024-10-19 14:50 | CM ---
Addendum entered by EMILIO Hamilton 10/19/24 15:12:
IMM reviewed-tubed down to unit for chart. It is signed.
Original Note:
Spoke with patient's daughter, Mariluz who confirmed that she is coming to transport patient. She stated that she will stay with patient as well for supervision and patient's also lives with her. Offered VN services, however, patient's
daughter stated that they have a PT/OT outpatient center at the community and she will have patient go.
Plan: Case management will continue to follow and assist with discharge planning. Home with daughter and .
[2024-10-19 15:15] VITALS: BP 154/76
== END 2024-10-19 17:51 | disposition home or self-care (01) | DRG 853 ==
LOC: 2 NORTH 17:15
PROVIDERS: Nurse Practitioner; Nurse Practitioner Family; Student in an Organized Health Care Education/Training Program; ADMITTING PHYSICIAN General Practice; CONSULT PHYSICIAN Psychiatry & Neurology Neurology; CONSULT PHYSICIAN Specialist; EMERGENCY PHYSICIAN Emergency Medicine; FAMILY PHYSICIAN Internal Medicine Geriatric Medicine; OTHER PHYSICIAN Internal Medicine Infectious Disease
PROC: 3E0DXGC Introduction of Other Therapeutic Substance into Mouth and Pharynx, External Approach (ICD-10-PCS; 2024-10-16)
PROC: 0T768DZ Dilation of Right Ureter with Intraluminal Device, Via Natural or Artificial Opening Endoscopic (ICD-10-PCS; 2024-10-18)
DX: A41.51 Sepsis due to Escherichia coli [E. coli] (principal); G93.41 Metabolic encephalopathy; U07.1 COVID-19; J12.82 Pneumonia due to coronavirus disease 2019; I77.71 Dissection of carotid artery; N17.9 Acute kidney failure, unspecified; E87.20 Acidosis, unspecified; N13.6 Pyonephrosis; N13.8 Other obstructive and reflux uropathy; R65.20 Severe sepsis without septic shock; I10 Essential (primary) hypertension; E89.0 Postprocedural hypothyroidism; E78.00 Pure hypercholesterolemia, unspecified; K21.9 Gastro-esophageal reflux disease without esophagitis; I95.9 Hypotension, unspecified; F03.A0 Unspecified dementia, mild, without behavioral disturbance, psychotic disturbance, mood disturbance, and anxiety; E86.0 Dehydration; G47.00 Insomnia, unspecified; E05.00 Thyrotoxicosis with diffuse goiter without thyrotoxic crisis or storm; I35.1 Nonrheumatic aortic (valve) insufficiency; I67.1 Cerebral aneurysm, nonruptured; R40.4 Transient alteration of awareness; N89.5 Stricture and atresia of vagina; S09.90XA Unspecified injury of head, initial encounter; W01.198A Fall on same level from slipping, tripping and stumbling with subsequent striking against other object, initial encounter; Y92.231 Patient bathroom in hospital as the place of occurrence of the external cause; Z79.82 Long term (current) use of aspirin; Z79.890 Hormone replacement therapy; Z85.51 Personal history of malignant neoplasm of bladder; Z87.891 Personal history of nicotine dependence; Z79.899 Other long term (current) drug therapy
CPT/HCPCS: 36600; 70450; 70496; 70498; 70551; 71046; 74018; 74177; 76000; 80048; 80053; 80306; 81003; 81015; 82140; 82550; 82805; 82962; 83605; 84439; 84443; 85025; 85027; 85610; 85730; 87040; 87086; 87149; 87186; 87205; 87449; 87502; 87811; 87899; 93005; 96374; 96375; 97110; 97116; 97162; 97166; 99285; A9575; C2617; Q9967

== ENCOUNTER 2024-11-01 05:58 | Day surgery (SDC) | payer OTHER, SELFPAY ==
[2024-11-01] VITALS (9 sets, daily range): BP systolic 123–144; BP diastolic 47–88; BMI 23.4
[2024-11-01] MEDS: NORMOSOL-R/PLASMALYTE-A 1000 IV (06:46)
[2024-11-01] MEDS: Pyridium 200 MG PO (08:50)
[2024-11-05 09:39] LABS: Stone Analysis Mass 111 mg
== END 2024-11-01 09:47 | disposition home or self-care (01) ==
LOC: SDS 05:58
PROVIDERS: ATTENDING PHYSICIAN Specialist
DX: N20.1 Calculus of ureter (principal)
CPT/HCPCS: 52356; 74018; 76000; 82365; C1894; C2617

== ENCOUNTER → 2024-12-17 13:07 | Outpatient (REF) | payer OTHER, SELFPAY | LOC: RAD 13:07 | PROVIDERS: ATTENDING PHYSICIAN Physician Assistant; FAMILY PHYSICIAN Internal Medicine Geriatric Medicine | DX: I65.29 Occlusion and stenosis of unspecified carotid artery (principal) | CPT/HCPCS: 93880 ==

== ENCOUNTER 2025-02-26 16:33 | Emergency (ER) | payer OTHER, SELFPAY ==
[2025-02-26] VITALS (7 sets, daily range): BP systolic 138–165; BP diastolic 57–84; BMI 25.8
[2025-02-26] MEDS: NSS 500 IV (18:09)
--- NOTE | 2025-02-26 18:14 | ED.GENMED ---
History of Present Illness
<Rosemary Gallardo PA-C - Last Filed: 02/27/25 13:51>
General
Chief Complaint: Abdominal Pain
Source: patient and family
Exam Limitations: dementia
Time Seen by Provider: 02/26/25 17:41
Nursing documentation reviewed up to this point in time: agreed with
History of Present Illness
History of Present Illness:
Patient is a 84 y.o F w/ hx HTN, HLD, GERD, past hx stomach and bladder CA who presents to the emergency department for evaluation of upper abdominal pain and vomiting. Patient states his symptoms initially started yesterday evening with nausea
however she was then woken in the middle the night and had a few episodes of vomiting and diarrhea. Her states that she was so weak in the middle the night she 'collapsed'. He was present at this time and denies any head strike. She did
not lose consciousness.
Patient states that vomiting and diarrhea have improved however she has had a persist aching pain in her upper abdomen radiating around into her back. No known fevers. No chest pain or shortness of breath. No urinary symptoms. No black or bloody
vomit/stool.
Patient has had a past cholecystectomy in the 1980s.
Past History
<Rosemary Gallardo PA-C - Last Filed: 02/27/25 13:51>
Past History
ED Past Medical History: Cancer (Gallbladder CA), HTN and Other (Hyperthyroid)
ED Past Surgical History: Cholecystectomy, Gynecological (Hysterectomy) and Urological (Bladder tumor with surgery)
Social History
Tobacco: Former smoker
Alcohol: None
Personal:
Living: with family
Phy Exam
<Rosemary Gallardo PA-C - Last Filed: 02/27/25 13:51>
Physical Exam
Physical Exam:
Vitals: Mildly hypertensive, otherwise vital signs stable. Afebrile
General: Patient is well appearing, no acute distress
Skin: Warm and dry, no rashes or lesions
Head: Normocephalic, atraumatic
Eyes: Sclera nonicteric.
Throat: Protecting airway
Neck: Normal ROM, no cervical spine tenderness, no meningismus
Cardiac: Regular rate and rhythm, no murmurs.
Pulm: Normal respiratory effort, no wheezes, rales, rhonchi heard on exam
Abdomen: Abdomen soft. Mild tenderness in epigastric/right upper quadrant. No rebound tenderness or guarding. No ecchymosis or rash
Extremities: No evidence of cyanosis or edema
Neuro: AAOx2. Grossly intact.
Psychiatric: Normal affect.
Course
<Rosemary Gallardo PA-C - Last Filed: 02/27/25 13:51>
Orders/Labs/Results
Orders:
Orders
02/26/25 18:00
Electrocardiogram (*1) Urgent
Reason for Study: Abdominal Pain
EKG- Treatment ONCE
02/26/25 18:01
0.9% Sodium Chloride 500 ml [Nss] 500 ml IV BOLUS
02/26/25 18:06
Complete Blood Count/With Diff Urgent
Troponin I Urgent
02/26/25 18:07
Comprehensive Metabolic Panel Urgent
Lipase Urgent
02/26/25 18:45
CT Abd/pelvis W Iv Cont Urgent
Comment:
Reason For Exam: Upper abdominal pain
02/26/25 20:08
Urinalysis Reflex To Culture Urgent
Date Specimen was Collected: 02/26/25
Time Specimen was Collected: 20:03
Urine Microscopic Reflex Cult Urgent
Urine Culture Urgent
CARMITA Source: U
Specimen Description:
Date Specimen was Collected: 02/26/25
Time Specimen was Collected: 20:03
02/26/25 20:29
Lactic Acid Q4H
Comment: CANCEL 2nd LACTIC ACID IF 1st LACTIC ACID IS LESS THAN 2
02/26/25 21:54
Amoxicillin 875 mg/Clav 125 mg [Augmentin 875 mg/125 mg] 1 tablet PO NOW STA
Abnormal Lab Results
02/26/25 02/26/25 02/26/25
18:06 18:07 20:08
WBC 13.4 H 10^3/uL
(4.8-10.8)
Hct 47.3 H %
(37.0-47.0)
Abs Immat Gran (auto) 0.1 H 10^3/uL
(0-0.05)
Absolute Neuts (auto) 10.9 H 10^3/uL
(1.4-6.5)
Absolute Monos (auto) 0.9 H 10^3/uL
(0.1-0.6)
Neutrophils % 80.9 H %
(42.2-75.2)
Lymphocytes % 11.4 L %
(20.5-51.1)
BUN 21 H mg/dl
(7-17)
Creatinine 1.2 H mg/dL
(0.6-1.0)
Glucose 121 H mg/dl
(70-99)
Calcium 10.4 H mg/dl
(8.4-10.2)
Total Bilirubin 1.5 H mg/dl
(0.2-1.3)
Lipase 389 H U/L
(23-300)
Ur Occult Blood Reflex 1+ A
(Negative)
Leukocyte Esterase Rfl 2+ A
(Negative)
Urine RBC 3-6 A /HPF
(0-2)
Urine WBC (Reflex) 30-40 A /HPF
(0-5)
Urine Bacteria (Reflex) Few A
(Negative)
Urine Yeast Moderate A
(Negative)
Urine Albumin (Reflex) 2+ A
(Neg - Trace)
02/26/25 18:06
02/26/25 18:07
Vital Signs
Initial and Last Documented VS:
Initial Vital Signs
Temp Pulse Resp BP Pulse Ox
97.7 F 78 16 154/84 98
02/26/25 16:43 02/26/25 16:43 02/26/25 16:43 02/26/25 16:43 02/26/25 16:43
Last Documented Vital Signs
Temp Pulse Resp BP Pulse Ox
97.7 F 78 15 152/57 97
02/26/25 16:43 02/26/25 22:00 02/26/25 22:00 02/26/25 22:00 02/26/25 22:00
<Baldomero Mason, DO - Last Filed: 02/26/25 21:38>
Orders/Labs/Results
Orders:
Orders
02/26/25 18:00
Electrocardiogram (*1) Urgent
Reason for Study: Abdominal Pain
EKG- Treatment ONCE
02/26/25 18:01
0.9% Sodium Chloride 500 ml [Nss] 500 ml IV BOLUS
02/26/25 18:06
Complete Blood Count/With Diff Urgent
Troponin I Urgent
02/26/25 18:07
Comprehensive Metabolic Panel Urgent
Lipase Urgent
02/26/25 18:45
CT Abd/pelvis W Iv Cont Urgent
Comment:
Reason For Exam: Upper abdominal pain
02/26/25 20:08
Urinalysis Reflex To Culture Urgent
Date Specimen was Collected: 02/26/25
Time Specimen was Collected: 20:03
Urine Microscopic Reflex Cult Urgent
Urine Culture Urgent
CARMITA Source: U
Specimen Description:
Date Specimen was Collected: 02/26/25
Time Specimen was Collected: 20:03
02/26/25 20:29
Lactic Acid Q4H
Comment: CANCEL 2nd LACTIC ACID IF 1st LACTIC ACID IS LESS THAN 2
02/26/25 21:54
Amoxicillin 875 mg/Clav 125 mg [Augmentin 875 mg/125 mg] 1 tablet PO NOW STA
Abnormal Lab Results
02/26/25 02/26/25 02/26/25
18:06 18:07 20:08
WBC 13.4 H 10^3/uL
(4.8-10.8)
Hct 47.3 H %
(37.0-47.0)
Abs Immat Gran (auto) 0.1 H 10^3/uL
(0-0.05)
Absolute Neuts (auto) 10.9 H 10^3/uL
(1.4-6.5)
Absolute Monos (auto) 0.9 H 10^3/uL
(0.1-0.6)
Neutrophils % 80.9 H %
(42.2-75.2)
Lymphocytes % 11.4 L %
(20.5-51.1)
BUN 21 H mg/dl
(7-17)
Creatinine 1.2 H mg/dL
(0.6-1.0)
Glucose 121 H mg/dl
(70-99)
Calcium 10.4 H mg/dl
(8.4-10.2)
Total Bilirubin 1.5 H mg/dl
(0.2-1.3)
Lipase 389 H U/L
(23-300)
Ur Occult Blood Reflex 1+ A
(Negative)
Leukocyte Esterase Rfl 2+ A
(Negative)
Urine RBC 3-6 A /HPF
(0-2)
Urine WBC (Reflex) 30-40 A /HPF
(0-5)
Urine Bacteria (Reflex) Few A
(Negative)
Urine Yeast Moderate A
(Negative)
Urine Albumin (Reflex) 2+ A
(Neg - Trace)
02/26/25 18:06
02/26/25 18:07
Vital Signs
Initial and Last Documented VS:
Initial Vital Signs
Temp Pulse Resp BP Pulse Ox
97.7 F 78 16 154/84 98
02/26/25 16:43 02/26/25 16:43 02/26/25 16:43 02/26/25 16:43 02/26/25 16:43
Last Documented Vital Signs
Temp Pulse Resp BP Pulse Ox
97.7 F 78 15 152/57 97
02/26/25 16:43 02/26/25 22:00 02/26/25 22:00 02/26/25 22:00 02/26/25 22:00
<Rosemary Gallardo PA-C - Last Filed: 02/27/25 13:51>
MDM/Problems Addressed
Differential Diagnosis Includes:
Not limited to: Pancreatitis, gastritis, choledocholithiasis, bowel obstruction, appendicitis, diverticulitis, etc.
MDM/Problems Addressed:
84-year-old female presenting with persistent upper abdominal pain after multiple episodes of vomiting and diarrhea last night/this morning. No fevers. No chest pain or shortness of breath. No urinary symptoms. Vitals and physical exam as above.
Patient non-toxic appearing. Abdomen soft with tenderness in upper abdomen, more so on left side. Cardio/pulmonary assessment unremarkable.
Differential as above. Patient has a hx of cholecystectomy. ED plan: labs, UA, CT scan abdomen/pelvis. Will give IV fluids. Patient declines any analgesia.
Update: Labs reviewed. Mild leukocytosis. Chemistry with mild renal insufficiency and elevation in lipase likely secondary to G.I. losses/dehydration. Urine equivocal for infection however I favor contamination given many squamous cells and no
urinary complaints. CT scan with findings of likely gastritis/enteritis. Lactic acid is normal � do not suspect ischemic cause today. Possibly viral or bacterial in nature. Patient unable to provide stool sample in ED.
Patient has remained hemodynamically stable without any episodes of vomiting, in no pain while in ED. Did offer admission for hydration, further monitoring, IV antibiotics. Patient and her family very much prefer discharge home. Given patient is
afebrile and has been asymptomatic � I do feel this is a reasonable decision. We�ll plan to cover patient with antibiotics with concern of possible infectious enteritis as well as UTI pending culture. Advised bland diet, discussed importance of
staying well hydrated and repeat labwork w/ primary care. Very strict return precautions discussed. Patient and patients family comfortable with plan.
Patient seen with attending physician.
Chronic conditions affecting care:
Hypertension, GERD
Acute Exacerbation and/or Progression of Chronic Illness:
N/A
<Rosemary Gallardo PA-C - Last Filed: 02/27/25 13:51>
*Radiology
Radiology exam reviewed: radiology read reviewed
*Pulse Oximetry
SaO2: 97
Oxygen Mode of Delivery: Room air
Patient hypoxic: no
*EKG
Interpreted by ED Provider?: Yes
EKG Intrepretation Date: 02/26/25
Interpretation: abnormal
Comparison EKG: changes noted
Heart Rate: 73
Rate: normal
Rhythm: sinus
[place]: left axis deviation
Interval: normal QT interval
QRS Pattern: left vent hypertrophy
Ischemia: non-specific ST changes
*Nurse Specialist Interpretation
Rate: normal
Interpretation: normal
Heart Rate: 82
Rhythm: sinus
*Critical Care Note
Total Time (30-74mins, 75-104mins- exclusive of procedures): Not Applicable
ED Attending Note
<Rosemary Gallardo PA-C - Last Filed: 02/27/25 13:51>
-
Portions of this chart may have been created with voice recognition software.� Occasional wrong word or��sound alike� substitutions may have occurred due to the inherent limitations of voice recognition software.
<Baldomero Mason DO - Last Filed: 02/26/25 21:38>
ED Attending Note
Patient seen and examined by attending physician: Yes
I performed a history and physical exam of patient and discussed management with resident, I reviewed resident's note and agree with documented findings and plan of care.: Yes
ED Attending Note:
Seen with PA examined independently, 85-year-old female GI symptoms, feeling better after IV fluids, labs noted CAT scan report noted she is smiling now drinking ice water, consideration for short course of empiric antibiotics versus just bland diet
of note she has a normal lactic acid
Discharge Plan
Departure
Patient Disposition: Home (Routine Discharge)
Date of Disposition: 02/26/25
Time of Disposition: 21:49
Patient with high blood pressure during this ER visit?: Yes
Condition: Good
Discharge Problem:
Enteritis, Abdominal pain
Instructions: Abdominal pain in adults (DC), [place] diet, Nausea and vomiting in adults - ED (DC)
Prescriptions:
New
amoxicillin-pot clavulanate 875-125 mg tablet
1 tab PO BID Qty: 14 0RF
No Action
trazodone 50 mg Tablet
50 mg PO BID
acetaminophen 500 mg Tablet
1,000 mg PO BID
amlodipine 10 mg Tablet
10 mg PO DAILY
lisinopril 10 mg Tablet
10 mg PO DAILY
folic acid 1 mg Tablet
1 mg PO DAILY
pravastatin 20 mg Tablet
20 mg PO HS
cholecalciferol (vitamin D3) [Vitamin D3] 25 mcg (1,000 unit) Capsule
25 mcg PO DAILY
Caltrate 600 plus D 600 mg-20 mcg (800 unit) Tablet,Chewable
1 tab PO DAILY
rivastigmine 4.6 mg/24 hour Patch 24 Hour
1 patch TRANSDERMAL DAILY
cyanocobalamin (vitamin B-12) 1,000 mcg Tablet
1,000 mcg PO DAILY
levothyroxine 75 mcg Tablet
75 mcg PO DAILY
aspirin 81 mg Tablet,Chewable
81 mg PO DAILY
Referrals:
Fritz Akins MD [Family Provider, Internal Medicine] - Follow up in 2-3 days
Activity Restrictions/Additional Instructions:
RETURN TO THE EMERGENCY DEPARTMENT ANY FEVER, CHILLS, PERSISTENT/WORSENING ABDOMINAL PAIN, INTRACTABLE NAUSEA/VOMITING, SIGNS OF SEVERE DEHYDRATION, SIGNIFICANT WEAKNESS, WORSENING IN CURRENT SYMPTOMS, OR ANY OTHER CONCERNS
- As discussed�your CT scan showed evidence of enteritis (inflammation around the stomach/small bowel). This may be viral or bacterial in nature. Your lab work showed some elevation in your white blood cell count as well as mild elevation in your
kidney function. You should have repeat labs performed to ensure the kidney function returns to normal.
-A prescription for antibiotics has been sent to your pharmacy. Please take this twice a day for the next week.
- It is important stay well-hydrated. I would recommend a bland diet over the next few days. You can take Tylenol as needed for pain. You can try [id number] Pepcid to ease upper abdominal discomfort.
- Please follow-up with your primary care provider in a few days to ensure symptoms are improving.
Monitor your symptoms very closely and return to the emergency department with any acute worsening/new symptoms or any signs of worsening infection
Interventions
Interventions:
*Risk Screen - Suicide Last Done: 02/26/25 16:43
*General Assessment Last Done: 02/26/25 17:46
*Neglect/Abuse Screening Last Done: 02/26/25 16:43
*ED- Fall Risk Assessment Last Done: 02/26/25 17:46
*ED COVID-19 Vaccine History Last Done: 02/26/25 17:46
*Nursing Disposition Last Done: 02/26/25 22:22
[id number] Assessment Last Done: 02/26/25 17:46
Discharge Date and Time
Discharge Date/Time: 02/26/25 22:24
Print Language: CHINESE
[2025-02-26 18:17] LABS: Hematocrit 47.3 % (37.0-47.0); Hemoglobin 15.8 g/dL (12.0-16.0); Mean Corp Hgb Conc. 33.4 g/dL (33.0-37.0); Mean Corpuscular Volume 92.4 fL (81.0-99.0); Nucleated Red Blood Cells % 0 %; Platelet Count 253 10^3/uL (130-400); Red Cell Dist. Width 13.4 % (11.5-14.5)
[2025-02-26 18:41] LABS: ALT (SGPT) 15 U/L (0-35); AST (SGOT) 22 U/L (14-36); Albumin 5.0 g/dl (3.5-5.0); Alkaline Phosphatase 101 U/L (38-126); Blood Urea Nitrogen 21 mg/dl (7-17); Calcium 10.4 mg/dl (8.4-10.2); Carbon Dioxide 23 mmol/L (22-30); Chloride 105 mmol/L (98-107); Estimated Creatinine Clearance 29 ml/min; Glucose 121 mg/dl (70-99); Lipase 389 U/L (23-300); Potassium 4.2 mmol/L (3.5-5.1); Sodium 138 mmol/L (135-145); Total Protein 7.5 g/dl (6.3-8.2); eGFR 44.08
[2025-02-26 18:54] LABS: Troponin I 0.020 ng/ml
[2025-02-26 20:19] LABS: Urine Character Slightly Cloudy (Clear)
[2025-02-26 20:36] LABS: Urine Squamous Cell >30 /LPF (Few)
[2025-02-26 20:38] LABS: Urine White Cell 30-40 /HPF (0-5)
[2025-02-26] MEDS: AUGMENTIN 875 MG/125 MG 1 TABLET PO (22:12)
== END 2025-02-26 22:24 | disposition home or self-care (01) ==
LOC: EMR 16:33
PROVIDERS: Physician Assistant; EMERGENCY PHYSICIAN Emergency Medicine; FAMILY PHYSICIAN Internal Medicine Geriatric Medicine
DX: K52.9 Noninfective gastroenteritis and colitis, unspecified (principal); E86.0 Dehydration; N28.9 Disorder of kidney and ureter, unspecified; F03.90 Unspecified dementia, unspecified severity, without behavioral disturbance, psychotic disturbance, mood disturbance, and anxiety; I10 Essential (primary) hypertension; E78.5 Hyperlipidemia, unspecified; K21.9 Gastro-esophageal reflux disease without esophagitis; E05.90 Thyrotoxicosis, unspecified without thyrotoxic crisis or storm; Z87.891 Personal history of nicotine dependence; Z85.09 Personal history of malignant neoplasm of other digestive organs; Z85.51 Personal history of malignant neoplasm of bladder; Z90.5 Acquired absence of kidney
CPT/HCPCS: 99284; 96360; 74177; 80053; 81003; 81015; 83605; 83690; 84484; 85025; 87086; 93005; Q9967